=== PATIENT | female | born 1960 | race Caucasian/White ===

== ENCOUNTER 2017-02-14 21:44 | Inpatient (IN) | payer OTHER ==
[~2017-02-14] VITALS: Ht 172.7 cm; Wt 96.0 kg
[2017-02-14 21:45] VITALS: BP 135/83; PULSE 129; RESP 16; TEMP 98.2; O2SAT 96
[2017-02-15] MEDS ORDERED: BENA10TA PO (00:08)
[2017-02-15] MEDS ORDERED: SODIUM CHLOR 0.9% 1000 ML INJ 1,000 ML IV SCH (00:26)
[2017-02-15] MEDS ORDERED: MORPHINE SULFATE 4 MG/ML INJ IV PUSH ONE ×2 (00:30→03:00)
[2017-02-15] MEDS ORDERED: SODIUM CHLORIDE 0.9% FLUSH 10 ML FLUSH IV FLUSH PRN ×3 (00:30→23:00)
[2017-02-15] MEDS ORDERED: ONDANSETRON HCL 4 MG/2 ML VIAL IVP ONE (00:30)
[2017-02-15 00:42] LABS: AUTOMATED NEUTROPHIL # 10.8 TH/MM3 (1.8-7.7); BASOPHIL % 0.3 % (0.0-2.0); EOSINOPHIL % 0.1 % (0.0-4.0); HEMATOCRIT 38.1 % (35.0-46.0); HEMO FLAGS DIFF FINAL; LYMPH % 5.5 % (9.0-44.0); LYMPHOCYTE # 0.7 TH/MM3 (1.0-4.8); MEAN CELL VOLUME 79.7 FL (80.0-100.0); MEAN CORPUSCULAR HEMOGLOBIN 25.1 PG (27.0-34.0); MEAN CORPUSCULAR HGB CONC 31.4 % (32.0-36.0); MONO % 6.8 % (0.0-8.0); NEUT % 87.3 % (16.0-70.0); PLATELET COUNT 446 TH/MM3 (150-450); RED BLOOD COUNT 4.78 MIL/MM3 (4.00-5.30); RED CELL DISTRIBUTION WIDTH 16.1 % (11.6-17.2); WHITE BLOOD COUNT 12.3 TH/MM3 (4.0-11.0)
[2017-02-15 00:55] LABS: APTT (PATIENT) 25.7 SEC (24.3-30.1); PROTHROMBIN TIME - PATIENT 10.7 SEC (9.8-11.6)
[2017-02-15 01:03] VITALS: BP 127/61; PULSE 98; RESP 18; O2SAT 96
[2017-02-15 01:03] LABS: ALT (GPT) 17 U/L (10-53); ANION GAP 12 MEQ/L (5-15); AST (GOT) 15 U/L (15-37); BICARBONATE 21.1 MEQ/L (21.0-32.0); BLOOD UREA NITROGEN 18 MG/DL (7-18); CHLORIDE 104 MEQ/L (98-107); GLOMERULAR FILTRATION RATE 74 ML/MIN (>89); POTASSIUM 4.1 MEQ/L (3.5-5.1); SODIUM (NA) 137 MEQ/L (136-145)
[2017-02-15 01:07] LABS: ALKALINE PHOSPHATASE 95 U/L (45-117); INDIRECT BILIRUBIN 0.3 MG/DL (0.0-0.8); TOTAL BILIRUBIN ADULT 0.4 MG/DL (0.2-1.0)
[2017-02-15] MEDS ORDERED: IOHEXOL 350 MG/ML 10 ML VIAL (for RAD DIAG) IV ONE (01:41)
--- NOTE | 2017-02-15 01:56 | RADRPT ---
EXAM DATE/TIME: 02/15/2017 01:18 [place] COMPARISON: No previous studies available for comparison. INDICATIONS : Diffuse abdominal pain, fever, vomiting and constipation. IV CONTRAST: 75 cc Omnipaque 350 (iohexol) IV ORAL CONTRAST: No oral contrast ingested. RADIATION DOSE: 10.16 CTDIvol (mGy) MEDICAL HISTORY : Hypertension. SURGICAL HISTORY : None. ENCOUNTER: Initial ACUITY: 1 week PAIN SCALE: 8/10 LOCATION: All quadrants. TECHNIQUE: Volumetric scanning of the abdomen and pelvis was performed. Using automated exposure control and ad justment of the mA and/or kV according to patient size, radiation dose was kept as low as reasonably achievable to obtain optimal diagnostic quality images. DICOM format image data is available electro nically for review and comparison. FINDINGS: LOWER LUNGS: Linear atelectasis/scarring in both lung bases. Small paraesophageal hiatal hernia. LIVER: Homogeneous density without lesion. There is no dilation of the biliary tree. No calcified gallston es. SPLEEN: Normal size without lesion. PANCREAS: Within normal limits. KIDNEYS: Normal in size and shape. There is no mass, stone or hydronephrosis. Small renal cortical cysts. ADRENAL GLANDS: Within normal limits. VASCULAR: There is no aortic aneurysm. BOWEL/MESENTERY: Significant distention of the small bowel and colon with a discrete transition in the region of the s igmoid. At the transition point, there appears to be some bowel wall thickening and increased density possibly representing carcinoma. The distal sigmoid and rectum are normal in caliber. No significant diverticular disease identified. ABDOMINAL WALL: Within normal limits. RETROPERITONEUM: There is no lymphadenopathy. BLADDER: No wall thickening or mass. REPRODUCTIVE: Within normal limits. Uterus is retroverted. Very small amount of free fluid in the deep pelvis. INGUINAL: There is no lymphadenopathy or hernia. MUSCULOSKELETAL: Within normal limits for patient age. CONCLUSION: 1. Air and fluid distention of the small bowel and colon with a discrete transition in the region of the sigmoid. Distal sigmoid and rectum are normal in caliber. 2. At the transition point, there is focal restriction of the bowel lumen with increased density. Fin dings could represent carcinoma. Sigmoidoscopy is recommended for further evaluation. No regional colby nopathy or distant metastatic disease identified. 3. Retroverted uterus. Félix Andujar MD on February 15, 2017 at 1:46 Board Certified Radiologist. This report was verified electronically.
--- NOTE | 2017-02-15 02:54 | PD ---
HPI Chief Complaint: GI Complaint Time Seen by Provider: 00:16 Travel History International Travel<30 days: No Contact w/Intl Traveler<30days: No Traveled to known affect area: No History of Present Illness HPI Patient is a 56-year-old female comes in complaining of abdominal pain with nausea and vomiting. She says the pain started Saturday night after eating dinner. She says the pain is mostly been located in her upper abdomen, but sometimes goes down to the lower abdomen. She says the pain seems to be waxing and waning. She has had nausea and vomiting for the past few days. She says today the pain got much worse. She has not had any fever or chills. She denies any dysuria. She has never had any abdominal surgeries. [facility] Past Medical History Diminished Hearing: No Hypertension: Yes Immunizations Current: Yes Tetanus Vaccination: < 5 Years Influenza Vaccination: Yes ?: Unknown LMP: CURRENT : 1 Para: 1 Past Surgical History Surgical History: No Previous Surgery Social History Alcohol Use: No Tobacco Use: No Substance Use: No Allergies-Medications (Allergen,Severity, Reaction): Coded Allergies: No Known Allergies (Unverified , 02/14/17) Reported Meds & Prescriptions Reported Meds & Active Scripts Active Reported Benazepril (Benazepril HCl) 10 Mg Tab 10 Mg PO DAILY Review of Systems Except as stated in HPI: all other systems reviewed are Neg General / Constitutional: No: Fever, Chills HENT: No: Headaches Cardiovascular: No: Chest Pain or Discomfort Respiratory: No: Shortness of Breath Gastrointestinal: Positive: Nausea, Vomiting, Abdominal Pain, Constipation, No : Diarrhea Genitourinary: No: Dysuria Skin: No Rash, No Change in Pigmentation Neurologic: No: Weakness, Dizziness Physical Exam Narrative GENERAL: Awake and alert, in mild distress due to pain. SKIN: Focused skin assessment warm/dry. HEAD: Atraumatic. Normocephalic. EYES: Pupils equal and round. No scleral icterus. ENT: Mucous membranes pink and moist. NECK: Trachea midline. No JVD. CARDIOVASCULAR: Regular rate and rhythm. No murmur appreciated. RESPIRATORY: No accessory muscle use. Clear to auscultation. Breath sounds equal bilaterally. GASTROINTESTINAL: Abdomen is distended and tense. Diffuse tenderness to palpation, worse in the right upper quadrant and epigastric area. No rebound, voluntary guarding. MUSCULOSKELETAL: No obvious deformities. No clubbing. No cyanosis. No edema. NEUROLOGICAL: Awake and alert. No obvious cranial nerve deficits. Motor grossly within normal limits. Normal speech. PSYCHIATRIC: Appropriate mood and affect; insight and judgment normal. Data Data Last Documented VS Vital Signs Date Time Temp Pulse Resp B/P Pulse Ox O2 Delivery O2 Flow Rate FiO2 02/15/17 01:03 98 18 127/61 96 Room Air 02/14/17 21:45 98.2 Orders Electrocardiogram (02/14/17 ) Basic Metabolic Panel (Bmp) (02/15/17:26) Complete Blood Count With Diff (02/15/17:) Lipase (02/15/17) Lactic Acid (02/15/17) Prothrombin Time / Inr (Pt) (02/15/17:) Act Partial Throm Time (Ptt) (02/15/17) Urinalysis - C+S If Indicated (02/15/17:) Ua Includes Microscopic (02/15/17) Ct Abd/Pel W Iv Contrast(Rout) (02/15/17:) Iv Access Insert/Monitor (02/15/17:) Ecg Monitoring (02/15/17:) Oximetry (02/15/17:) Morphine Inj (Morphine Inj) (02/15/17 00:30) Ondansetron Inj (Zofran Inj) (02/15/17 00:30) Sodium Chlor 0.9% 1000 Ml Inj (Ns 1000 M (02/15/17:26) Sodium Chloride 0.9% Flush (Ns Flush) (02/15/17 00:30) Ed Urine Pregnancytest Poc (02/15/17 00:26) Hepatic Functional Panel (02/15/17:) Troponin I (02/15/17 00:25) Iohexol 350 Inj (Omnipaque 350 Inj) (02/15/17 01:41) Admit To Inpatient (02/15/17 ) Vital Signs (Adult) Q4H (02/15/17 02:49) Activity Oob With Assistance (02/15/17 02:49) Dado Operator / Telemetry .CONTINUOUS (02/15/17 02:49) Intake + Output MICHAEL.QSHIFT (02/15/17 02:49) Diet Npo (02/15/17 Breakfast) Sodium Chlor 0.9% 1000 Ml Inj (Ns 1000 M (02/15/17 02:49) Sodium Chloride 0.9% Flush (Ns Flush) (02/15/17 03:00) Sodium Chloride 0.9% Flush (Ns Flush) (02/15/17 09:00) Ondansetron Inj (Zofran Inj) (02/15/17 03:00) Basic Metabolic Panel (Bmp) (02/16/17 06:00) Complete Blood Count With Diff (02/16/17 06:00) Naloxone Inj (Narcan Inj) (02/15/17 03:00) Inpatient Certification (02/15/17 ) Consult General Surgery (02/15/17 ) Admit Order (Ed Use Only) (02/15/17 ) Insert Ng Tube (02/15/17 02:51) Ondansetron Inj (Zofran Inj) (02/15/17 03:00) Morphine Inj (Morphine Inj) (02/15/17 03:00) Morphine Inj (Morphine Inj) (02/15/17 03:00) Labs Laboratory Tests Test 02/15/17 02/15/17 00:25 02:25 White Blood Count 12.3 TH/MM3 Red Blood Count 4.78 MIL/MM3 Hemoglobin 12.0 GM/DL Hematocrit 38.1 % Mean Corpuscular Volume 79.7 FL Mean Corpuscular Hemoglobin 25.1 PG Mean Corpuscular Hemoglobin 31.4 % Concent Red Cell Distribution Width 16.1 % Platelet Count 446 TH/MM3 Mean Platelet Volume 9.4 FL Neutrophils (%) (Auto) 87.3 % Lymphocytes (%) (Auto) 5.5 % Monocytes (%) (Auto) 6.8 % Eosinophils (%) (Auto) 0.1 % Basophils (%) (Auto) 0.3 % Neutrophils # (Auto) 10.8 TH/MM3 Lymphocytes # (Auto) 0.7 TH/MM3 Monocytes # (Auto) 0.8 TH/MM3 Eosinophils # (Auto) 0.0 TH/MM3 Basophils # (Auto) 0.0 TH/MM3 CBC Comment DIFF FINAL Differential Comment Prothrombin Time 10.7 SEC Prothromb Time International 1.0 RATIO Ratio Activated Partial 25.7 SEC Thromboplast Time Sodium Level 137 MEQ/L Potassium Level 4.1 MEQ/L Chloride Level 104 MEQ/L Carbon Dioxide Level 21.1 MEQ/L Anion Gap 12 MEQ/L Blood Urea Nitrogen 18 MG/DL Creatinine 0.81 MG/DL Estimat Glomerular Filtration 74 ML/MIN Rate Random Glucose 122 MG/DL Lactic Acid Level 0.8 mmol/L Calcium Level 9.2 MG/DL Total Bilirubin 0.4 MG/DL Direct Bilirubin 0.1 MG/DL Indirect Bilirubin 0.3 MG/DL Aspartate Amino Transf 15 U/L (AST/SGOT) Alanine Aminotransferase 17 U/L (ALT/SGPT) Alkaline Phosphatase 95 U/L Troponin I LESS THAN 0.02 NG/ML Total Protein 8.5 GM/DL Albumin 3.5 GM/DL Lipase 103 U/L Urine Color YELLOW Urine Turbidity HAZY Urine pH 6.0 Urine Specific [place] GREATER THAN 1.050 Urine Protein 30 mg/dL Urine Glucose (UA) NEG mg/dL Urine Ketones 150 mg/dL Urine Occult Blood LARGE Urine Nitrite NEG Urine Bilirubin SMALL Urine Urobilinogen LESS THAN 2.0 MG/DL Urine Leukocyte Esterase MOD Urine RBC /hpf Urine WBC /hpf Urine Squamous Epithelial 1 /hpf Cells Urine Hyaline Casts 20 /lpf Urine Granular Casts 4 /lpf Urine Waxy Casts 12 /lpf Urine Mucus FEW /lpf Urine Yeast (Budding) FEW Microscopic Urinalysis Comment CULTURE INDICATED MDM Medical Decision Making Medical Screen Exam Complete: Yes Emergency Medical Condition: Yes Interpretation(s) ECG shows sinus tachycardia, no ST elevation or depression. Differential Diagnosis Bowel obstruction versus colitis versus cholecystitis versus pancreatitis Narrative Course Patient is a 56-year-old female who comes in complaining of abdominal pain with nausea and vomiting. Exam shows distended abdomen, tender to palpation diffusely. IV established, labs sent. Labs show no acute abnormalities. Patient given IV fluids, morphine, Zofran. CT abdomen and pelvis shows concern for bowel obstruction with a transition point in the sigmoid colon which is concerning for malignancy. Due to placed. Surgery consultation. Patient admitted for further management. Diagnosis Primary Impression: Bowel obstruction Qualified Code: K56.69 - Other specified intestinal obstruction Admitting Information Admitting Physician Requests: Admit Condition: Stable Jessica Gardner MD Feb 15, 2017 02:54
[2017-02-15 02:57] LABS: BLOOD, URINE LARGE (NEG); COMMENT (UR) CULTURE INDICATED; CULTURE IF INDICATED CULTURE INDICATED; GLUCOSE,URINE NEG (NEG); GRANULAR CAST, URINE 4 /lpf; HYALINE CAST, URINE 20 /lpf (RARE); KETONE, URINE 150 mg/dL (NEG); MUCUS URINE FEW /lpf (OCC); NITRITE,URINE NEG (NEG); SQUAMOUS EPITHELIAL CELL URINE 1 /hpf (0-5); URINE COLOR YELLOW (YELLW/STRAW); WAXY CAST, URINE 12 /lpf
[2017-02-15] MEDS ORDERED: ONDANSETRON HCL 4 MG/2 ML VIAL IV PUSH ONE ×2 (03:00→12:00)
[2017-02-15] MEDS ORDERED: NALOXONE HCL 0.4 MG/ML AMP IV PRN ×2 (03:00→22:45)
[2017-02-15] MEDS ORDERED: ONDANSETRON HCL 4 MG/2 ML VIAL IVP PRN (03:00)
[2017-02-15] MEDS: SODIUM CHLOR 0.9% 1000 ML INJ 1,000 ML IV SCH ×3 (03:09→22:45)
[2017-02-15 03:24] VITALS: BP 132/59
[2017-02-15 03:48] VITALS: BP 123/64; PULSE 105; RESP 17; TEMP 98; O2SAT 98
--- NOTE | 2017-02-15 04:19 | HHI.HP ---
[facility] Service [facility] Primary Care Physician Non-Staff Admission Diagnosis Bowel obstruction Diagnoses: Chief Complaint: epigastric pain Travel History International Travel<30 Days: No Contact w/Intl Traveler <30 Da: No Traveled to Known Affected Are: No History of Present Illness Written by KATIE Espinal acting as scribe for [Braxton] on 02/15/17 at 04: 19. 56 y/o female with a history of HTN came to the ED with complaints of epigastric pain since Saturday, that continues to worsen with associated nausea and vomiting 2-3 times a day. She has not been able to eat since Saturday She has been able to have a small BM and pass gas. She has been having fevers and chills , but did not take a temperature. Denies any chest pain, or sob. Last Sigmoscopy was 8 years ago in which just showed hemorrhoids. She is currently here visiting from [place]. Review of Systems Constitutional: COMPLAINS OF: Fever, Chills Respiratory: DENIES: Cough, Shortness of breath Cardiovascular: DENIES: Chest pain, Lower Extremity Edema Gastrointestinal: COMPLAINS OF: Abdominal pain, Nausea, Vomiting, DENIES: Constipation, Diarrhea Genitourinary: DENIES: Hematuria, Dysuria Musculoskeletal: DENIES: Back pain, Neck pain Integumentary: DENIES: Rash Hematologic/lymphatic: DENIES: Lymphadenopathy Immunologic/allergic: DENIES: Urticaria Neurologic: DENIES: Headache Past Family Social History Past Medical History HTN Past Surgical History Patient denies any surgical history Reported Medications Reported Meds & Active Scripts Active Reported Benazepril (Benazepril HCl) 10 Mg Tab 10 Mg PO DAILY Allergies: Coded Allergies: No Known Allergies (Unverified , 02/14/17) Active Ordered Medications Current Medications Medications (Trade) Dose Ordered Sig/Jose E Route Start Time Stop Time Status Last Admin (NS 1000 ml Inj) 1,000 ml @ 100 mls/hr Q10H IV 02/15/17 02:49 02/15/17 03:09 (NS Flush) 2 ml UNSCH PRN IV FLUSH 02/15/17 03:00 (NS Flush) 2 ml BID IV FLUSH 02/15/17 09:00 (Zofran Inj) 4 mg Q6H PRN IVP 02/15/17 03:00 (Narcan Inj) 0.4 mg UNSCH PRN IV 02/15/17 03:00 (Morphine Inj) 2 mg Q3H PRN IV PUSH 02/15/17 03:00 Family History Patient denies any family history no heart disease or cancers. Social History Patient denies any tobacco, alcohol or illicit drug use. Physical Exam Vital Signs Vital Signs Date Time Temp Pulse Resp B/P Pulse Ox O2 Delivery O2 Flow Rate FiO2 02/15/17 03:24 111 16 132/59 96 02/15/17 01:03 98 18 127/61 96 Room Air 02/14/17 21:45 98.2 129 16 135/83 96 Room Air Physical Exam GENERAL: This is a well-nourished, well-developed patient, in no apparent distress. SKIN: No rashes, ecchymoses or lesions. Cool and dry. HEAD: Atraumatic. Normocephalic. EYES: Pupils equal round and reactive. Extraocular motions intact. ENT: Nose without bleeding, purulent drainage or septal hematoma. NECK: Trachea midline. No JVD or lymphadenopathy. CARDIOVASCULAR: Regular rate and rhythm without murmurs, gallops, or rubs. RESPIRATORY: Clear to auscultation. Breath sounds equal bilaterally. No wheezes , rales, or rhonchi. GASTROINTESTINAL: Abdomen soft, epigastric tenderness, nondistended. hypoactive BS MUSCULOSKELETAL: Extremities without clubbing, cyanosis, or edema. No joint tenderness, effusion, or edema noted. No calf tenderness. NEUROLOGICAL: Awake and alert. Motor and sensory grossly within normal limits.. Normal speech. Laboratory Laboratory Tests Test 02/15/17 02/15/17 00:25 02:25 White Blood Count 12.3 Red Blood Count 4.78 Hemoglobin 12.0 Hematocrit 38.1 Mean Corpuscular Volume 79.7 Mean Corpuscular Hemoglobin 25.1 Mean Corpuscular Hemoglobin 31.4 Concent Red Cell Distribution Width 16.1 Platelet Count 446 Mean Platelet Volume 9.4 Neutrophils (%) (Auto) 87.3 Lymphocytes (%) (Auto) 5.5 Monocytes (%) (Auto) 6.8 Eosinophils (%) (Auto) 0.1 Basophils (%) (Auto) 0.3 Neutrophils # (Auto) 10.8 Lymphocytes # (Auto) 0.7 Monocytes # (Auto) 0.8 Eosinophils # (Auto) 0.0 Basophils # (Auto) 0.0 CBC Comment DIFF FINAL Differential Comment Prothrombin Time 10.7 Prothromb Time International 1.0 Ratio Activated Partial 25.7 Thromboplast Time Sodium Level 137 Potassium Level 4.1 Chloride Level 104 Carbon Dioxide Level 21.1 Anion Gap 12 Blood Urea Nitrogen 18 Creatinine 0.81 Estimat Glomerular Filtration 74 Rate Random Glucose 122 Lactic Acid Level 0.8 Calcium Level 9.2 Total Bilirubin 0.4 Direct Bilirubin 0.1 Indirect Bilirubin 0.3 Aspartate Amino Transf 15 (AST/SGOT) Alanine Aminotransferase 17 (ALT/SGPT) Alkaline Phosphatase 95 Troponin I LESS THAN 0.02 Total Protein 8.5 Albumin 3.5 Lipase 103 Urine Color YELLOW Urine Turbidity HAZY Urine pH 6.0 Urine Specific [place] GREATER THAN 1.050 Urine Protein 30 Urine Glucose (UA) NEG Urine Ketones 150 Urine Occult Blood LARGE Urine Nitrite NEG Urine Bilirubin SMALL Urine Urobilinogen LESS THAN 2.0 Urine Leukocyte Esterase MOD Urine RBC Urine WBC Urine Squamous Epithelial 1 Cells Urine Hyaline Casts 20 Urine Granular Casts 4 Urine Waxy Casts 12 Urine Mucus FEW Urine Yeast (Budding) FEW Microscopic Urinalysis Comment CULTURE INDICATED Date/Time Procedure Status Source Growth 02/15/17 02:25 Urine Culture Received Urine Random Urine Pending Result Diagram: 02/15/17 0025 02/15/17 0025 Imaging Last Impressions Abdomen/Pelvis CT 02/15/17 0026 Signed Impressions: Service Date/Time: Wednesday, February 15, 2017 01:18 - CONCLUSION: 1. Air and fluid distention of the small bowel and colon with a discrete transition in the region of the sigmoid. Distal sigmoid and rectum are normal in caliber. 2. At the transition point, there is focal restriction of the bowel lumen with increased density. Findings could represent carcinoma. Sigmoidoscopy is recommended for further evaluation. No regional adenopathy or distant metastatic disease identified. 3. Retroverted uterus. Félix Andujar MD Assessment and Plan Problem List: (1) Small bowel obstruction ICD Code: K56.69 Status: Acute (2) HTN (hypertension) ICD Code: I10 Status: Acute (3) Leukocytosis ICD Code: D72.829 Status: Acute Assessment and Plan 56 y/o female with a history of HTN came to the ED with complaints of epigastric pain since Saturday, that continues to worsen with associated nausea and vomiting 2-3 times a day. Small bowel obstruction Abdomen CT reviewed, shows Air and fluid distention of the small bowel and colon with a discrete transition in the region of the sigmoid. Distal sigmoid and rectum are normal in caliber. At the transition point, there is focal restriction of the bowel lumen with increased density. Findings could represent carcinoma. Sigmoidoscopy is recommended for further evaluation. No regional adenopathy or distant metastatic disease identified. -NGT placed to LIWS -Consult general surgery for recommendations -Consult GI for recommendations regarding increased density in the bowel lumen -IVF ordered, NPO Leukocytosis, WBC 12.3, likely source is bowel, possible UTI Abnormal UA -Urine culture pending -CBC in AM HTN, chronic, currently stable -resume home medications when no longer NPO DVT prophylaxis: SCDs This note was transcribed by tejal [Monique Doyle]. I, Dr. Taty Limon personally performed the history, physical exam, and medical decision making; and confirmed the accuracy of the information in the transcribed note. Authenticated by Dr. Taty Limon on02/15/17 at 04:19. Discussed Condition With Patient and family Physician Certification 2 Midnight Certification Type: Admission for Inpatient Services Order for Inpatient Services The services are ordered in accordance with Medicare regulations or non- Medicare payer requirements, as applicable. In the case of services not specified as inpatient-only, they are appropriately provided as inpatient services in accordance with the 2-midnight benchmark. Estimated LOS (days): 2 days is the estimated time the patient will need to remain in the hospital, assuming treatment plan goals are met and no additional complications. Post-Hospital Plan: Home Monique Doyle Feb 15, 2017 04:19 Taty Limon MD Feb 15, 2017 07:58
[2017-02-15] MEDS: MORPHINE SULFATE 8 MG/ML INJ IV PUSH PRN ×3 (06:00→15:54)
[2017-02-15 08:00] VITALS: BP 132/74; PULSE 122; RESP 16; TEMP 98; O2SAT 98
[2017-02-15] MEDS ORDERED: SODIUM CHLORIDE 0.9% FLUSH 10 ML FLUSH IV FLUSH SCH (09:00)
--- NOTE | 2017-02-15 09:05 | PD.CONS ---
HPI History of Present Illness This is a 56 year old female who presented to the emergency room for evaluation of abdominal pain with associated nausea and vomiting. She was in her normal state of health up until Saturday evening, when she had the sudden onset of diffuse abdominal pain. She describes this as some intermittent sharp, stabbing pain with no radiation with associated nausea and vomiting with bilious material. She denies any fevers or chills. She has had some mild abdominal distention/bloating. She does not normally have constipation but felt that she was constipated Saturday evening and therefore took several doses of MiraLAX. She reports that she had a soft brown stool yesterday. Other than the constipation Saturday, she has not had any changes in her bowel habits. She denies any decreased appetite or weight loss prior to Saturday. She denies any heartburn or reflux, hematemesis, melena, or hematochezia. Of note, she states that she just started her menses yesterday and did not want this to be confused as rectal bleeding. She has never had a full colonoscopy. She did have a sigmoidoscopy about 6 years ago for hemorrhoids. She denies any family history of esophageal, gastric, or colorectal cancer. CT scan of the abdomen and pelvis (02/15/17) disease revealed 1. Air and fluid distention of the small bowel and colon with a discrete transition in the region of the sigmoid. Distal sigmoid and rectum are normal in caliber. 2. At the transition point, there is focal restriction of the bowel lumen with increased density. Findings could represent carcinoma. Sigmoidoscopy is recommended for further evaluation. No regional adenopathy or distant metastatic disease identified. 3. Retroverted uterus. is following and has recommended endoscopic evaluation with sigmoidoscopy/colonoscopy. Of note she denies any history of diverticulosis or diverticulitis. PFSH Past Medical History HTN Hemorrhoids Past Surgical History Sigmoidoscopy Coded Allergies: No Known Allergies (Unverified , 02/14/17) Medications Allergies Coded Allergies Type Severity Reaction Last Updated Verified No Known Allergies 02/14/17 No Active Scripts Medications Dose Route/Sig Days Date Category Benazepril (Benazepril HCl) 10 Mg Tab 10 Mg PO DAILY 02/15/17 Reported Family History Denies any family history of esophageal, gastric, or colorectal cancer. Social History Patient denies any tobacco, alcohol or illicit drug use. Review of Systems Constitutional: COMPLAINS OF: Fatigue, DENIES: Fever, Weight loss, Chills Respiratory: DENIES: Cough, Shortness of breath Cardiovascular: DENIES: Chest pain Gastrointestinal: COMPLAINS OF: Abdominal pain, Constipation, Nausea, Vomiting , Swelling of Abdomen, DENIES: Black stools, Bloody stools, Diarrhea, Heartburn , Hematemesis Musculoskeletal: DENIES: Joint pain, Back pain Hematologic/lymphatic: DENIES: Bruising Neurologic: COMPLAINS OF: Headache Psychiatric: DENIES: Anxiety, Confusion GI Exam Vitals I&O Vital Signs Date Time Temp Pulse Resp B/P Pulse Ox O2 Delivery O2 Flow Rate FiO2 02/15/17 03:48 98.0 105 17 123/64 98 02/15/17 03:24 111 16 132/59 96 02/15/17 01:03 98 18 127/61 96 Room Air 02/14/17 21:45 98.2 129 16 135/83 96 Room Air I/O 02/14/17 02/14/17 02/14/17 02/15/17 02/15/17 02/15/17 07:00 15:00 23:00 07:00 15:00 23:00 Intake Total 0 ml Output Total 200 ml Balance -200 ml Intake Oral 0 ml Output Gastric Drainage Total 200 ml # Voids 0 # Bowel Movements 0 Imaging Last Impressions Abdomen/Pelvis CT 02/15/17 0026 Signed Impressions: Service Date/Time: Wednesday, February 15, 2017 01:18 - CONCLUSION: 1. Air and fluid distention of the small bowel and colon with a discrete transition in the region of the sigmoid. Distal sigmoid and rectum are normal in caliber. 2. At the transition point, there is focal restriction of the bowel lumen with increased density. Findings could represent carcinoma. Sigmoidoscopy is recommended for further evaluation. No regional adenopathy or distant metastatic disease identified. 3. Retroverted uterus. Félix Andujar MD Laboratory Test 02/15/17 02/15/17 00:25 02:25 White Blood Count 12.3 TH/MM3 Red Blood Count 4.78 MIL/MM3 Hemoglobin 12.0 GM/DL Hematocrit 38.1 % Mean Corpuscular Volume 79.7 FL Mean Corpuscular Hemoglobin 25.1 PG Mean Corpuscular Hemoglobin 31.4 % Concent Red Cell Distribution Width 16.1 % Platelet Count 446 TH/MM3 Mean Platelet Volume 9.4 FL Neutrophils (%) (Auto) 87.3 % Lymphocytes (%) (Auto) 5.5 % Monocytes (%) (Auto) 6.8 % Eosinophils (%) (Auto) 0.1 % Basophils (%) (Auto) 0.3 % Neutrophils # (Auto) 10.8 TH/MM3 Lymphocytes # (Auto) 0.7 TH/MM3 Monocytes # (Auto) 0.8 TH/MM3 Eosinophils # (Auto) 0.0 TH/MM3 Basophils # (Auto) 0.0 TH/MM3 CBC Comment DIFF FINAL Differential Comment Prothrombin Time 10.7 SEC Prothromb Time International 1.0 RATIO Ratio Activated Partial 25.7 SEC Thromboplast Time Sodium Level 137 MEQ/L Potassium Level 4.1 MEQ/L Chloride Level 104 MEQ/L Carbon Dioxide Level 21.1 MEQ/L Anion Gap 12 MEQ/L Blood Urea Nitrogen 18 MG/DL Creatinine 0.81 MG/DL Estimat Glomerular Filtration 74 ML/MIN Rate Random Glucose 122 MG/DL Lactic Acid Level 0.8 mmol/L Calcium Level 9.2 MG/DL Total Bilirubin 0.4 MG/DL Direct Bilirubin 0.1 MG/DL Indirect Bilirubin 0.3 MG/DL Aspartate Amino Transf 15 U/L (AST/SGOT) Alanine Aminotransferase 17 U/L (ALT/SGPT) Alkaline Phosphatase 95 U/L Troponin I LESS THAN 0.02 NG/ML Total Protein 8.5 GM/DL Albumin 3.5 GM/DL Lipase 103 U/L Urine Color YELLOW Urine Turbidity HAZY Urine pH 6.0 Urine Specific [place] GREATER THAN 1.050 Urine Protein 30 mg/dL Urine Glucose (UA) NEG mg/dL Urine Ketones 150 mg/dL Urine Occult Blood LARGE Urine Nitrite NEG Urine Bilirubin SMALL Urine Urobilinogen LESS THAN 2.0 MG/DL Urine Leukocyte Esterase MOD Urine RBC /hpf Urine WBC /hpf Urine Squamous Epithelial 1 /hpf Cells Urine Hyaline Casts 20 /lpf Urine Granular Casts 4 /lpf Urine Waxy Casts 12 /lpf Urine Mucus FEW /lpf Urine Yeast (Budding) FEW Microscopic Urinalysis Comment CULTURE INDICATED Date/Time Procedure Status Source Growth 02/15/17 02:25 Urine Culture Received Urine Random Urine Pending Physical Examination HEENT: Normocephalic; atraumatic; no jaundice. CHEST: CTA CARDIAC: RRR ABDOMEN: Soft, mildly distended, mild diffuse tenderness; no hepatosplenomegaly ; bowel sounds are present in all four quadrants. EXTREMITIES: No clubbing, cyanosis, or edema. SKIN: Normal; no rash; no jaundice. Rosacea SOFTWARE COMPUTER SPECIALIST: No focal deficits; alert and oriented times three. Assessment and Plan Plan ASSESSMENT: - Bowel obstruction with transition in sigmoid colon. Sudden onset of constipation, nausea/vomiting/abdominal pain Saturday. CT scan of the abdomen and pelvis (02/15/17) disease revealed 1. Air and fluid distention of the small bowel and colon with a discrete transition in the region of the sigmoid. Distal sigmoid and rectum are normal in caliber. 2. At the transition point, there is focal restriction of the bowel lumen with increased density. Findings could represent carcinoma. Sigmoidoscopy is recommended for further evaluation. No regional adenopathy or distant metastatic disease identified. 3. Retroverted uterus. No known history of diverticulosis, diverticulitis. GS is following and has recommended endoscopic evaluation with sigmoidoscopy/colonoscopy. No decreased appetite/weight loss until Saturday. No melena/rectal bleeding. Never had complete colonoscopy. Had sigmoidoscopy about 6 years ago for hemorrhoids. No family hx of esophageal, gastric, or colorectal cancer. NPO. NGT to LIWS. - Abdominal pain with n/v secondary to above. NPO, NGT to LIWS. - Leukocytosis, mild. 12.3 - HTN per attending. PLAN: - Plan for sigmoidoscopy/colonoscopy, possible sigmoid stent placement - Obtain consents - NPO - SSE x 2 this am - CEA, AFP, Ca19-9 - Monitor labs - GS following - Supportive care - Further recommendations to follow based on results of above - Pt seen and examined by Dr. Nam and myself and this note is written on his behalf Kusum Villalobos Feb 15, 2017 09:05
--- NOTE | 2017-02-15 09:18 | RADRPT ---
EXAM DATE/TIME: 02/15/2017 08:59 [facility] COMPARISON: CT ABDOMEN & PELVIS W CONTRAST, February 15, 2017, 1:18. INDICATIONS : Pain in abdomen since Saturday. MEDICAL HISTORY : None. SURGICAL HISTORY : None. ENCOUNTER: Initial ACUITY: 4 - 6 months PAIN SCORE: 10/10 LOCATION: Abdomen, epigastrum. FINDINGS: Supine view of the abdomen was performed. The abdominal bowel gas pattern is nonspecific. There is s ome air filled mildly dilated small bowel. There is some focal moderate to prominent dilatation of th e colon which was recently noted on the patient's CT scan of the abdomen/pelvis. The CT scan suggests a mass in the sigmoid colon suspicious for colon cancer. Residual contrast is seen in the urinary bl adder. The bony structures are grossly intact.. CONCLUSION: 1. Nonspecific bowel gas pattern 2. Focal prominent dilatation of the colon which appears to be secondary to a mass in the sigmoid col on suspicious for colon cancer as noted on the recent CT scan of the abdomen and pelvis.. Avery North MD on February 15, 2017 at 9:14 Board Certified Radiologist. This report was verified electronically.
[2017-02-15] MEDS: PROMETHAZINE INJ 25 MG/ML VIAL IM PRN (11:43)
[2017-02-15 12:00] VITALS: BP 140/65; PULSE 106; RESP 16; TEMP 98.8; O2SAT 97
[2017-02-15] MEDS ORDERED: NORMOSOL R INJ 2,000 ML IV ONE (12:00)
[2017-02-15] MEDS ORDERED: PROPOFOL 200 MG/20 ML AMP IV ONE ×2 (12:00→13:26)
[2017-02-15] MEDS ORDERED: LACTATED RINGER'S 1000 ML INJ 3,000 ML IV ONE (12:00)
--- NOTE | 2017-02-15 13:23 | EKG ---
Date Performed: 02/14/2017 Time Performed: 22:51:41 PTAGE: 56 years EKG: SINUS TACHYCARDIA ABNORMAL RHYTHM ECG NO PREVIOUS TRACING DOCTOR: Chris Conde Interpretating Date/Time 02/15/2017 13:22:06
[2017-02-15] MEDS ORDERED: DO NOT ADM ANY ANTICOAGULANT DRUGS PRN ×2 (13:55→22:00)
--- NOTE | 2017-02-15 13:55 | HHI.GIFU ---
Subjective Remarks Immediate postop note: Flexible sig with biopsy Indication: colonic obstruction with apparent mass in sigmoid colon Meds: GET Findings; Tumor located at 18-20cm from anal verge. Unable to get scope to pass through. Multiple biopsies taken. Rectum is normal, no other polypoid lesions. Objective Vitals I&O Vital Signs Date Time Temp Pulse Resp B/P Pulse Ox O2 Delivery O2 Flow Rate FiO2 02/15/17 03:48 98.0 105 17 123/64 98 02/15/17 03:24 111 16 132/59 96 02/15/17 01:03 98 18 127/61 96 Room Air 02/14/17 21:45 98.2 129 16 135/83 96 Room Air I/O 02/14/17 02/14/17 02/14/17 02/15/17 02/15/17 02/15/17 07:00 15:00 23:00 07:00 15:00 23:00 Intake Total 0 ml Output Total 200 ml Balance -200 ml Intake Oral 0 ml Output Gastric Drainage Total 200 ml # Voids 0 # Bowel Movements 0 Laboratory Laboratory Tests Test 02/15/17 02/15/17 02/15/17 00:25 02:25 10:53 White Blood Count 12.3 Red Blood Count 4.78 Hemoglobin 12.0 Hematocrit 38.1 Mean Corpuscular Volume 79.7 Mean Corpuscular Hemoglobin 25.1 Mean Corpuscular Hemoglobin 31.4 Concent Red Cell Distribution Width 16.1 Platelet Count 446 Mean Platelet Volume 9.4 Neutrophils (%) (Auto) 87.3 Lymphocytes (%) (Auto) 5.5 Monocytes (%) (Auto) 6.8 Eosinophils (%) (Auto) 0.1 Basophils (%) (Auto) 0.3 Neutrophils # (Auto) 10.8 Lymphocytes # (Auto) 0.7 Monocytes # (Auto) 0.8 Eosinophils # (Auto) 0.0 Basophils # (Auto) 0.0 CBC Comment DIFF FINAL Differential Comment Prothrombin Time 10.7 Prothromb Time International 1.0 Ratio Activated Partial 25.7 Thromboplast Time Sodium Level 137 Potassium Level 4.1 Chloride Level 104 Carbon Dioxide Level 21.1 Anion Gap 12 Blood Urea Nitrogen 18 Creatinine 0.81 Estimat Glomerular Filtration 74 Rate Random Glucose 122 Lactic Acid Level 0.8 Calcium Level 9.2 Total Bilirubin 0.4 Direct Bilirubin 0.1 Indirect Bilirubin 0.3 Aspartate Amino Transf 15 (AST/SGOT) Alanine Aminotransferase 17 (ALT/SGPT) Alkaline Phosphatase 95 Troponin I LESS THAN 0.02 Total Protein 8.5 Albumin 3.5 Lipase 103 Urine Color YELLOW Urine Turbidity HAZY Urine pH 6.0 Urine Specific [place] GREATER THAN 1.050 Urine Protein 30 Urine Glucose (UA) NEG Urine Ketones 150 Urine Occult Blood LARGE Urine Nitrite NEG Urine Bilirubin SMALL Urine Urobilinogen LESS THAN 2.0 Urine Leukocyte Esterase MOD Urine RBC Urine WBC Urine Squamous Epithelial 1 Cells Urine Hyaline Casts 20 Urine Granular Casts 4 Urine Waxy Casts 12 Urine Mucus FEW Urine Yeast (Budding) FEW Microscopic Urinalysis Comment CULTURE INDICATED Carcinoembryonic Antigen 22.9 CA 19-9 Antigen 169.2 Date/Time Procedure Status Source Growth 02/15/17 02:25 Urine Culture Received Urine Random Urine Pending Physical Exam HEENT: Pupils round and reactive to light; normocephalic; atraumatic; no jaundice. Throat is clear. NECK: Neck is supple, no JVD, no lymphadenopathy. CHEST: Chest is clear to auscultation and percussion. CARDIAC: Regular rate and rhythm with no murmur gallop or rubs. ABDOMEN: Soft, distended but not tender. EXTREMITIES: No clubbing, cyanosis, or edema. SKIN: Normal; no rash; no jaundice. WOMEN'S ACTIVITIES ADVISER: No focal deficits; alert and oriented times three. Assessment and Plan Plan ASSESSMENT: - Bowel obstruction with transition in sigmoid colon. Sudden onset of constipation, nausea/vomiting/abdominal pain Saturday. CT scan of the abdomen and pelvis (02/15/17) disease revealed 1. Air and fluid distention of the small bowel and colon with a discrete transition in the region of the sigmoid. Distal sigmoid and rectum are normal in caliber. 2. At the transition point, there is focal restriction of the bowel lumen with increased density. Findings could represent carcinoma. Sigmoidoscopy is recommended for further evaluation. No regional adenopathy or distant metastatic disease identified. 3. Retroverted uterus. No known history of diverticulosis, diverticulitis. is following and has recommended endoscopic evaluation with sigmoidoscopy/colonoscopy. No decreased appetite/weight loss until Saturday. No melena/rectal bleeding. Never had complete colonoscopy. Had sigmoidoscopy about 6 years ago for hemorrhoids. No family hx of esophageal, gastric, or colorectal cancer. NPO. NGT to LIWS. - Abdominal pain with n/v secondary to above. NPO, NGT to LIWS. - Leukocytosis, mild. 12.3 - HTN per attending. PLAN: - Sigmoidoscopy showed tumor filling the lumen. Unable to get small scope to pass through. Multiple biopsies were taken. This has appearance of a cancer. - Continue NG suction - SSE x 2 this am - CEA, AFP, Ca19-9 - Monitor labs - GS following - Supportive care Rosalio Nam MD Feb 15, 2017 13:55
--- NOTE | 2017-02-15 15:51 | RADRPT ---
EXAM DATE/TIME: 02/15/2017 15:40 [facility] COMPARISON: No previous studies available for comparison. INDICATIONS : Short of breath, rule out mets. MEDICAL HISTORY : Hypertension. SURGICAL HISTORY : None. ENCOUNTER: Subsequent ACUITY: 1 day PAIN SCORE: 0/10 LOCATION: Bilateral chest FINDINGS: The cardiac silhouette is normal in transverse diameter. The lungs are free of acute parenchymal opac ity. No effusions are identified. A nasogastric tube is in place with its tip in the stomach. There i s parenchymal scarring on the left. CONCLUSION: 1. No acute cardiopulmonary disease. Chris López MD on February 15, 2017 at 15:49 Board Certified Radiologist. This report was verified electronically.
[2017-02-15] MEDS: ONDANSETRON HCL 4 MG/2 ML VIAL IVP PRN (15:53)
--- NOTE | 2017-02-15 16:39 | PD.CONS ---
cc: Ean Martines MD HPI Service General Surgery Consult Requested By Dr. Limon Reason for Consult colonic bowel obstruction Primary Care Physician Non-Staff History of Present Illness This is a very pleasant 56 year old female with a past medical history of hypertension. She has had abdominal pain, nausea and vomiting for about 5 days. The pain is a 8/10, located in lower pelvis, radiated to lower quadrants, pain better with meds. She denies any sick contacts. She does state that she ate some shrimp that "didn't taste right" on Saturday prior to the onset of abdominal pain. She states her last bowel movement was yesterday which was soft brown and not unusual. She has never have an EGD or colonoscopy but several years ago had a sigmoidoscopy which was positive only for internal hemorrhoids. A General Surgery consultation has been requesting for evaluation of colonic obstruction with a questionable mass visualized on CT scan. Review of Systems Constitutional: COMPLAINS OF: Fatigue, Change in appetite, DENIES: Fever, Weight loss, Chills Endocrine: DENIES: Polydipsia, Polyuria, Polyphagia Eyes: DENIES: Diplopia Ears, nose, mouth, throat: DENIES: Tinnitus Respiratory: DENIES: Apneas, Cough Cardiovascular: DENIES: Chest pain Gastrointestinal: COMPLAINS OF: Abdominal pain, Nausea, DENIES: Constipation, Diarrhea Genitourinary: DENIES: Dyspareunia, Urinary frequency Musculoskeletal: DENIES: Joint pain Integumentary: DENIES: Abnormal pigmentation Hematologic/lymphatic: DENIES: Bruising Immunologic/allergic: DENIES: Eczema Neurologic: DENIES: Headache, Localized weakness Psychiatric: DENIES: Mood changes, Depression Past Family Social History Past Medical History Hypertension Past Surgical History None Reported Medications None Allergies: Coded Allergies: Biaxin (Verified Allergy, Severe, Rash, 02/15/17) Diflucan (Verified Allergy, Severe, Rash, 02/15/17) Keflex (Verified Allergy, Severe, Rash, 02/15/17) Penicillin (Verified Allergy, Severe, Anaphylaxis, 02/15/17) Uncoded Allergies: Z PAC (Allergy, Severe, Rash, 02/15/17) Active Ordered Medications Current Medications Medications (Trade) Dose Ordered Sig/Jose E Route Start Time Stop Time Status Last Admin (NS 1000 ml Inj) 1,000 ml @ 100 mls/hr Q10H IV 02/15/17 02:49 02/15/17 03:09 (NS Flush) 2 ml UNSCH PRN IV FLUSH 02/15/17 03:00 (NS Flush) 2 ml BID IV FLUSH 02/15/17 09:00 02/15/17 11:56 (Narcan Inj) 0.4 mg UNSCH PRN IV 02/15/17 03:00 (Morphine Inj) 2 mg Q3H PRN IV PUSH 02/15/17 03:00 02/15/17 15:54 (Zofran Inj) 4 mg Q4H PRN IVP 02/15/17 11:00 02/15/17 15:53 (Phenergan Inj) 25 mg Q6H PRN IM 02/15/17 08:45 02/15/17 11:43 Miscellaneous Information ALL NURSING DEPARTME... UNSCH PRN .XX 02/15/17 13:55 02/16/17 13:54 Family History No family history of gastric or colon cancer Social History Denies tobacco use Denies ETOH Denies illicit drugs Physical Exam Vital Signs Vital Signs Date Time Temp Pulse Resp B/P Pulse Ox O2 Delivery O2 Flow Rate FiO2 02/15/17 14:10 110 20 103/51 96 Room Air 02/15/17 14:00 110 17 120/52 97 Room Air 02/15/17 13:55 98.5 117 17 114/57 100 Room Air 02/15/17 12:00 98.8 106 16 140/65 97 02/15/17 08:00 98.0 122 16 132/74 98 02/15/17 03:48 98.0 105 17 123/64 98 02/15/17 03:24 111 16 132/59 96 02/15/17 01:03 98 18 127/61 96 Room Air 02/14/17 21:45 98.2 129 16 135/83 96 Room Air Physical Exam GENERAL: Very pleasant 56 year old female resting in bed in no acute distress. SKIN: Warm and dry. HEAD: Atraumatic. Normocephalic. EYES: Pupils equal and round. No scleral icterus. No injection or drainage. ENT: No nasal bleeding or discharge. Mucous membranes pink and moist. NECK: Trachea midline. CARDIOVASCULAR: Regular rate and rhythm. RESPIRATORY: No accessory muscle use. Clear to auscultation. Breath sounds equal bilaterally. GASTROINTESTINAL: Abdomen soft, mildly tender, nondistended. No visible scars on abdomen. NGT in place. MUSCULOSKELETAL: Extremities without clubbing, cyanosis, or edema. No obvious deformities. NEUROLOGICAL: Awake and alert. No obvious cranial nerve deficits. Motor grossly within normal limits. Five out of 5 muscle strength in the arms and legs. Normal speech. PSYCHIATRIC: Appropriate mood and affect; insight and judgment normal. Laboratory Laboratory Tests Test 02/15/17 02/15/17 02/15/17 00:25 02:25 10:53 White Blood Count 12.3 Red Blood Count 4.78 Hemoglobin 12.0 Hematocrit 38.1 Mean Corpuscular Volume 79.7 Mean Corpuscular Hemoglobin 25.1 Mean Corpuscular Hemoglobin 31.4 Concent Red Cell Distribution Width 16.1 Platelet Count 446 Mean Platelet Volume 9.4 Neutrophils (%) (Auto) 87.3 Lymphocytes (%) (Auto) 5.5 Monocytes (%) (Auto) 6.8 Eosinophils (%) (Auto) 0.1 Basophils (%) (Auto) 0.3 Neutrophils # (Auto) 10.8 Lymphocytes # (Auto) 0.7 Monocytes # (Auto) 0.8 Eosinophils # (Auto) 0.0 Basophils # (Auto) 0.0 CBC Comment DIFF FINAL Differential Comment Prothrombin Time 10.7 Prothromb Time International 1.0 Ratio Activated Partial 25.7 Thromboplast Time Sodium Level 137 Potassium Level 4.1 Chloride Level 104 Carbon Dioxide Level 21.1 Anion Gap 12 Blood Urea Nitrogen 18 Creatinine 0.81 Estimat Glomerular Filtration 74 Rate Random Glucose 122 Lactic Acid Level 0.8 Calcium Level 9.2 Total Bilirubin 0.4 Direct Bilirubin 0.1 Indirect Bilirubin 0.3 Aspartate Amino Transf 15 (AST/SGOT) Alanine Aminotransferase 17 (ALT/SGPT) Alkaline Phosphatase 95 Troponin I LESS THAN 0.02 Total Protein 8.5 Albumin 3.5 Lipase 103 Urine Color YELLOW Urine Turbidity HAZY Urine pH 6.0 Urine Specific [place] GREATER THAN 1.050 Urine Protein 30 Urine Glucose (UA) NEG Urine Ketones 150 Urine Occult Blood LARGE Urine Nitrite NEG Urine Bilirubin SMALL Urine Urobilinogen LESS THAN 2.0 Urine Leukocyte Esterase MOD Urine RBC Urine WBC Urine Squamous Epithelial 1 Cells Urine Hyaline Casts 20 Urine Granular Casts 4 Urine Waxy Casts 12 Urine Mucus FEW Urine Yeast (Budding) FEW Microscopic Urinalysis Comment CULTURE INDICATED Carcinoembryonic Antigen 22.9 CA 19-9 Antigen 169.2 Date/Time Procedure Status Source Growth 02/15/17 02:25 Urine Culture Received Urine Random Urine Pending Result Diagram: 02/25/17 1750 02/25/17 1750 Imaging Last 48 hours Impressions Abdomen/Pelvis CT 02/15/17 0026 Signed Impressions: Service Date/Time: Wednesday, February 15, 2017 01:18 - CONCLUSION: 1. Air and fluid distention of the small bowel and colon with a discrete transition in the region of the sigmoid. Distal sigmoid and rectum are normal in caliber. 2. At the transition point, there is focal restriction of the bowel lumen with increased density. Findings could represent carcinoma. Sigmoidoscopy is recommended for further evaluation. No regional adenopathy or distant metastatic disease identified. 3. Retroverted uterus. Félix Andujar MD Chest X-Ray 02/15/17 0000 Signed Impressions: Service Date/Time: Wednesday, February 15, 2017 15:40 - CONCLUSION: 1. No acute cardiopulmonary disease. Chris López MD Abdomen X-Ray 02/15/17 0000 Signed Impressions: Service Date/Time: Wednesday, February 15, 2017 08:59 - CONCLUSION: 1. Nonspecific bowel gas pattern 2. Focal prominent dilatation of the colon which appears to be secondary to a mass in the sigmoid colon suspicious for colon cancer as noted on the recent CT scan of the abdomen and pelvis.. 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 -NPO -NGT to LIWS -GI consulted --- plan for sigmoidoscopy today -Further recommendations following sigmoidoscopy -check CEA, ca19-9 -may need OR if gi unable to decompress -Thank you for this consult; we will continue to follow Discussed Condition With Dr. Conrad Restrepo Attending Statement Patient seen at bedside with and son concern for cancer given presentation. Will attempt gi decompression with endoscopy may need exploration and diversion if gi unable to decompress discussed in detail with patient Attestation The exam, history, and the medical decision-making described in the above note were completed with the assistance of the mid-level provider. I reviewed and agree with the findings presented. I attest that I had a [id number] encounter with the patient on the same day, and personally performed and documented my assessment and findings in the medical record. Nikki Light Feb 15, 2017 16:39 Ean Martines MD Feb 25, 2017 20:13
[2017-02-15] MEDS ORDERED: BUPIVACAINE/EPINEPHRINE 0.5% PF 30 ML VIAL ONE (16:42)
[2017-02-15] MEDS ORDERED: THROMBIN (TOPICAL) 5,000 UNIT VIAL ONE (16:42)
[2017-02-15] MEDS ORDERED: GELATIN POWDER 1 GM PACKET ONE (16:43)
[2017-02-15] MEDS ORDERED: ACETAMINOPHEN 1000 MG/100 ML VIAL IV ONE (17:02)
[2017-02-15] MEDS ORDERED: fentaNYL CITRATE 250 MCG/5 ML AMP ONE ×2 (17:02→17:04)
[2017-02-15] MEDS ORDERED: SUGAMMADEX SODIUM 200 MG/2 ML VIAL IV PUSH ONE ×2 (17:03)
[2017-02-15] MEDS ORDERED: HYDROmorphone HCL PF 2 MG/ML VIAL ONE (17:03)
[2017-02-15] MEDS ORDERED: MIDAZOLAM HCL 2 MG/2 ML VIAL ONE ×2 (17:19→22:15)
--- NOTE | 2017-02-15 17:56 | HHI.PR ---
Immediate Post Op Note Procedure Date: Feb 15, 2017 Pre Op Diagnosis: large bowel obstruction Post Op Diagnosis: same Surgeon: Ean Martines MD Boat Captain(s): Dr. Arboleda Procedure: ex lap, resection of sigmoid hemicolectomy en block with bladder, and parital colon side wall, placement of ureteral stents with primary bladder repair, primary colon repair, hartmanns procedure end colostomy Findings: colonic obstruction Complications: none Specimen(s) removed: left colon Estimated blood loss: 150 Anesthesia: General Drains: None IVF (4000) Patient to: PACU Patient Condition: Good Ean Martines MD Feb 15, 2017 17:56
[2017-02-15] MEDS ORDERED: metroNIDAZOLE 500 MG INJ 100 ML IV ONE (17:59)
[2017-02-15] MEDS ORDERED: CLINDAMYCIN PHOS 600 MG/4 ML VIAL ONE (17:59)
[2017-02-15] MEDS ORDERED: METHYLENE BLUE 10 MG/ML VIAL IV ONE (19:00)
[2017-02-15] MEDS ORDERED: MORPHINE SULFATE 30 MG/30 ML PCA IV SCH (22:45)
[2017-02-15] MEDS ORDERED: PCA - TOTAL MG MORPHINE DELIVERED PER SHIFT SCH (22:45)
[2017-02-15] MEDS ORDERED: Post-op Orders (for Pharmacy) MISC XX ONE (23:00)
[2017-02-15] MEDS: SODIUM CHLORIDE 0.9% FLUSH 10 ML FLUSH IV FLUSH SCH (23:00)
[2017-02-15] MEDS ORDERED: *morphine SULFATE 8 MG/ML PERIprocedure ONLY ONE (23:06)
[2017-02-15 23:21] LABS: BASOPHIL % 0.1 % (0.0-2.0); HEMATOCRIT 33.3 % (35.0-46.0); HEMO FLAGS DIFF FINAL; LYMPH % 5.4 % (9.0-44.0); LYMPHOCYTE # 0.4 TH/MM3 (1.0-4.8); MEAN CELL VOLUME 79.6 FL (80.0-100.0); MEAN CORPUSCULAR HEMOGLOBIN 25.1 PG (27.0-34.0); MEAN CORPUSCULAR HGB CONC 31.6 % (32.0-36.0); NEUT % 88.5 % (16.0-70.0); PLATELET COUNT 386 TH/MM3 (150-450); RED BLOOD COUNT 4.18 MIL/MM3 (4.00-5.30); RED CELL DISTRIBUTION WIDTH 16.3 % (11.6-17.2); WHITE BLOOD COUNT 6.8 TH/MM3 (4.0-11.0)
[2017-02-15 23:34] LABS: BICARBONATE 23.8 MEQ/L (21.0-32.0); POTASSIUM 3.9 MEQ/L (3.5-5.1)
[2017-02-15 23:55] LABS: CALCIUM-PROTEIN CORRECTED 7.9 MG/DL (8.5-10.1)
[2017-02-16] VITALS (14 sets, daily range): BP systolic 126–165; BP diastolic 60–69; PULSE 105–134; RESP 10–23; TEMP 97.7–99.1; O2SAT 94–100
[2017-02-16] MEDS ORDERED: HYDROmorphone HCL PF 1 MG/ML VIAL IV SCH
[2017-02-16] MEDS: CLINDAMYCIN INJ 600 MG in SODIUM CHLORIDE 0.9% INJ 50 ML IV SCH ×3 (00:01→14:42)
[2017-02-16] MEDS ORDERED: *morphine SULFATE 8 MG/ML PERIprocedure ONLY ONE (00:40)
[2017-02-16] MEDS: metroNIDAZOLE 500 MG INJ 100 ML IV SCH ×3 (00:58→16:11)
[2017-02-16] MEDS: HYDROmorphone HCL PCA 6 MG/30 ML IV SCH ×4 (01:09→19:50)
[2017-02-16] MEDS ORDERED: NALOXONE HCL 0.4 MG/ML AMP IV PRN (01:15)
[2017-02-16] MEDS ORDERED: diphenhydrAMINE HCL 50 MG/ML VIAL IV PUSH PRN (01:15)
[2017-02-16] MEDS ORDERED: diphenhydrAMINE HCL 25 MG CAP PO PRN (01:15)
[2017-02-16 04:32] LABS: AUTOMATED NEUTROPHIL # 9.7 TH/MM3 (1.8-7.7); BASOPHIL % 0.2 % (0.0-2.0); HEMO FLAGS DIFF FINAL; LYMPH % 5.1 % (9.0-44.0); LYMPHOCYTE # 0.6 TH/MM3 (1.0-4.8); MEAN CELL VOLUME 80.8 FL (80.0-100.0); MEAN CORPUSCULAR HEMOGLOBIN 24.9 PG (27.0-34.0); MEAN CORPUSCULAR HGB CONC 30.8 % (32.0-36.0); MONO % 9.8 % (0.0-8.0); NEUT % 84.9 % (16.0-70.0); PLATELET COUNT 417 TH/MM3 (150-450); RED BLOOD COUNT 4.33 MIL/MM3 (4.00-5.30); WHITE BLOOD COUNT 11.4 TH/MM3 (4.0-11.0)
[2017-02-16 05:29] LABS: BICARBONATE 23.9 MEQ/L (21.0-32.0)
[2017-02-16] MEDS: PCA - TOTAL MG DILAUDID DELIVERED PER SHIFT SCH ×3 (06:00→22:00)
[2017-02-16 06:01] LABS: CALCIUM-PROTEIN CORRECTED 8.1 MG/DL (8.5-10.1)
--- NOTE | 2017-02-16 07:27 | HHI.PR ---
Subjective Subjective Notes significant pain overnight, better with air export coordinator, good uop, no nausea Objective Vitals/I&O Vital Signs Date Time Temp Pulse Resp B/P Pulse Ox O2 Delivery O2 Flow Rate FiO2 02/16/17 06:39 10 02/16/17 06:00 114 02/16/17 04:00 97.7 138/69 96 02/15/17 23:30 Nasal Cannula 2 Labs Laboratory Tests Test 02/15/17 02/15/17 02/16/17 02/16/17 10:53 23:05 00:36 03:18 Carcinoembryonic Antigen 22.9 CA 19-9 Antigen 169.2 White Blood Count 6.8 11.4 Red Blood Count 4.18 4.33 Hemoglobin 10.5 10.8 Hematocrit 33.3 35.0 Mean Corpuscular Volume 79.6 80.8 Mean Corpuscular Hemoglobin 25.1 24.9 Mean Corpuscular Hemoglobin 31.6 30.8 Concent Red Cell Distribution Width 16.3 16.0 Platelet Count 386 417 Mean Platelet Volume 9.0 9.6 Neutrophils (%) (Auto) 88.5 84.9 Lymphocytes (%) (Auto) 5.4 5.1 Monocytes (%) (Auto) 6.0 9.8 Eosinophils (%) (Auto) 0.0 0.0 Basophils (%) (Auto) 0.1 0.2 Neutrophils # (Auto) 6.0 9.7 Lymphocytes # (Auto) 0.4 0.6 Monocytes # (Auto) 0.4 1.1 Eosinophils # (Auto) 0.0 0.0 Basophils # (Auto) 0.0 0.0 CBC Comment DIFF FINAL DIFF FINAL Differential Comment Sodium Level 142 140 Potassium Level 3.9 4.0 Chloride Level 109 108 Carbon Dioxide Level 23.8 23.9 Anion Gap 9 8 Blood Urea Nitrogen 11 10 Creatinine 0.65 0.66 Estimat Glomerular Filtration 95 93 Rate Random Glucose 172 142 Calcium Level 7.2 7.4 Protein Corrected Calcium 7.9 8.1 Total Protein 5.8 5.9 Nasal Screen MRSA (PCR) MRSA NOT DETECTED Date/Time Procedure Status Source Growth 02/15/17 02:25 Urine Culture Received Urine Random Urine Pending Radiology Last 48 hours Impressions Abdomen/Pelvis CT 02/15/17 0026 Signed Impressions: Service Date/Time: Wednesday, February 15, 2017 01:18 - CONCLUSION: 1. Air and fluid distention of the small bowel and colon with a discrete transition in the region of the sigmoid. Distal sigmoid and rectum are normal in caliber. 2. At the transition point, there is focal restriction of the bowel lumen with increased density. Findings could represent carcinoma. Sigmoidoscopy is recommended for further evaluation. No regional adenopathy or distant metastatic disease identified. 3. Retroverted uterus. Félix Andujar MD Chest X-Ray 02/15/17 0000 Signed Impressions: Service Date/Time: Wednesday, February 15, 2017 15:40 - CONCLUSION: 1. No acute cardiopulmonary disease. Chris López MD Abdomen X-Ray 02/15/17 0000 Signed Impressions: Service Date/Time: Wednesday, February 15, 2017 08:59 - CONCLUSION: 1. Nonspecific bowel gas pattern 2. Focal prominent dilatation of the colon which appears to be secondary to a mass in the sigmoid colon suspicious for colon cancer as noted on the recent CT scan of the abdomen and pelvis.. Avery North MD Cardiovascular: Regular Lungs: Clear Abdomen: Other (soft incisional tenderness, xochitl serosang, ostomy pink viable scant stool) A/P Assessment and Plan 56 year old female with bowel obstruction with sigmoid colon tumor 20cm from verg, invasion to bladder, and cecum s/p resection en block, bladder repair ureteral stents, colostomy POD 1 PLAN oob to chair later today if able air export coordinator for pain control remove ng later this afternoon IS, deep breathing will consult oncology saturday dvt ppx start lovenox tomorrow SKAGGS keep for 2 weeks due to bladder repair Ean Martines MD Feb 16, 2017 07:27
--- NOTE | 2017-02-16 08:06 | HHI.PR ---
Subjective Remarks This is a pleasant 56 y/o Female with Hypertension Epigastric pain on admission for the last five days, associated Nausea and vomit, had small BM and passing gas, seen by General specialist managers, recommended to be Nothing by mouth, NGT to low suction, With Diagnosis of Large Bowel Obstruction with sigmoid Colon Tumor 20 cm Verg, invasion to the Urinary Bladder and Cecum, performed Exploratory laparotomy, resection of Sigmoid hemicolectomy en Block with bladder and partial colon side wall, placement of ureteral stents with primary bladder repair, primary colon repair, Krueger's Procedure End Colostomy 02/15/17. plan today to remove NG tube later today, early ambulation. to consult lean manufacturing specialist for next Saturday02/18/17. keep Araya cath for two weeks. STERILE PROC TECH for pain control. seen in her bedroom in the presence of her also discussed with nurse Maria Eugenia, now her Colostomy is working. at this time in pain, continue STERILE PROC TECH pump. Objective Vital Signs Date Time Temp Pulse Resp B/P Pulse Ox O2 Delivery O2 Flow Rate FiO2 02/16/17 06:39 10 02/16/17 06:00 114 02/16/17 06:00 10 02/16/17 04:00 113 02/16/17 04:00 97.7 113 10 138/69 96 02/16/17 02:00 105 02/16/17 02:00 19 02/16/17 01:09 13 02/16/17 00:43 12 02/16/17 00:43 11 02/16/17 00:04 12 02/16/17 00:00 97.7 109 12 165/69 100 02/16/17 00:00 109 02/15/17 23:30 103 8 140/62 100 Nasal Cannula 2 02/15/17 23:15 103 7 142/66 100 Nasal Cannula 2 02/15/17 23:00 97.5 102 10 130/62 100 Nasal Cannula 2 02/15/17 22:45 104 11 133/64 100 Nasal Cannula 2 02/15/17 22:30 105 9 132/74 100 Nasal Cannula 2 02/15/17 22:15 109 11 130/61 99 Nasal Cannula 3 02/15/17 22:03 97.8 112 12 130/77 100 Nasal Cannula 3 02/15/17 17:01 98.1 115 20 143/68 97 02/15/17 14:10 110 20 103/51 96 Room Air 02/15/17 14:00 110 17 120/52 97 Room Air 02/15/17 13:55 98.5 117 17 114/57 100 Room Air 02/15/17 12:00 98.8 106 16 140/65 97 I/O 02/15/17 02/15/17 02/15/17 02/16/17 02/16/17 02/16/17 07:00 15:00 23:00 07:00 15:00 23:00 Intake Total 0 ml 1444 ml 5000 ml 544 ml Output Total 200 ml 830 ml 550 ml Balance -200 ml 1444 ml 4170 ml -6 ml Intake Oral 0 ml 0 ml 0 ml IV Total 1044 ml 1000 ml 544 ml Other 400 ml 4000 ml Output Urine Total 130 ml 450 ml Gastric Drainage Total 200 ml 300 ml 10 ml Drainage Total 50 ml 90 ml Estimated Blood Loss 150 ml Other 200 ml # Voids 0 # Bowel Movements 0 0 Result Diagram: 02/16/178 02/16/178 Imaging Last Impressions Abdomen/Pelvis CT 02/15/17 0026 Signed Impressions: Service Date/Time: Wednesday, February 15, 2017 01:18 - CONCLUSION: 1. Air and fluid distention of the small bowel and colon with a discrete transition in the region of the sigmoid. Distal sigmoid and rectum are normal in caliber. 2. At the transition point, there is focal restriction of the bowel lumen with increased density. Findings could represent carcinoma. Sigmoidoscopy is recommended for further evaluation. No regional adenopathy or distant metastatic disease identified. 3. Retroverted uterus. Félix Andujar MD Chest X-Ray 02/15/17 0000 Signed Impressions: Service Date/Time: Wednesday, February 15, 2017 15:40 - CONCLUSION: 1. No acute cardiopulmonary disease. Chris López MD Abdomen X-Ray 02/15/17 0000 Signed Impressions: Service Date/Time: Wednesday, February 15, 2017 08:59 - CONCLUSION: 1. Nonspecific bowel gas pattern 2. Focal prominent dilatation of the colon which appears to be secondary to a mass in the sigmoid colon suspicious for colon cancer as noted on the recent CT scan of the abdomen and pelvis.. 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, invasion to the Urinary Bladder and Cecum, performed Exploratory laparotomy, resection of Sigmoid hemicolectomy en Block with bladder and partial colon side wall, placement of ureteral stents with primary bladder repair, primary colon repair, Krueger's Procedure End Colostomy 02/15/17 Other Results Laboratory Tests Test 02/15/17 02/15/17 02/15/17 02/16/17 00:25 02:25 10:53 00:36 Prothrombin Time 10.7 SEC Prothromb Time International 1.0 RATIO Ratio Activated Partial 25.7 SEC Thromboplast Time Lactic Acid Level 0.8 mmol/L Total Bilirubin 0.4 MG/DL Direct Bilirubin 0.1 MG/DL Indirect Bilirubin 0.3 MG/DL Aspartate Amino Transf 15 U/L (AST/SGOT) Alanine Aminotransferase 17 U/L (ALT/SGPT) Alkaline Phosphatase 95 U/L Troponin I LESS THAN 0.02 NG/ML Albumin 3.5 GM/DL Lipase 103 U/L Urine Color YELLOW Urine Turbidity HAZY Urine pH 6.0 Urine Specific [place] GREATER THAN 1.050 Urine Protein 30 mg/dL Urine Glucose (UA) NEG mg/dL Urine Ketones 150 mg/dL Urine Occult Blood LARGE Urine Nitrite NEG Urine Bilirubin SMALL Urine Urobilinogen LESS THAN 2.0 MG/DL Urine Leukocyte Esterase MOD Urine RBC /hpf Urine WBC /hpf Urine Squamous Epithelial 1 /hpf Cells Urine Hyaline Casts 20 /lpf Urine Granular Casts 4 /lpf Urine Waxy Casts 12 /lpf Urine Mucus FEW /lpf Urine Yeast (Budding) FEW Microscopic Urinalysis Comment CULTURE INDICATED Carcinoembryonic Antigen 22.9 NG/ML CA 19-9 Antigen 169.2 U/ML Nasal Screen MRSA (PCR) MRSA NOT DETECTED Test 02/16/17 03:18 White Blood Count 11.4 TH/MM3 Red Blood Count 4.33 MIL/MM3 Hemoglobin 10.8 GM/DL Hematocrit 35.0 % Mean Corpuscular Volume 80.8 FL Mean Corpuscular Hemoglobin 24.9 PG Mean Corpuscular Hemoglobin 30.8 % Concent Red Cell Distribution Width 16.0 % Platelet Count 417 TH/MM3 Mean Platelet Volume 9.6 FL Neutrophils (%) (Auto) 84.9 % Lymphocytes (%) (Auto) 5.1 % Monocytes (%) (Auto) 9.8 % Eosinophils (%) (Auto) 0.0 % Basophils (%) (Auto) 0.2 % Neutrophils # (Auto) 9.7 TH/MM3 Lymphocytes # (Auto) 0.6 TH/MM3 Monocytes # (Auto) 1.1 TH/MM3 Eosinophils # (Auto) 0.0 TH/MM3 Basophils # (Auto) 0.0 TH/MM3 CBC Comment DIFF FINAL Differential Comment Sodium Level 140 MEQ/L Potassium Level 4.0 MEQ/L Chloride Level 108 MEQ/L Carbon Dioxide Level 23.9 MEQ/L Anion Gap 8 MEQ/L Blood Urea Nitrogen 10 MG/DL Creatinine 0.66 MG/DL Estimat Glomerular Filtration 93 ML/MIN Rate Random Glucose 142 MG/DL Calcium Level 7.4 MG/DL Protein Corrected Calcium 8.1 MG/DL Total Protein 5.9 GM/DL Objective Remarks GENERAL: Obese, in no apparent distress. SKIN: No rashes, ecchymoses or lesions. Cool and dry. HEAD: Atraumatic. Normocephalic. EYES: Pupils equal round and reactive. Extraocular motions intact. ENT: Nose without bleeding, purulent drainage or septal hematoma. NECK: Trachea midline. No JVD or lymphadenopathy. CARDIOVASCULAR: Regular rate and rhythm without murmurs, gallops, or rubs. RESPIRATORY: Clear to auscultation. Breath sounds equal bilaterally. No wheezes , rales, or rhonchi. GASTROINTESTINAL: Abdomen soft, epigastric tenderness, nondistended. hypoactive BS MUSCULOSKELETAL: Extremities without clubbing, cyanosis, or edema. No joint tenderness, effusion, or edema noted. No calf tenderness. NEUROLOGICAL: Awake and alert. Motor and sensory grossly within normal limits.. Normal speech. Medications and IVs Current Medications Medications (Trade) Dose Ordered Sig/Jose E Route Start Time Stop Time Status Last Admin (NS 1000 ml Inj) 1,000 ml @ 100 mls/hr Q10H IV 02/15/17 02:49 02/15/17 22:45 (Zofran Inj) 4 mg Q4H PRN IVP 02/15/17 11:00 02/15/17 15:53 (Phenergan Inj) 25 mg Q6H PRN IM 02/15/17 08:45 02/15/17 11:43 Miscellaneous Information ALL NURSING DEPARTME... UNSCH PRN .XX 02/15/17 22:00 02/16/17 21:59 (NS Flush) 2 ml UNSCH PRN IV FLUSH 02/15/17 23:00 Sodium Chloride 2 ml 2 ml BID IV FLUSH 02/15/17 23:00 Metronidazole 100 ml @ 200 mls/hr Q8H IV 02/16/17 00:00 02/16/17 16:29 02/16/17 00:58 (Cleocin Inj/NS Inj) 54 ml @ 108 mls/hr Q8H IV 02/15/17 23:00 02/16/17 15:29 02/16/17 00:01 (Dilaudid STERILE PROC TECH Inj) 6 mg UNSCH IV 02/16/17 01:15 02/16/17 06:39 STERILE PROC TECH Dosage Infused (Pha) 1 Q8HR .XX 02/16/17 06:00 02/16/17 06:00 (Narcan Inj) 0.4 mg UNSCH PRN IV 02/16/17 01:15 (Benadryl) 25 mg Q6H PRN PO 02/16/17 01:15 (Benadryl Inj) 25 mg Q6H PRN IV PUSH 02/16/17 01:15 A/P Assessment and Plan 56 y/o female with a history of HTN came to the ED with complaints of epigastric pain since Saturday, that continues to worsen with associated nausea and vomiting 2-3 times a day. 1. 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 - Consult lean manufacturing specialist for 02/18/17 - Keep Araya cath for two weeks, making 40 to 50 ml of urine per hour - follow laboratory on daily basis - Continue Pain medicine - NGT in place planned to remove it later today. - GI specialist and General Surgery following Leukocytosis, WBC 12.3, likely source is bowel, questionable UTI, asymptomatic previous to this episode. HTN, chronic, controlled. Obesity strongly recommended diet and exercise as outpatient. Hypocalcemia mild replaced. DVT prophylaxis: SCDs Discharge Planning Once cleared by Specialists. Sergio Hammonds MD Feb 16, 2017 08:06
[2017-02-16] MEDS ORDERED: CALCIUM GLUCONATE INJ 1 GM in DEXTROSE 5% IN WATER 100ML INJ 100 ML IV ONE ×2 (08:15)
[2017-02-16] MEDS: SODIUM CHLOR 0.9% 1000 ML INJ 1,000 ML IV SCH ×2 (10:14→19:49)
[2017-02-16] MEDS: SODIUM CHLORIDE 0.9% FLUSH 10 ML FLUSH IV FLUSH SCH ×2 (10:22→20:25)
[2017-02-16] MEDS ORDERED: BENZOCAINE 6 MG/MENTHOL 10 MG LOZENGE BUCCAL PRN (16:30)
--- NOTE | 2017-02-16 20:01 | MR ---
cc: ROSALIO NAM JR., MD DATE: 02/15/2017. PROCEDURE PERFORMED: Flexible sigmoidoscopy with biopsy. REFERRING PHYSICIAN: Dr. Higinio Hensley. ENDOSCOPIST: Rosalio Nam MD. INDICATIONS FOR THE PROCEDURE: Colonic obstruction with apparent mass in the sigmoid colon. DESCRIPTION OF THE PROCEDURE IN DETAIL: After informed consent was obtained the patient was placed in the supine position. She was given general endotracheal anesthesia. After adequate sedation was achieved, she was turned onto her left side. A digital rectal examination was normal. The Pentax video gastroscope was inserted in the anal canal and advanced up through the rectum reaching about 20 cm. At that level, there was a sharp angulation and a tumor was filling the lumen. I was unable to find an opening to get the scope to pass through. The tumor was quite friable. Multiple biopsies were obtained from the soft tissue that was very friable. There was a firmness deep and attempts were made to get a deep biopsy. The scope was then withdrawn examining carefully. A retroflexed exam was performed in the rectum. The scope was then straightened and pulled through the anal canal and the procedure was terminated. She tolerated the procedure well and was returned to the recovery area in good condition. FINDINGS: 1. There was a tumor located at 18 to 20 cm from the anal verge placing it in the distal sigmoid colon. I could not assess the size of the tumor because I could not get the scope to pass through. Multiple biopsies were taken. 2. The rectum was normal with no other polypoid lesions seen. IMPRESSION: 1. Sigmoid colon cancer with bowel obstruction. Biopsies were taken. 2. Colon obstruction. RECOMMENDATIONS: Proceed with surgery. Rosalio Nam MD [facility] /2:07 PM /7:58 PM
[2017-02-16] MEDS ORDERED: METOPROLOL TARTRATE 5 MG/5 ML VIAL IV PUSH ONE (20:30)
[2017-02-17] VITALS (12 sets, daily range): BP systolic 118–137; BP diastolic 56–60; PULSE 108–133; RESP 11–29; TEMP 98.8–100.2; O2SAT 92–99
[2017-02-17] MEDS: HYDROmorphone HCL PCA 6 MG/30 ML IV SCH ×3 (03:42→18:00)
[2017-02-17 04:30] LABS: AUTOMATED NEUTROPHIL # 16.8 TH/MM3 (1.8-7.7); BASOPHIL # 0.1 TH/MM3 (0-0.2); BASOPHIL % 0.3 % (0.0-2.0); EOSINOPHIL % 0.2 % (0.0-4.0); HEMATOCRIT 31.5 % (35.0-46.0); LYMPH % 5.8 % (9.0-44.0); LYMPHOCYTE # 1.1 TH/MM3 (1.0-4.8); MEAN CELL VOLUME 79.8 FL (80.0-100.0); MEAN CORPUSCULAR HEMOGLOBIN 24.9 PG (27.0-34.0); MEAN CORPUSCULAR HGB CONC 31.2 % (32.0-36.0); MONO % 8.5 % (0.0-8.0); NEUT % 85.2 % (16.0-70.0); PLATELET COUNT 311 TH/MM3 (150-450); RED BLOOD COUNT 3.95 MIL/MM3 (4.00-5.30); RED CELL DISTRIBUTION WIDTH 16.1 % (11.6-17.2); WHITE BLOOD COUNT 19.7 TH/MM3 (4.0-11.0)
[2017-02-17 04:32] LABS: HEMO FLAGS AUTO DIFF
[2017-02-17 05:05] LABS: ALKALINE PHOSPHATASE 77 U/L (45-117); ALT (GPT) 15 U/L (10-53); ANION GAP 10 MEQ/L (5-15); AST (GOT) 27 U/L (15-37); BICARBONATE 18.9 MEQ/L (21.0-32.0); CHLORIDE 111 MEQ/L (98-107); GLOMERULAR FILTRATION RATE 98 ML/MIN (>89); MAGNESIUM 1.8 MG/DL (1.5-2.5); POTASSIUM 4.2 MEQ/L (3.5-5.1); SODIUM (NA) 140 MEQ/L (136-145); TOTAL BILIRUBIN ADULT 0.2 MG/DL (0.2-1.0)
[2017-02-17 05:07] LABS: BLOOD UREA NITROGEN 11 MG/DL (7-18)
[2017-02-17] MEDS: SODIUM CHLOR 0.9% 1000 ML INJ 1,000 ML IV SCH ×3 (05:08→22:08)
[2017-02-17 05:22] LABS: SCAN/DIFF AUTO DIFF CONFIRMED
[2017-02-17] MEDS: PCA - TOTAL MG DILAUDID DELIVERED PER SHIFT SCH ×3 (06:00→21:42)
[2017-02-17] MEDS: SODIUM CHLORIDE 0.9% FLUSH 10 ML FLUSH IV FLUSH SCH ×2 (09:00→20:18)
[2017-02-17] MEDS: metroNIDAZOLE 500 MG INJ 100 ML IV SCH ×2 (11:07→18:17)
[2017-02-17] MEDS ORDERED: SODIUM CHLORID 0.9% 500 ML INJ 500 ML IV ONE (11:15)
--- NOTE | 2017-02-17 11:44 | HHI.PR ---
Subjective Remarks This is a pleasant 56 y/o Female with Hypertension Epigastric pain on admission for the last five days, associated Nausea and vomit, had small BM and passing gas, seen by General early intervention specialist, recommended to be Nothing by mouth, NGT to low suction, With Diagnosis of Large Bowel Obstruction with sigmoid Colon Tumor 20 cm Verg, invasion to the Urinary Bladder and Cecum, performed Exploratory laparotomy, resection of Sigmoid hemicolectomy en Block with bladder and partial colon side wall, placement of ureteral stents with primary bladder repair, primary colon repair, Krueger's Procedure End Colostomy 02/15/17. plan today to remove NG tube later today, early ambulation. to consult early intervention specialist for next Saturday02/18/17. keep Araya cath for two weeks. BRAZER CRAWLER TORCH for pain control. seen in her bedroom in the presence of her also discussed with nurse Miss Del Cid, now her Colostomy is working. at this time in pain, continue BRAZER CRAWLER TORCH pump. 02/17: Seen in the presence of her and discussed with nurse Miss Sunshine manrique, states she is in pain, and lost her IV peripheral line, asked for Vascular team for another line. no nausea, vomit or diarrhea. was dehydrated in am and corrected by General design specialist. Objective Vital Signs Date Time Temp Pulse Resp B/P Pulse Ox O2 Delivery O2 Flow Rate FiO2 02/17/17 10:33 16 02/17/17 06:00 124 02/17/17 06:00 23 02/17/17 04:13 22 02/17/17 04:00 99.2 117 11 122/57 99 02/17/17 04:00 117 02/17/17 03:42 15 02/17/17 02:00 108 02/17/17 00:00 110 02/17/17 00:00 100.2 120 14 119/60 98 02/16/17 22:00 110 02/16/17 22:00 13 02/16/17 20:02 100 21 02/16/17 20:00 99.1 134 23 141/67 94 02/16/17 20:00 134 02/16/17 19:50 23 02/16/17 19:00 100 Room Air 02/16/17 18:00 124 02/16/17 16:00 98.4 123 23 126/60 100 02/16/17 16:00 123 02/16/17 14:00 109 02/16/17 14:00 18 02/16/17 13:22 11 02/16/17 12:00 98.1 110 21 132/63 100 02/16/17 12:00 112 I/O 02/16/17 02/16/17 02/16/17 02/17/17 02/17/17 02/17/17 07:00 15:00 23:00 07:00 15:00 23:00 Intake Total 544 ml 873 ml 1083 ml 1354 ml Output Total 550 ml 383 ml 620 ml 855 ml Balance -6 ml 490 ml 463 ml 499 ml Intake Oral 0 ml 30 ml 240 ml 480 ml IV Total 544 ml 843 ml 843 ml 874 ml Output Urine Total 450 ml 210 ml 350 ml 350 ml Stool Total 100 ml 250 ml 500 ml Gastric Drainage Total 10 ml 10 ml Drainage Total 90 ml 63 ml 20 ml 5 ml # Bowel Movements 0 # Sanitary Pads 1 Pads 1 Pads Result Diagram: 02/17/1731602/17/17316 Imaging Last Impressions Abdomen/Pelvis CT 02/15/17 0026 Signed Impressions: Service Date/Time: Wednesday, February 15, 2017 01:18 - CONCLUSION: 1. Air and fluid distention of the small bowel and colon with a discrete transition in the region of the sigmoid. Distal sigmoid and rectum are normal in caliber. 2. At the transition point, there is focal restriction of the bowel lumen with increased density. Findings could represent carcinoma. Sigmoidoscopy is recommended for further evaluation. No regional adenopathy or distant metastatic disease identified. 3. Retroverted uterus. Félix Andujar MD Chest X-Ray 02/15/17 0000 Signed Impressions: Service Date/Time: Wednesday, February 15, 2017 15:40 - CONCLUSION: 1. No acute cardiopulmonary disease. Chris López MD Abdomen X-Ray 02/15/17 0000 Signed Impressions: Service Date/Time: Wednesday, February 15, 2017 08:59 - CONCLUSION: 1. Nonspecific bowel gas pattern 2. Focal prominent dilatation of the colon which appears to be secondary to a mass in the sigmoid colon suspicious for colon cancer as noted on the recent CT scan of the abdomen and pelvis.. 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, invasion to the Urinary Bladder and Cecum, performed Exploratory laparotomy, resection of Sigmoid hemicolectomy en Block with bladder and partial colon side wall, placement of ureteral stents with primary bladder repair, primary colon repair, Krueger's Procedure End Colostomy 02/15/17 Other Results Laboratory Tests Test 02/15/17 02/15/17 02/15/17 02/16/17 00:25 02:25 10:53 00:36 Prothrombin Time 10.7 SEC Prothromb Time International 1.0 RATIO Ratio Activated Partial 25.7 SEC Thromboplast Time Lactic Acid Level 0.8 mmol/L Direct Bilirubin 0.1 MG/DL Indirect Bilirubin 0.3 MG/DL Troponin I LESS THAN 0.02 NG/ML Lipase 103 U/L Urine Color YELLOW Urine Turbidity HAZY Urine pH 6.0 Urine Specific [place] GREATER THAN 1.050 Urine Protein 30 mg/dL Urine Glucose (UA) NEG mg/dL Urine Ketones 150 mg/dL Urine Occult Blood LARGE Urine Nitrite NEG Urine Bilirubin SMALL Urine Urobilinogen LESS THAN 2.0 MG/DL Urine Leukocyte Esterase MOD Urine RBC /hpf Urine WBC /hpf Urine Squamous Epithelial 1 /hpf Cells Urine Hyaline Casts 20 /lpf Urine Granular Casts 4 /lpf Urine Waxy Casts 12 /lpf Urine Mucus FEW /lpf Urine Yeast (Budding) FEW Microscopic Urinalysis Comment CULTURE INDICATED Carcinoembryonic Antigen 22.9 NG/ML CA 19-9 Antigen 169.2 U/ML Nasal Screen MRSA (PCR) MRSA NOT DETECTED Test 02/16/17 02/17/17 03:18 03:17 Protein Corrected Calcium 8.1 MG/DL White Blood Count 19.7 TH/MM3 Red Blood Count 3.95 MIL/MM3 Hemoglobin 9.8 GM/DL Hematocrit 31.5 % Mean Corpuscular Volume 79.8 FL Mean Corpuscular Hemoglobin 24.9 PG Mean Corpuscular Hemoglobin 31.2 % Concent Red Cell Distribution Width 16.1 % Platelet Count 311 TH/MM3 Mean Platelet Volume 10.0 FL Neutrophils (%) (Auto) 85.2 % Lymphocytes (%) (Auto) 5.8 % Monocytes (%) (Auto) 8.5 % Eosinophils (%) (Auto) 0.2 % Basophils (%) (Auto) 0.3 % Neutrophils # (Auto) 16.8 TH/MM3 Lymphocytes # (Auto) 1.1 TH/MM3 Monocytes # (Auto) 1.7 TH/MM3 Eosinophils # (Auto) 0.0 TH/MM3 Basophils # (Auto) 0.1 TH/MM3 CBC Comment AUTO DIFF Differential Comment AUTO DIFF CONFIRMED Hematology Comments * Sodium Level 140 MEQ/L Potassium Level 4.2 MEQ/L Chloride Level 111 MEQ/L Carbon Dioxide Level 18.9 MEQ/L Anion Gap 10 MEQ/L Blood Urea Nitrogen 11 MG/DL Creatinine 0.63 MG/DL Estimat Glomerular Filtration 98 ML/MIN Rate Random Glucose 109 MG/DL Calcium Level 7.9 MG/DL Phosphorus Level 2.1 MG/DL Magnesium Level 1.8 MG/DL Total Bilirubin 0.2 MG/DL Aspartate Amino Transf 27 U/L (AST/SGOT) Alanine Aminotransferase 15 U/L (ALT/SGPT) Alkaline Phosphatase 77 U/L Total Protein 5.8 GM/DL Albumin 2.2 GM/DL Objective Remarks GENERAL: Obese, in no apparent distress. SKIN: No rashes, ecchymoses or lesions. Cool and dry. HEAD: Atraumatic. Normocephalic. EYES: Pupils equal round and reactive. Extraocular motions intact. ENT: Nose without bleeding, purulent drainage or septal hematoma. NECK: Trachea midline. No JVD or lymphadenopathy. CARDIOVASCULAR: Regular rate and rhythm without murmurs, gallops, or rubs. RESPIRATORY: Clear to auscultation. Breath sounds equal bilaterally. No wheezes , rales, or rhonchi. GASTROINTESTINAL: Abdomen soft, Ostomy in place, dressed surgical wound. MUSCULOSKELETAL: Extremities without clubbing, cyanosis, or edema. NEUROLOGICAL: Awake and alert. Motor and sensory grossly within normal limits.. Normal speech. Medications and IVs Current Medications Medications (Trade) Dose Ordered Sig/Jose E Route Start Time Stop Time Status Last Admin (NS 1000 ml Inj) 1,000 ml @ 125 mls/hr Q8H IV 02/15/17 02:49 02/17/17 05:08 (Zofran Inj) 4 mg Q4H PRN IVP 02/15/17 11:00 02/15/17 15:53 (Phenergan Inj) 25 mg Q6H PRN IM 02/15/17 08:45 02/15/17 11:43 (NS Flush) 2 ml UNSCH PRN IV FLUSH 02/15/17 23:00 (NS Flush) 2 ml BID IV FLUSH 02/15/17 23:00 02/16/17 20:25 (Dilaudid BRAZER CRAWLER TORCH Inj) 6 mg UNSCH IV 02/16/17 01:15 02/17/17 10:33 BRAZER CRAWLER TORCH Dosage Infused (Pha) 1 Q8HR .XX 02/16/17 06:00 02/17/17 06:00 (Narcan Inj) 0.4 mg UNSCH PRN IV 02/16/17 01:15 (Benadryl) 25 mg Q6H PRN PO 02/16/17 01:15 (Benadryl Inj) 25 mg Q6H PRN IV PUSH 02/16/17 01:15 Benzocaine/ Menthol 1 lozenge 1 lozenge UNSCH PRN BUCCAL 02/16/17 16:30 02/16/17 17:29 Metronidazole 100 ml @ 100 mls/hr Q8H IV 02/17/17 11:00 02/17/17 11:07 Clindamycin Phosphate 600 mg/ Sodium Chloride 104 ml @ 208 mls/hr Q8H IV 02/17/17 12:00 (NS 500 ml Inj) 500 ml @ 500 mls/hr BOLUS ONCE IV 02/17/17 11:15 02/17/17 12:14 02/17/17 11:15 A/P Assessment and Plan 56 y/o female with a history of HTN came to the ED with complaints of epigastric pain since Saturday, that continues to worsen with associated nausea and vomiting 2-3 times a day. 1. 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 - Consult early intervention specialist for 02/18/17 - Keep Araya cath for two weeks, making 40 to 50 ml of urine per hour - follow laboratory on daily basis - Continue Pain medicine - NGT removed. - GI specialist and General Surgery following Leukocytosis, 'Worsening today 19.7. continue following and antibiotics Clindamycin and Flagyl. HTN, chronic, controlled. Obesity strongly recommended diet and exercise as outpatient. Hypocalcemia mild replaced. her Albumin level is 2.2 DVT prophylaxis: SCDs Discharge Planning Once cleared by Specialists. Sergio Hammonds MD Feb 17, 2017 11:44
[2017-02-17] MEDS: CLINDAMYCIN INJ 600 MG in SODIUM CHLORIDE 0.9% INJ 100 ML IV SCH ×2 (12:31→20:18)
[2017-02-17] MEDS: LEVOFLOXACIN 750 MG PREMIX INJ 150 ML IV SCH (15:54)
[2017-02-17] MEDS: METOPROLOL TARTRATE 5 MG/5 ML VIAL IV PUSH SCH ×2 (15:54→21:53)
[2017-02-18] VITALS (12 sets, daily range): BP systolic 115–143; BP diastolic 57–72; PULSE 103–120; RESP 13–29; TEMP 99–99.5; O2SAT 94–99
[2017-02-18] MEDS: SODIUM CHLOR 0.9% 1000 ML INJ 1,000 ML IV SCH ×3 (02:33→19:47)
[2017-02-18] MEDS: metroNIDAZOLE 500 MG INJ 100 ML IV SCH ×3 (02:34→18:12)
[2017-02-18] MEDS: HYDROmorphone HCL PCA 6 MG/30 ML IV SCH ×3 (03:52→23:21)
[2017-02-18] MEDS: CLINDAMYCIN INJ 600 MG in SODIUM CHLORIDE 0.9% INJ 100 ML IV SCH ×3 (03:52→19:47)
[2017-02-18 04:50] LABS: AUTOMATED NEUTROPHIL # 15.6 TH/MM3 (1.8-7.7); BASOPHIL % 0.2 % (0.0-2.0); EOSINOPHIL # 0.2 TH/MM3 (0-0.4); EOSINOPHIL % 0.9 % (0.0-4.0); HEMATOCRIT 27.2 % (35.0-46.0); HEMO FLAGS DIFF FINAL; LYMPHOCYTE # 1.1 TH/MM3 (1.0-4.8); MEAN CELL VOLUME 80.1 FL (80.0-100.0); MEAN CORPUSCULAR HEMOGLOBIN 25.4 PG (27.0-34.0); MEAN CORPUSCULAR HGB CONC 31.8 % (32.0-36.0); MONO % 8.6 % (0.0-8.0); NEUT % 84.3 % (16.0-70.0); PLATELET COUNT 269 TH/MM3 (150-450); RED CELL DISTRIBUTION WIDTH 16.1 % (11.6-17.2); WHITE BLOOD COUNT 18.5 TH/MM3 (4.0-11.0)
[2017-02-18 04:57] LABS: BICARBONATE 23.3 MEQ/L (21.0-32.0); CALCIUM-PROTEIN CORRECTED 8.4 MG/DL (8.5-10.1); POTASSIUM 3.9 MEQ/L (3.5-5.1); TOTAL BILIRUBIN ADULT 0.3 MG/DL (0.2-1.0)
[2017-02-18] MEDS: METOPROLOL TARTRATE 5 MG/5 ML VIAL IV PUSH SCH ×3 (10:17→22:04)
[2017-02-18] MEDS: SODIUM CHLORIDE 0.9% FLUSH 10 ML FLUSH IV FLUSH SCH ×2 (10:20→21:00)
--- NOTE | 2017-02-18 11:28 | HHI.PR ---
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 plan today to remove NG tube later today, early ambulation. to consult community support specialist for next Saturday02/18/17. keep Araya cath for two weeks. FISH ICER for pain control. seen in her bedroom in the presence of her also discussed with nurse Miss Del Cid, now her Colostomy is working. at this time in pain, continue FISH ICER pump. 02/17: Seen in the presence of her and discussed with nurse Miss Gonsalez continue, states she is in pain, and lost her IV peripheral line, asked for Vascular team for another line. no nausea, vomit or diarrhea. was dehydrated in am and corrected by General surgery nurse. 02/18: Seen in her bedroom in the presence of nurse Miss Gonsalez asking me do remove Araya Cath, I showed the Surgical Recommendations by General Surgery, The Araya Must Remain in place for 2 weeks after surgery, I left that written in the Whiteboard in the patient's room, I can see the patient has Oral Thrush was started on Nystatin swish and swallow. no nausea, vomit or diarrhea. Objective Vital Signs Date Time Temp Pulse Resp B/P Pulse Ox O2 Delivery O2 Flow Rate FiO2 02/18/17 11:11 20 02/18/17 04:00 99.5 120 18 143/65 96 02/18/17 03:52 18 02/18/17 00:00 96 Room Air 02/18/17 00:00 99.5 114 20 115/58 96 02/18/17 00:00 114 02/17/17 22:00 114 02/17/17 21:42 19 02/17/17 20:00 92 21 02/17/17 20:00 128 02/17/17 20:00 98 Room Air 02/17/17 20:00 98.8 124 20 122/56 94 02/17/17 18:00 133 02/17/17 18:00 20 02/17/17 16:00 117 02/17/17 16:00 99.9 117 29 137/57 97 02/17/17 14:00 21 02/17/17 14:00 126 02/17/17 12:00 123 02/17/17 12:00 99.6 123 13 129/60 95 I/O 02/17/17 02/17/17 02/17/17 02/18/17 02/18/17 02/18/17 07:00 15:00 23:00 07:00 15:00 23:00 Intake Total 1354 ml 1340 ml 754 ml 1246 ml Output Total 855 ml 615 ml 610 ml 725 ml Balance 499 ml 725 ml 144 ml 521 ml Intake Oral 480 ml 200 ml 100 ml 120 ml IV Total 874 ml 1140 ml 654 ml 1126 ml Output Urine Total 350 ml 475 ml 450 ml 425 ml Stool Total 500 ml 100 ml 150 ml 300 ml Drainage Total 5 ml 40 ml 10 ml 0 ml Result Diagram: 02/18/17 0334 02/18/17 0334 Imaging Last Impressions Abdomen/Pelvis CT 02/15/17 0026 Signed Impressions: Service Date/Time: Wednesday, February 15, 2017 01:18 - CONCLUSION: 1. Air and fluid distention of the small bowel and colon with a discrete transition in the region of the sigmoid. Distal sigmoid and rectum are normal in caliber. 2. At the transition point, there is focal restriction of the bowel lumen with increased density. Findings could represent carcinoma. Sigmoidoscopy is recommended for further evaluation. No regional adenopathy or distant metastatic disease identified. 3. Retroverted uterus. Félix Andujar MD Chest X-Ray 02/15/17 0000 Signed Impressions: Service Date/Time: Wednesday, February 15, 2017 15:40 - CONCLUSION: 1. No acute cardiopulmonary disease. Chris López MD Abdomen X-Ray 02/15/17 0000 Signed Impressions: Service Date/Time: Wednesday, February 15, 2017 08:59 - CONCLUSION: 1. Nonspecific bowel gas pattern 2. Focal prominent dilatation of the colon which appears to be secondary to a mass in the sigmoid colon suspicious for colon cancer as noted on the recent CT scan of the abdomen and pelvis.. 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, invasion to the Urinary Bladder and Cecum, performed Exploratory laparotomy, resection of Sigmoid hemicolectomy en Block with bladder and partial colon side wall, placement of ureteral stents with primary bladder repair, primary colon repair, Krueger's Procedure End Colostomy 02/15/17 Other Results Laboratory Tests Test 02/15/17 02/15/17 02/15/17 02/16/17 00:25 02:25 10:53 00:36 Prothrombin Time 10.7 SEC Prothromb Time International 1.0 RATIO Ratio Activated Partial 25.7 SEC Thromboplast Time Lactic Acid Level 0.8 mmol/L Direct Bilirubin 0.1 MG/DL Indirect Bilirubin 0.3 MG/DL Troponin I LESS THAN 0.02 NG/ML Lipase 103 U/L Urine Color YELLOW Urine Turbidity HAZY Urine pH 6.0 Urine Specific [place] GREATER THAN 1.050 Urine Protein 30 mg/dL Urine Glucose (UA) NEG mg/dL Urine Ketones 150 mg/dL Urine Occult Blood LARGE Urine Nitrite NEG Urine Bilirubin SMALL Urine Urobilinogen LESS THAN 2.0 MG/DL Urine Leukocyte Esterase MOD Urine RBC /hpf Urine WBC /hpf Urine Squamous Epithelial 1 /hpf Cells Urine Hyaline Casts 20 /lpf Urine Granular Casts 4 /lpf Urine Waxy Casts 12 /lpf Urine Mucus FEW /lpf Urine Yeast (Budding) FEW Microscopic Urinalysis Comment CULTURE INDICATED Carcinoembryonic Antigen 22.9 NG/ML CA 19-9 Antigen 169.2 U/ML Nasal Screen MRSA (PCR) MRSA NOT DETECTED Test 02/17/17 02/18/17 03:17 03:34 Hematology Comments * Phosphorus Level 2.1 MG/DL Magnesium Level 1.8 MG/DL White Blood Count 18.5 TH/MM3 Red Blood Count 3.40 MIL/MM3 Hemoglobin 8.7 GM/DL Hematocrit 27.2 % Mean Corpuscular Volume 80.1 FL Mean Corpuscular Hemoglobin 25.4 PG Mean Corpuscular Hemoglobin 31.8 % Concent Red Cell Distribution Width 16.1 % Platelet Count 269 TH/MM3 Mean Platelet Volume 9.0 FL Neutrophils (%) (Auto) 84.3 % Lymphocytes (%) (Auto) 6.0 % Monocytes (%) (Auto) 8.6 % Eosinophils (%) (Auto) 0.9 % Basophils (%) (Auto) 0.2 % Neutrophils # (Auto) 15.6 TH/MM3 Lymphocytes # (Auto) 1.1 TH/MM3 Monocytes # (Auto) 1.6 TH/MM3 Eosinophils # (Auto) 0.2 TH/MM3 Basophils # (Auto) 0.0 TH/MM3 CBC Comment DIFF FINAL Differential Comment Sodium Level 142 MEQ/L Potassium Level 3.9 MEQ/L Chloride Level 109 MEQ/L Carbon Dioxide Level 23.3 MEQ/L Anion Gap 10 MEQ/L Blood Urea Nitrogen 7 MG/DL Creatinine 0.46 MG/DL Estimat Glomerular Filtration 142 ML/MIN Rate Random Glucose 87 MG/DL Calcium Level 7.1 MG/DL Protein Corrected Calcium 8.4 MG/DL Total Bilirubin 0.3 MG/DL Aspartate Amino Transf 18 U/L (AST/SGOT) Alanine Aminotransferase 12 U/L (ALT/SGPT) Alkaline Phosphatase 72 U/L Total Protein 4.8 GM/DL Albumin 1.9 GM/DL Objective Remarks GENERAL: Obese, in no apparent distress. SKIN: No rashes, ecchymoses or lesions. Cool and dry. HEAD: Atraumatic. Normocephalic. EYES: Pupils equal round and reactive. Extraocular motions intact. ENT: Nose without bleeding, whitish tongue and oral mucosa. NECK: Trachea midline. No JVD or lymphadenopathy. CARDIOVASCULAR: Regular rate and rhythm without murmurs, gallops, or rubs. RESPIRATORY: Clear to auscultation. Breath sounds equal bilaterally. No wheezes , rales, or rhonchi. GASTROINTESTINAL: Abdomen soft, Ostomy in place, dressed surgical wound. GLO drain in place. MUSCULOSKELETAL: Extremities without clubbing, cyanosis, or edema. NEUROLOGICAL: Awake and alert. Motor and sensory grossly within normal limits.. Normal speech. Araya cath in place. Medications and IVs Current Medications Medications (Trade) Dose Ordered Sig/Jose E Route Start Time Stop Time Status Last Admin (NS 1000 ml Inj) 1,000 ml @ 125 mls/hr Q8H IV 02/15/17 02:49 02/18/17 02:33 (Zofran Inj) 4 mg Q4H PRN IVP 02/15/17 11:00 02/15/17 15:53 (Phenergan Inj) 25 mg Q6H PRN IM 02/15/17 08:45 02/15/17 11:43 (NS Flush) 2 ml UNSCH PRN IV FLUSH 02/15/17 23:00 (NS Flush) 2 ml BID IV FLUSH 02/15/17 23:00 02/18/17 10:20 (Dilaudid FISH ICER Inj) 6 mg UNSCH IV 02/16/17 01:15 02/18/17 11:11 FISH ICER Dosage Infused (Pha) 1 Q8HR .XX 02/16/17 06:00 02/17/17 21:42 (Narcan Inj) 0.4 mg UNSCH PRN IV 02/16/17 01:15 (Benadryl) 25 mg Q6H PRN PO 02/16/17 01:15 (Benadryl Inj) 25 mg Q6H PRN IV PUSH 02/16/17 01:15 Benzocaine/ Menthol 1 lozenge 1 lozenge UNSCH PRN BUCCAL 02/16/17 16:30 02/16/17 17:29 Metronidazole 100 ml @ 100 mls/hr Q8H IV 02/17/17 11:00 02/18/17 10:19 (Cleocin Inj/NS Inj) 104 ml @ 208 mls/hr Q8H IV 02/17/17 12:00 02/18/17 10:20 Metoprolol Tartrate 2.5 mg 2.5 mg Q6H IV PUSH 02/17/17 16:00 02/18/17 10:17 (Levaquin 750 Mg Premix Inj) 150 ml @ 100 mls/hr Q24H IV 02/17/17 16:00 02/17/17 15:54 A/P Assessment and Plan 56 y/o female with a history of HTN came to the ED with complaints of epigastric pain since Saturday, that continues to worsen with associated nausea and vomiting 2-3 times a day. 1. 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 - Consulted Medical Oncology by General Surgery today. - Keep Araya cath for two weeks - follow laboratory on daily basis - Continue Pain medicine - NGT removed. - GI specialist and General Surgery following Leukocytosis, Trending down today 18.5. continue following and antibiotics Clindamycin and Flagyl. HTN, chronic, controlled. Obesity strongly recommended diet and exercise as outpatient. Hypocalcemia replaced Albumin 1.9 Oral thrush on Nystatin swish and swallow. UTI secondary to Gram negative rods on Levaquin. discussed with Patient and her Son in the room, all questions answered to the best of my abilities Not pathology report yet in EMR. DVT prophylaxis: Lovenox. Discharge Planning Once cleared by Specialists. Sergio Hammnods MD Feb 18, 2017 11:28
--- NOTE | 2017-02-18 13:19 | EKG ---
Date Performed: 02/17/2017 Time Performed: 15:31:18 PTAGE: 56 years EKG: Sinus tachycardia. Compared to prior tracing no significant change Normal ECG except for ra te PREVIOUS TRACING : 02/14/2017 22.51 DOCTOR: Salvador Casey Interpretating Date/Time 02/18/2017 13:17:21
[2017-02-18] MEDS: ENOXAPARIN SODIUM 40 MG/0.4 ML SYRINGE SQ SCH (14:09)
[2017-02-18] MEDS: NYSTATIN SUSP 500,000 U/5 ML CUP SWISH-SWAL SCH ×3 (14:09→19:47)
--- NOTE | 2017-02-18 15:05 | HHI.PR ---
Subjective Subjective Notes Painful when moving and ambulating---ACCOUNTING INTERN helps Objective Vitals/I&O Vital Signs Date Time Temp Pulse Resp B/P Pulse Ox O2 Delivery O2 Flow Rate FiO2 02/18/17 12:56 96 02/18/17 11:11 20 02/18/17 04:00 99.5 120 143/65 02/18/17 00:00 Room Air 02/17/17 20:00 21 02/16/17 10:31 2.00 Labs Laboratory Tests Test 02/18/17 03:34 White Blood Count 18.5 Red Blood Count 3.40 Hemoglobin 8.7 Hematocrit 27.2 Mean Corpuscular Volume 80.1 Mean Corpuscular Hemoglobin 25.4 Mean Corpuscular Hemoglobin 31.8 Concent Red Cell Distribution Width 16.1 Platelet Count 269 Mean Platelet Volume 9.0 Neutrophils (%) (Auto) 84.3 Lymphocytes (%) (Auto) 6.0 Monocytes (%) (Auto) 8.6 Eosinophils (%) (Auto) 0.9 Basophils (%) (Auto) 0.2 Neutrophils # (Auto) 15.6 Lymphocytes # (Auto) 1.1 Monocytes # (Auto) 1.6 Eosinophils # (Auto) 0.2 Basophils # (Auto) 0.0 CBC Comment DIFF FINAL Differential Comment Sodium Level 142 Potassium Level 3.9 Chloride Level 109 Carbon Dioxide Level 23.3 Anion Gap 10 Blood Urea Nitrogen 7 Creatinine 0.46 Estimat Glomerular Filtration 142 Rate Random Glucose 87 Calcium Level 7.1 Protein Corrected Calcium 8.4 Total Bilirubin 0.3 Aspartate Amino Transf 18 (AST/SGOT) Alanine Aminotransferase 12 (ALT/SGPT) Alkaline Phosphatase 72 Total Protein 4.8 Albumin 1.9 Date/Time Procedure Status Source Growth 02/17/17 14:54 Urine Culture - Preliminary Resulted Urine Catheterized Urine Gram Negative Jay 02/15/17 02:25 Urine Culture - Final Complete Urine Random Urine 50-100,000 CFU/ML MIXED QUYEN... Radiology Last 48 hours Impressions Abdomen/Pelvis CT 02/15/17 0026 Signed Impressions: Service Date/Time: Wednesday, February 15, 2017 01:18 - CONCLUSION: 1. Air and fluid distention of the small bowel and colon with a discrete transition in the region of the sigmoid. Distal sigmoid and rectum are normal in caliber. 2. At the transition point, there is focal restriction of the bowel lumen with increased density. Findings could represent carcinoma. Sigmoidoscopy is recommended for further evaluation. No regional adenopathy or distant metastatic disease identified. 3. Retroverted uterus. Félix Andujar MD Chest X-Ray 02/15/17 0000 Signed Impressions: Service Date/Time: Wednesday, February 15, 2017 15:40 - CONCLUSION: 1. No acute cardiopulmonary disease. Chris López MD Abdomen X-Ray 02/15/17 0000 Signed Impressions: Service Date/Time: Wednesday, February 15, 2017 08:59 - CONCLUSION: 1. Nonspecific bowel gas pattern 2. Focal prominent dilatation of the colon which appears to be secondary to a mass in the sigmoid colon suspicious for colon cancer as noted on the recent CT scan of the abdomen and pelvis.. Avery North MD Cardiovascular: Regular, Other (HR 110) Lungs: Clear Abdomen: Other (abdomen tender; midline incision with cholo in place; no drainage; GLO with SS drainage; Colostomy--stoma pink and viable--liquid stool in appliance ) Extremities: Other (generalized mild edema ) A/P Assessment and Plan 56 year old female POD3 ex-lap; resection of sigmoid hemicolectomy en block with bladder and partial colon side wall;placement of ureteral stens with primary bladder repair; primary colon repair; Krueger's procedure with end colostomy -Continue ACCOUNTING INTERN -Ice chips -Continue IS -OOB and mobilize -Dressing: dry [place] to midline incisional change BID and PRN -Start colostomy teaching -Consult to Medical Oncology -Pathology pending -Start Lovenox -Continue to monitor GLO -SKAGGS MUST REMAIN IN PLACE FOR 2 WEEKS!!!! Attending Statement patient seen at bedside pain control icu nurse abx skaggs to remain for bladder healing await final path results Attestation The exam, history, and the medical decision-making described in the above note were completed with the assistance of the mid-level provider. I reviewed and agree with the findings presented. I attest that I had a [id number] encounter with the patient on the same day, and personally performed and documented my assessment and findings in the medical record. Nikki Light Feb 18, 2017 15:05 Ean Martines MD Feb 25, 2017 20:19
[2017-02-18] MEDS: LEVOFLOXACIN 750 MG PREMIX INJ 150 ML IV SCH (17:29)
[2017-02-18] MEDS: ONDANSETRON HCL 4 MG/2 ML VIAL IVP PRN (18:19)
[2017-02-18] MEDS: PCA - TOTAL MG DILAUDID DELIVERED PER SHIFT SCH (22:00)
[2017-02-19] VITALS (12 sets, daily range): BP systolic 120–135; BP diastolic 58–64; PULSE 80–112; RESP 16–18; TEMP 98–99.1; O2SAT 92–98
[2017-02-19] MEDS: metroNIDAZOLE 500 MG INJ 100 ML IV SCH ×3 (02:47→18:13)
[2017-02-19] MEDS: CLINDAMYCIN INJ 600 MG in SODIUM CHLORIDE 0.9% INJ 100 ML IV SCH ×3 (03:25→19:58)
[2017-02-19] MEDS: METOPROLOL TARTRATE 5 MG/5 ML VIAL IV PUSH SCH ×4 (03:25→21:06)
[2017-02-19] MEDS: ONDANSETRON HCL 4 MG/2 ML VIAL IVP PRN ×2 (03:26→10:58)
[2017-02-19] MEDS: PCA - TOTAL MG DILAUDID DELIVERED PER SHIFT SCH ×3 (06:00→22:00)
[2017-02-19] MEDS: SODIUM CHLOR 0.9% 1000 ML INJ 1,000 ML IV SCH (06:08)
--- NOTE | 2017-02-19 07:10 | MB ---
cc: GIUSEPPE WILL M.D. DATE OF CONSULTATION 02/18/2017 REASON FOR CONSULTATION Consult requested by Dr. Martines for evaluation of a recently diagnosed possible sigmoid colon cancer. HISTORY OF PRESENT ILLNESS Leidy is a 56-year-old female. 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 She works for her who is a family practitioner in [place]. However, they have a home locally where they visit regularly. The patient does not have any significant past medical history. She was in the usual status of health up until about 10 days ago she noticed a severe sharp shooting pain on the left side of the abdomen. This was associated with nausea and vomiting. She also was unable to move her bowels. She thought that she was constipated. She took the MiraLax with no relief. Her pain was getting worse and with that she came to the emergency room. In the emergency room, the patient underwent an x-ray of the abdomen which show focal prominent dilatation of the colon which appears to be secondary to a mass in the sigmoid colon suspicious for colon cancer. The CT of the abdomen and pelvis showed air and fluid distension of the small bowel and colon with a discrete transition in the region of the sigmoid. Distal sigmoid and rectum were normal in caliber. No evidence of regional adenopathy or distant metastatic disease identified. The uterus is retroverted. GI was consulted. The patient had a colonoscopy last week Saturday which showed enlarged obstructing mass in the sigmoid colon. Unable to pass the scope through the mass, colonoscopy could not be done. Multiple biopsies were obtained. The pathology report is still pending. The patient underwent surgery yesterday with exploratory laparotomy and resection of the sigmoid colon en bloc with bladder and partial colon side wall. She also has a colostomy. The patient tolerated the surgery well and now she is recovering from that. I have been asked to see her for further evaluation. The patient has been complaining of soreness at the surgical site. She denies any nausea or vomiting. Her colostomy bag is functioning fine. There is no blood. Her stools are brown. The patient denies any weight loss or anorexia prior to admission to the hospital. She never had a colonoscopy, however, she had a sigmoidoscopy about six years ago which was reported to be negative. The rest of the review of systems is negative. PAST MEDICAL HISTORY Hypertension PAST SURGICAL HISTORY Flex sigmoidoscopy about six years ago. MEDICATIONS 1. Lotensin 2. Tylenol ALLERGIES PENICILLIN, BIAXIN, DIFLUCAN, KEFLEX, AND ZITHROMAX. FAMILY HISTORY Father . She stated that he was exposed to a nuclear plant. The mother from Alzheimer's disease. The patient has four brothers, two from cardiac problem, two are alive and well. The patient has one sister and one son all alive and well. She does not have any daughters. SOCIAL HISTORY The patient is , lives with her who is a family practitioner in [place]. The patient does not smoke cigarettes, does not drink alcohol. PHYSICAL EXAM This is a well-developed, well-nourished white female in no apparent distress. VITAL SIGNS: Temperature 99.4, heart rate is 104, blood pressure 125/97, O2 saturation 99% on room air. HEENT: PERRLA, EOMI, anicteric. No oral lesions are noted. NECK: No lymphadenopathy noted. LUNGS: Clear. No wheezing, rhonchi or rales. HEART: Regular rate and rhythm. ABDOMEN: Soft. Tenderness noted due to the recent surgery. A colostomy bag noted in the left lower quadrant. EXTREMITIES: No pedal edema. NEUROLOGIC: Awake, alert, and oriented times three. SKIN: No significant lesions noted. ASSESSMENT 1. Obstructing large sigmoid mass most consistent with cancer. Status post sigmoid colectomy with end colostomy. 2. Hypertension PLAN I have reviewed her available records and I had an extensive discussion with the patient's and son regarding the possibility of colon cancer. We discussed the flexible sigmoidoscopy findings which showed large friable obstructing mass. Multiple biopsies were obtained, but the results of that are still not available. She underwent surgery yesterday. The operative findings are not available at the present time. The pathology report is still pending as well. The CT scan of the abdomen and pelvis does not show any lymphadenopathy or liver metastasis. Her CEA is 22.9 and CA19-9 is 169. Her liver enzymes are normal except the total protein and albumin are low. When she was admitted to the hospital last week, she was not anemic, but MCV was low at 79.7. After the surgery today, her hemoglobin had dropped to 8.7. The patient does not require any blood transfusion at the present time. We discussed that the patient needs chemotherapy then typically we start 3-4 weeks after the surgery to give enough time for the wound to heal. We discussed that the operative report is not available at the present time. The pathology report is also pending. I will discuss with her once we have those reports available. 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 She has been working for her who is a family practitioner in [place]. Her was also present during the interview. They have asked questions and these were answered to their satisfaction. Further recommendations based on the hospital stay. Thank you for asking my opinion. MD DELMI Garcia/NEY /10:25 PM /6:56 AM
[2017-02-19] MEDS: HYDROmorphone HCL PCA 6 MG/30 ML IV SCH (10:55)
--- NOTE | 2017-02-19 11:33 | PD.ONC.PN ---
Subjective Subjective Remarks Afebrile overnight. Patient having some pain in abdomen, improved with pain pump. Objective Data Date Time Temp Pulse Resp B/P Pulse Ox O2 Delivery O2 Flow Rate FiO2 02/19/17 10:55 16 02/19/17 10:00 112 02/19/17 08:00 96 02/19/17 06:00 14 02/19/17 06:00 94 02/19/17 04:00 99.1 106 16 120/58 95 02/19/17 04:00 88 02/19/17 02:00 94 02/19/17 00:00 99.1 106 16 120/58 95 02/19/17 00:00 106 02/18/17 23:21 16 02/18/17 22:00 114 02/18/17 22:00 22 02/18/17 20:00 104 02/18/17 20:00 99 Room Air 02/18/17 20:00 99.4 104 22 125/57 99 02/18/17 19:40 94 21 02/18/17 18:00 105 02/18/17 16:00 99.0 108 13 136/63 96 02/18/17 16:00 103 02/18/17 14:00 103 02/18/17 12:56 96 02/18/17 12:00 108 02/18/17 12:00 99.2 108 21 118/72 96 Result Diagram: 02/18/17 0334 02/18/17 0334 Culture Results Microbiology Date/Time Procedure Status Source Growth 02/17/17 14:54 Urine Culture - Final Complete Urine Catheterized Urine Pseudomonas Aeruginosa Escherichia Coli Administered Medications Medications (Trade) Dose Ordered Sig/Jose E Route PRN Reason Start Time Stop Time Status Last Admin Dose Admin Sodium Chloride (NS 1000 ml Inj) 1,000 ml @ 125 mls/hr Q8H IV 02/15/17 02:49 02/19/17 06:08 Ondansetron HCl (Zofran Inj) 4 mg Q4H PRN IVP NAUSEA OR VOMITING 02/15/17 11:00 02/19/17 10:58 Promethazine HCl (Phenergan Inj) 25 mg Q6H PRN IM NAUSEA OR VOMITING 02/15/17 08:45 02/15/17 11:43 Sodium Chloride (NS Flush) 2 ml BID IV FLUSH 02/15/17 23:00 02/18/17 10:20 Hydromorphone HCl (Dilaudid AMMUNITION COMPONENTS INSPECTOR Inj) 6 mg UNSCH IV 02/16/17 01:15 02/19/17 10:55 AMMUNITION COMPONENTS INSPECTOR Dosage Infused (Pha) 1 Q8HR .XX 02/16/17 06:00 02/19/17 06:00 Benzocaine/ Menthol 1 lozenge 1 lozenge UNSCH PRN BUCCAL SORE THROAT 02/16/17 16:30 02/16/17 17:29 Metronidazole 100 ml @ 100 mls/hr Q8H IV 02/17/17 11:00 02/19/17 02:47 Clindamycin Phosphate 600 mg/ Sodium Chloride 104 ml @ 208 mls/hr Q8H IV 02/17/17 12:00 02/19/17 03:25 Levofloxacin/ Dextrose (Levaquin 750 Mg Premix Inj) 150 ml @ 100 mls/hr Q24H IV 02/17/17 16:00 02/18/17 17:29 Metoprolol Tartrate (Lopressor Inj) 5 mg Q6H IV PUSH 02/18/17 16:00 02/19/17 03:25 Nystatin (Mycostatin Liq) 5 ml QID SWISH-SWAL 02/18/17 13:00 02/18/17 19:47 Enoxaparin Sodium (Lovenox Inj) 40 mg Q24H SQ 02/18/17 14:00 02/18/17 14:09 Objective Remarks GENERAL: Middle aged female upright in bed, complaining of pain. SKIN: Warm and dry. HEAD: Normocephalic. EYES: No injection or drainage. NECK: Supple, trachea midline. CARDIOVASCULAR: Regular rate and rhythm RESPIRATORY: Breath sounds equal bilaterally. No accessory muscle use. GASTROINTESTINAL: Abdomen soft, bandages c/d/i, abdomen tender. EXTREMITIES: No cyanosis NEUROLOGICAL: awake and alert, normal speech. moving all extremities. Assessment/Plan Problem List: (1) Mass of colon Status: Acute Plan: 02/19: await operative report and pathology report. discussed potential chemotherapy 3-4 weeks post surgery --Obstructing large sigmoid mass most consistent with cancer. --Status post sigmoid colectomy with end colostomy. --CT ab/pelvis: no LAD or liver mets Assessment 56y/o female with recently diagnosed possible sigmoid colon cancer. h/o Hypertension Attending Statement No new complaints Operative report and pathology report.Still pending We will followThe exam, history, and the medical decision-making described in the above note were completed with the assistance of the mid-level provider. I reviewed and agree with the findings presented. I attest that I had a face-to- face encounter with the patient on the same day, and personally performed and documented my assessment and findings in the medical record. Daniela Mohan Feb 19, 2017 11:33 Demetria Parada MD Feb 19, 2017 22:21
[2017-02-19] MEDS: NYSTATIN SUSP 500,000 U/5 ML CUP SWISH-SWAL SCH ×4 (11:49→20:00)
--- NOTE | 2017-02-19 12:46 | HHI.PR ---
Subjective Subjective Notes Resting in bed Taking it slow with the clear liquids HR better today Objective Vitals/I&O Vital Signs Date Time Temp Pulse Resp B/P Pulse Ox O2 Delivery O2 Flow Rate FiO2 02/19/17 10:55 16 02/19/17 10:00 112 02/19/17 04:00 99.1 120/58 95 02/18/17 20:00 Room Air 02/18/17 19:40 21 02/16/17 10:31 2.00 Labs Date/Time Procedure Status Source Growth 02/17/17 14:54 Urine Culture - Final Complete Urine Catheterized Urine Pseudomonas Aeruginosa Escherichia Coli Radiology Last 48 hours Impressions Abdomen/Pelvis CT 02/15/17 0026 Signed Impressions: Service Date/Time: Wednesday, February 15, 2017 01:18 - CONCLUSION: 1. Air and fluid distention of the small bowel and colon with a discrete transition in the region of the sigmoid. Distal sigmoid and rectum are normal in caliber. 2. At the transition point, there is focal restriction of the bowel lumen with increased density. Findings could represent carcinoma. Sigmoidoscopy is recommended for further evaluation. No regional adenopathy or distant metastatic disease identified. 3. Retroverted uterus. Félix Andujar MD Chest X-Ray 02/15/17 0000 Signed Impressions: Service Date/Time: Wednesday, February 15, 2017 15:40 - CONCLUSION: 1. No acute cardiopulmonary disease. Chris López MD Abdomen X-Ray 02/15/17 0000 Signed Impressions: Service Date/Time: Wednesday, February 15, 2017 08:59 - CONCLUSION: 1. Nonspecific bowel gas pattern 2. Focal prominent dilatation of the colon which appears to be secondary to a mass in the sigmoid colon suspicious for colon cancer as noted on the recent CT scan of the abdomen and pelvis.. Avery North MD Cardiovascular: Regular Lungs: Clear Abdomen: Other (midline incision with sunita-cholo removed; moderate amount of serous drainage on bandage; GLO with SS drainage; colostomy in place with stool in bag), Post-op tenderness Extremities: Other (generalized mild edema ) A/P Assessment and Plan 56 year old female POD4 ex-lap; resection of sigmoid hemicolectomy en block with bladder and partial colon side wall;placement of ureteral stens with primary bladder repair; primary colon repair; Krueger's procedure with end colostomy -Continue COLLEGE ATHLETIC DIRECTOR -Continue sips of clears -Continue IS -OOB and mobilize -Dressing: dry 4x4 gauze on midline incision with ABD; secure with paper tape; change TID and PRN -Start colostomy teaching---I have obtained colostomy teaching kit for her -Appreciate Medical Oncology -Pathology pending -Lovenox -DC GLO today -SKAGGS MUST REMAIN IN PLACE FOR 2 WEEKS!!!! Attending Statement patient seen at bedside still with tachy, better with beta block iv pain meds encourage oob Attestation The exam, history, and the medical decision-making described in the above note were completed with the assistance of the mid-level provider. I reviewed and agree with the findings presented. I attest that I had a [id number] encounter with the patient on the same day, and personally performed and documented my assessment and findings in the medical record. Nikki Light Feb 19, 2017 12:46 Ean Martines MD Feb 25, 2017 20:27
[2017-02-19 12:59] LABS: BASOPHIL % 0.2 % (0.0-2.0); EOSINOPHIL # 0.3 TH/MM3 (0-0.4); EOSINOPHIL % 1.5 % (0.0-4.0); HEMO FLAGS DIFF FINAL; LYMPH % 5.6 % (9.0-44.0); LYMPHOCYTE # 1.1 TH/MM3 (1.0-4.8); MEAN CELL VOLUME 80.4 FL (80.0-100.0); MEAN CORPUSCULAR HEMOGLOBIN 24.8 PG (27.0-34.0); MEAN CORPUSCULAR HGB CONC 30.9 % (32.0-36.0); MONO % 8.1 % (0.0-8.0); NEUT % 84.6 % (16.0-70.0); PLATELET COUNT 361 TH/MM3 (150-450); RED BLOOD COUNT 3.35 MIL/MM3 (4.00-5.30); RED CELL DISTRIBUTION WIDTH 16.6 % (11.6-17.2); WHITE BLOOD COUNT 18.9 TH/MM3 (4.0-11.0)
[2017-02-19 13:24] LABS: BICARBONATE 17.9 MEQ/L (21.0-32.0); POTASSIUM 3.3 MEQ/L (3.5-5.1)
--- NOTE | 2017-02-19 14:04 | HHI.PR ---
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 plan today to remove NG tube later today, early ambulation. to consult emergency management specialist for next Saturday02/18/17. keep Araya cath for two weeks. COUNTY SURVEYOR for pain control. seen in her bedroom in the presence of her also discussed with nurse Miss Del Cid, now her Colostomy is working. at this time in pain, continue COUNTY SURVEYOR pump. 02/17: Seen in the presence of her and discussed with nurse Miss Gonsalez continue, states she is in pain, and lost her IV peripheral line, asked for Vascular team for another line. no nausea, vomit or diarrhea. was dehydrated in am and corrected by General camp recreation specialist. 02/18: Seen in her bedroom in the presence of nurse Miss Gonsalez asking me do remove Araya Cath, I showed the Surgical Recommendations by General Surgery, The Araya Must Remain in place for 2 weeks after surgery, I left that written in the Whiteboard in the patient's room, I can see the patient has Oral Thrush was started on Nystatin swish and swallow. no nausea, vomit or diarrhea. 02/19: Stable in her bedroom seen in the presence of her Son, nauseated, no vomit or diarrhea, colostomy working well, GLO drainage removed and dressed by general Surgery. Objective Vital Signs Date Time Temp Pulse Resp B/P Pulse Ox O2 Delivery O2 Flow Rate FiO2 02/19/17 10:55 16 02/19/17 10:00 112 02/19/17 08:00 96 02/19/17 06:00 14 02/19/17 06:00 94 02/19/17 04:00 99.1 106 16 120/58 95 02/19/17 04:00 88 02/19/17 02:00 94 02/19/17 00:00 99.1 106 16 120/58 95 02/19/17 00:00 106 02/18/17 23:21 16 02/18/17 22:00 114 02/18/17 22:00 22 02/18/17 20:00 104 02/18/17 20:00 99 Room Air 02/18/17 20:00 99.4 104 22 125/57 99 02/18/17 19:40 94 21 02/18/17 18:00 105 02/18/17 16:00 99.0 108 13 136/63 96 02/18/17 16:00 103 I/O 02/18/17 02/18/17 02/18/17 02/19/17 02/19/17 02/19/17 07:00 15:00 23:00 07:00 15:00 23:00 Intake Total 1246 ml 1191 ml 1192 ml 1216 ml Output Total 725 ml 750 ml 600 ml 725 ml Balance 521 ml 441 ml 592 ml 491 ml Intake Oral 120 ml 120 ml 120 ml 240 ml IV Total 1126 ml 1071 ml 1072 ml 976 ml Output Urine Total 425 ml 600 ml 550 ml 525 ml Stool Total 300 ml 150 ml 50 ml 200 ml Drainage Total 0 ml 0 ml 0 ml 0 ml Result Diagram: 02/19/17 1204 02/19/17 1204 Imaging Last Impressions Abdomen/Pelvis CT 02/15/17 0026 Signed Impressions: Service Date/Time: Wednesday, February 15, 2017 01:18 - CONCLUSION: 1. Air and fluid distention of the small bowel and colon with a discrete transition in the region of the sigmoid. Distal sigmoid and rectum are normal in caliber. 2. At the transition point, there is focal restriction of the bowel lumen with increased density. Findings could represent carcinoma. Sigmoidoscopy is recommended for further evaluation. No regional adenopathy or distant metastatic disease identified. 3. Retroverted uterus. Félix Andujar MD Chest X-Ray 02/15/17 0000 Signed Impressions: Service Date/Time: Wednesday, February 15, 2017 15:40 - CONCLUSION: 1. No acute cardiopulmonary disease. Chris López MD Abdomen X-Ray 02/15/17 0000 Signed Impressions: Service Date/Time: Wednesday, February 15, 2017 08:59 - CONCLUSION: 1. Nonspecific bowel gas pattern 2. Focal prominent dilatation of the colon which appears to be secondary to a mass in the sigmoid colon suspicious for colon cancer as noted on the recent CT scan of the abdomen and pelvis.. 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, invasion to the Urinary Bladder and Cecum, performed Exploratory laparotomy, resection of Sigmoid hemicolectomy en Block with bladder and partial colon side wall, placement of ureteral stents with primary bladder repair, primary colon repair, Krueger's Procedure End Colostomy 02/15/17 Other Results Laboratory Tests Test 02/15/17 02/15/17 02/15/17 02/16/17 00:25 02:25 10:53 00:36 Prothrombin Time 10.7 SEC Prothromb Time International 1.0 RATIO Ratio Activated Partial 25.7 SEC Thromboplast Time Lactic Acid Level 0.8 mmol/L Direct Bilirubin 0.1 MG/DL Indirect Bilirubin 0.3 MG/DL Troponin I LESS THAN 0.02 NG/ML Lipase 103 U/L Urine Color YELLOW Urine Turbidity HAZY Urine pH 6.0 Urine Specific [place] GREATER THAN 1.050 Urine Protein 30 mg/dL Urine Glucose (UA) NEG mg/dL Urine Ketones 150 mg/dL Urine Occult Blood LARGE Urine Nitrite NEG Urine Bilirubin SMALL Urine Urobilinogen LESS THAN 2.0 MG/DL Urine Leukocyte Esterase MOD Urine RBC /hpf Urine WBC /hpf Urine Squamous Epithelial 1 /hpf Cells Urine Hyaline Casts 20 /lpf Urine Granular Casts 4 /lpf Urine Waxy Casts 12 /lpf Urine Mucus FEW /lpf Urine Yeast (Budding) FEW Microscopic Urinalysis Comment CULTURE INDICATED Carcinoembryonic Antigen 22.9 NG/ML CA 19-9 Antigen 169.2 U/ML Nasal Screen MRSA (PCR) MRSA NOT DETECTED Test 02/17/17 02/18/17 02/19/17 03:17 03:34 12:04 Hematology Comments * Phosphorus Level 2.1 MG/DL Magnesium Level 1.8 MG/DL Protein Corrected Calcium 8.4 MG/DL Total Bilirubin 0.3 MG/DL Aspartate Amino Transf 18 U/L (AST/SGOT) Alanine Aminotransferase 12 U/L (ALT/SGPT) Alkaline Phosphatase 72 U/L Total Protein 4.8 GM/DL Albumin 1.9 GM/DL White Blood Count 18.9 TH/MM3 Red Blood Count 3.35 MIL/MM3 Hemoglobin 8.3 GM/DL Hematocrit 27.0 % Mean Corpuscular Volume 80.4 FL Mean Corpuscular Hemoglobin 24.8 PG Mean Corpuscular Hemoglobin 30.9 % Concent Red Cell Distribution Width 16.6 % Platelet Count 361 TH/MM3 Mean Platelet Volume 9.3 FL Neutrophils (%) (Auto) 84.6 % Lymphocytes (%) (Auto) 5.6 % Monocytes (%) (Auto) 8.1 % Eosinophils (%) (Auto) 1.5 % Basophils (%) (Auto) 0.2 % Neutrophils # (Auto) 16.0 TH/MM3 Lymphocytes # (Auto) 1.1 TH/MM3 Monocytes # (Auto) 1.5 TH/MM3 Eosinophils # (Auto) 0.3 TH/MM3 Basophils # (Auto) 0.0 TH/MM3 CBC Comment DIFF FINAL Differential Comment Sodium Level 140 MEQ/L Potassium Level 3.3 MEQ/L Chloride Level 108 MEQ/L Carbon Dioxide Level 17.9 MEQ/L Anion Gap 14 MEQ/L Blood Urea Nitrogen 6 MG/DL Creatinine 0.41 MG/DL Estimat Glomerular Filtration 162 ML/MIN Rate Random Glucose 89 MG/DL Calcium Level 7.8 MG/DL Objective Remarks GENERAL: Obese, in no apparent distress. SKIN: No rashes, ecchymoses or lesions. Cool and dry. HEAD: Atraumatic. Normocephalic. EYES: Pupils equal round and reactive. Extraocular motions intact. ENT: Nose without bleeding, whitish tongue and oral mucosa. NECK: Trachea midline. No JVD or lymphadenopathy. CARDIOVASCULAR: Regular rate and rhythm without murmurs, gallops, or rubs. RESPIRATORY: Clear to auscultation. Breath sounds equal bilaterally. No wheezes , rales, or rhonchi. GASTROINTESTINAL: Abdomen soft, Ostomy in place, dressed surgical wound. MUSCULOSKELETAL: Extremities without clubbing, cyanosis, or edema. NEUROLOGICAL: Awake and alert. Motor and sensory grossly within normal limits.. Normal speech. Araya cath in place. Medications and IVs Current Medications Medications (Trade) Dose Ordered Sig/Jose E Route Start Time Stop Time Status Last Admin (NS 1000 ml Inj) 1,000 ml @ 125 mls/hr Q8H IV 02/15/17 02:49 02/19/17 06:08 (Zofran Inj) 4 mg Q4H PRN IVP 02/15/17 11:00 02/19/17 10:58 (Phenergan Inj) 25 mg Q6H PRN IM 02/15/17 08:45 02/15/17 11:43 (NS Flush) 2 ml UNSCH PRN IV FLUSH 02/15/17 23:00 (NS Flush) 2 ml BID IV FLUSH 02/15/17 23:00 02/18/17 10:20 (Dilaudid COUNTY SURVEYOR Inj) 6 mg UNSCH IV 02/16/17 01:15 02/19/17 10:55 COUNTY SURVEYOR Dosage Infused (Pha) 1 Q8HR .XX 02/16/17 06:00 02/19/17 06:00 (Narcan Inj) 0.4 mg UNSCH PRN IV 02/16/17 01:15 (Benadryl) 25 mg Q6H PRN PO 02/16/17 01:15 (Benadryl Inj) 25 mg Q6H PRN IV PUSH 02/16/17 01:15 Benzocaine/ Menthol 1 lozenge 1 lozenge UNSCH PRN BUCCAL 02/16/17 16:30 02/16/17 17:29 Metronidazole 100 ml @ 100 mls/hr Q8H IV 02/17/17 11:00 02/19/17 11:00 Clindamycin Phosphate 600 mg/ Sodium Chloride 104 ml @ 208 mls/hr Q8H IV 02/17/17 12:00 02/19/17 11:50 (Levaquin 750 Mg Premix Inj) 150 ml @ 100 mls/hr Q24H IV 02/17/17 16:00 02/18/17 17:29 (Lopressor Inj) 5 mg Q6H IV PUSH 02/18/17 16:00 02/19/17 11:50 (Mycostatin Liq) 5 ml QID SWISH-SWAL 02/18/17 13:00 02/19/17 11:49 (Lovenox Inj) 40 mg Q24H SQ 02/18/17 14:00 02/18/17 14:09 A/P Assessment and Plan 56 y/o female with a history of HTN came to the ED with complaints of epigastric pain since Saturday, that continues to worsen with associated nausea and vomiting 2-3 times a day. 1. 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 - emergency management specialist following and probable Chemotherapy in 3 to 4 weeks. Invasive moderately differentiated Adenocarcinoma - Keep Araya cath for two weeks - follow laboratory on daily basis - Continue Pain medicine - NGT and GLO removed - GI specialist and General Surgery following Leukocytosis, 18.9. continue following and antibiotics Clindamycin and Flagyl, Levaquin HTN, chronic, controlled. Obesity strongly recommended diet and exercise as outpatient. Hypocalcemia replaced Albumin 1.9 Oral thrush on Nystatin swish and swallow. UTI secondary to Gram negative rods on Levaquin. discussed with Patient and her Son in the room, all questions answered to the best of my abilities DVT prophylaxis: Lovenox. Discharge Planning Once cleared by Specialists. Sergio Hammonds MD Feb 19, 2017 14:04
[2017-02-19] MEDS: PROMETHAZINE INJ 25 MG/ML VIAL IM PRN ×2 (14:55→20:32)
[2017-02-19] MEDS: POTASSIUM CHLOR 20 MEQ PREMIX 100 ML IV SCH ×3 (15:36→18:12)
[2017-02-19] MEDS: LEVOFLOXACIN 750 MG PREMIX INJ 150 ML IV SCH (15:36)
[2017-02-19] MEDS: ENOXAPARIN SODIUM 40 MG/0.4 ML SYRINGE SQ SCH (15:37)
[2017-02-19] MEDS: SODIUM CHLORIDE 0.9% FLUSH 10 ML FLUSH IV FLUSH SCH (21:00)
[2017-02-20] VITALS (13 sets, daily range): BP systolic 124–156; BP diastolic 55–69; PULSE 65–90; RESP 15–23; TEMP 98.1–99.2; O2SAT 93–98
[2017-02-20] MEDS: ONDANSETRON HCL 4 MG/2 ML VIAL IVP PRN ×2 (01:33→09:19)
[2017-02-20] MEDS: METOPROLOL TARTRATE 5 MG/5 ML VIAL IV PUSH SCH ×4 (03:37→21:02)
[2017-02-20] MEDS: metroNIDAZOLE 500 MG INJ 100 ML IV SCH ×3 (03:38→19:33)
[2017-02-20] MEDS: CLINDAMYCIN INJ 600 MG in SODIUM CHLORIDE 0.9% INJ 100 ML IV SCH ×3 (03:38→19:33)
[2017-02-20] MEDS: SODIUM CHLOR 0.9% 1000 ML INJ 1,000 ML IV SCH ×3 (03:39→08:34)
[2017-02-20] MEDS: HYDROmorphone HCL PCA 6 MG/30 ML IV SCH ×2 (04:35→15:43)
[2017-02-20 05:02] LABS: AUTOMATED NEUTROPHIL # 14.2 TH/MM3 (1.8-7.7); BASOPHIL # 0.1 TH/MM3 (0-0.2); BASOPHIL % 0.3 % (0.0-2.0); EOSINOPHIL # 0.2 TH/MM3 (0-0.4); HEMATOCRIT 24.7 % (35.0-46.0); LYMPH % 4.7 % (9.0-44.0); LYMPHOCYTE # 0.8 TH/MM3 (1.0-4.8); MEAN CELL VOLUME 79.1 FL (80.0-100.0); MEAN CORPUSCULAR HEMOGLOBIN 24.9 PG (27.0-34.0); MEAN CORPUSCULAR HGB CONC 31.4 % (32.0-36.0); MONO % 8.9 % (0.0-8.0); NEUT % 85.1 % (16.0-70.0); PLATELET COUNT 353 TH/MM3 (150-450); RED BLOOD COUNT 3.12 MIL/MM3 (4.00-5.30); RED CELL DISTRIBUTION WIDTH 16.5 % (11.6-17.2); WHITE BLOOD COUNT 16.7 TH/MM3 (4.0-11.0)
[2017-02-20 05:19] LABS: HEMO FLAGS AUTO DIFF
[2017-02-20 05:40] LABS: BICARBONATE 17.8 MEQ/L (21.0-32.0); CALCIUM-PROTEIN CORRECTED 8.6 MG/DL (8.5-10.1); MAGNESIUM 1.7 MG/DL (1.5-2.5); TOTAL BILIRUBIN ADULT 0.3 MG/DL (0.2-1.0)
[2017-02-20 05:46] LABS: POTASSIUM 2.9 MEQ/L (3.5-5.1)
[2017-02-20] MEDS: PCA - TOTAL MG DILAUDID DELIVERED PER SHIFT SCH ×3 (06:00→22:00)
[2017-02-20] MEDS ORDERED: POTASSIUM PHOSPHATE INJ 30 MMOL in SODIUM CHLOR 0.9% 250 ML INJ 250 ML IV ONE (07:00)
--- NOTE | 2017-02-20 08:16 | MP ---
cc: JOSE CRUZ MARTINES MD DATE OF SURGERY 02/15/2017 PREOPERATIVE DIAGNOSIS Large bowel obstruction, concern for malignant process. POSTOPERATIVE DIAGNOSIS Large bowel obstruction, concern for malignant process. PROCEDURE PERFORMED Exploratory laparotomy, resection of sigmoid with en bloc cystectomy and partial colon sidewall resection, placement of bilateral ureter stents, primary bladder repair, primary colon repair, Hayes's procedure with end colostomy. SURGEON Dr. Jose Cruz Martines INDUSTRIAL SECURITY ANALYST Dr. Chuck Arboleda needed due to the complex case Dr. Arboleda assisted with retraction, camera control and particular aspects of the procedure. WOUND CLASSIFICATION Clean, contaminated SPECIMENS En bloc resection sigmoidectomy, partial bladder, partial colon peritoneal neck. FINDINGS Extremely dilated colon due to obstruction 20 cm from anorectal verge. Large bowel obstruction tumor invading bladder and partial colon sidewall with concern for peritoneal metastatic disease. ESTIMATED BLOOD LOSS 150 cc IV FLUIDS 4000 cc. DRAINS A 10-Estonian Sorin drain. COMPLICATIONS None INDICATIONS The patient is a 56-year-old female who presented with the acute onset of abdominal pain, distension, nausea and vomiting. She underwent CT scan with findings of concern for malignant process causing a large bowel obstruction. Initial attempts for gastroenterology for a colonoscopy and possible stent placement, and possible biopsy, however, gastroenterology was able to pass the scope or stent and unable to traverse the lesion. Noted the lesion was 20 cm from the anal verge. Therefore, a decision was made for emergent operative intervention including exploration and resection. DETAILS OF THE PROCEDURE The patient was taken to the operating suite, placed in the supine position. She was prepped and draped in the usual sterile fashion after induction of general endotracheal anesthesia. A brief time-out done stating correct patient, procedure, surgical site and we were all in agreement with this. Attention directed to the midline umbilicus. A ten blade was used to make a midline incision and further dissection was done with electro Bovie cautery. The peritoneum was identified, grasped with two DeBakey's and transected with endoshears. Upon opening the abdomen, there was noted to be a severely dilated cecum which was noted to have a small amount of minimal ascites as well. The colon and cecum were identified and traversed down to the sigmoid colon. Retractors were placed including a Bookwalter retractor. The dissection begun on the left lateral peritoneal reflection taking this down with electro Bovie cautery and using the Harmonic scalpel. Further dissection down into the pelvis noted again using harmonic scalpel and LigaSure devices to transect the mesentery. The superior rectal vessels were identified and tied off appropriately. Ureters were identified and protected. There is a palpable mass in the pelvis and the distal sigmoid and the rectosigmoid junction. The mass was noted to be involved with the dome of the bladder and intermittently adhered and actually invading through the bladder. Further, there was noted to be peritoneal studding in the pelvis and some specimens were taken and sent to pathology. Once the tumor was mobilized, a resection of a portion of the dome of the bladder was necessary in order to get an en bloc resection. Further, a contour ELAINE stapler was used to transect the distal end of the colon. Stay sutures were placed for marking stitches including 2-0 Prolene to ravi the stump. The sigmoid was traversed proximally and had been adequately mobilized and was transected with a 55 Endo ELAINE green load stapler. Next, attention redirected to the bladder. There was noted be a Araya in place. Decision at this point was done in order to confirm no ureteral involvement including the placement of bilateral double-J ureteral stents. This was done placing a guidewire in the orifice of the ureter inside the bladder. That was exposed and threading the stents over these guidewires. These were appropriately placing and confirmed and noted to have clear yellow urine produced. The bladder was then closed in a double layer closure using a running 3-0 chromic, followed by a running 3-0 Vicryl suture. Of note, prior to entry into the abdomen, a large wound protector was in place, the Portillo wound protector, in order to protect the wound edges. At this point, further exploration of the abdomen was done palpating the liver without noticing further metastatic disease, examining diaphragms and running the small bowel without further evidence of disease. Decision was then made for multiple liters of irrigation to thoroughly irrigate the abdomen. Next, a 10-Estonian GLO drain was placed into the pelvis and secured with a 2-0 nylon. Following this, the Portillo wound protector was removed. The abdomen was closed with a running looped #1 PDS x2. Next, the subcutaneous tissue was irrigated. Following this, sunita were done for closure and Telfa cholo were placed. A sterile dressings was placed. The wound was then covered. A Gladys used to grasp the proximal and the resected colon. Of note during colon resection, given the concern for cancer etiology, a high ligation of the colic including left colic vessels were done. Prior to removal of the specimen, the left colic vessel was doubly ligated with a 0 Vicryl suture. Next, the skin was grasped with a Mike and then a circular incision was made and cleaning out some of the subcutaneous fat. Further dissection done with electro Bovie cautery. Cruciate incision made in the fascia. Further dissection to the peritoneum was done. Two fingers moved freely in order to allow the proximal colon to come out for a colostomy creation. Colostomy was fashioned. The two stay sutures were placed down in the proximal portion of colon in order to secured it to the fascia and further 3-0 Vicryl's were used after an incision in the staple line and doing a [place] technique in order to mature the colostomy radially. After we were content with this, an ostomy appliance was then placed. The colostomy noted to be pink and viable. The patient tolerated the procedure well. There is no intraoperative complication. All lap and instrument counts were correct at the end of the procedure. The patient was extubated and taken to the PACU. MD JEANNIE Corcoran/NEY /8:22 PM /7:57 AM
[2017-02-20] MEDS ORDERED: POTASSIUM CHLORIDE 10 MEQ CONTROLLED RELEASE TAB PO ONE (08:30)
[2017-02-20 08:33] LABS: BANDS 8 % (0-6); BASOPHILS 1 % (0-2); MYELOCYTES 1 % (0-0); NEUTROPHIL # MANUAL DIFF 14.2 TH/MM3 (1.8-7.7); PLATELET ESTIMATE SMEAR NORMAL (NORMAL); PLATELET MORPHOLOGY NORMAL (NORMAL); POLYS (SEG NEUTROPHILS) 76 % (16-70); SCAN/DIFF FINAL DIFF MANUAL; WBC DIFF SAMPLE 100
[2017-02-20] MEDS: NYSTATIN SUSP 500,000 U/5 ML CUP SWISH-SWAL SCH ×4 (09:20→21:00)
[2017-02-20] MEDS: SODIUM CHLORIDE 0.9% FLUSH 10 ML FLUSH IV FLUSH SCH ×2 (09:21→21:00)
[2017-02-20] MEDS ORDERED: POTASSIUM CHLOR 20 MEQ PREMIX 100 ML IV ONE (10:00)
[2017-02-20] MEDS: PROMETHAZINE INJ 25 MG/ML VIAL IM PRN ×3 (11:01→21:01)
--- NOTE | 2017-02-20 11:33 | PD.ONC.PN ---
Subjective Subjective Remarks Afebrile overnight. Patient resting in bed. Having a lot of abdominal pain. She does not want me to touch her abdomen at all. Objective Data Date Time Temp Pulse Resp B/P Pulse Ox O2 Delivery O2 Flow Rate FiO2 02/20/17 06:00 82 02/20/17 06:00 20 02/20/17 04:35 21 02/20/17 04:00 80 02/20/17 04:00 98.9 80 15 140/63 93 02/20/17 02:00 90 02/20/17 00:00 87 02/20/17 00:00 99.2 87 23 142/65 93 02/19/17 22:00 80 02/19/17 22:00 18 02/19/17 20:00 92 02/19/17 20:00 99.0 92 17 135/64 98 02/19/17 18:00 92 02/19/17 16:00 98.0 100 18 131/60 92 02/19/17 16:00 95 02/19/17 14:00 98 02/19/17 14:00 18 02/19/17 12:00 102 02/19/17 12:00 98.6 94 18 124/61 94 02/20/17 02/20/17 02/20/17 07:00 15:00 23:00 Intake Total 912 ml Output Total 850 ml 150 ml Balance 62 ml -150 ml Result Diagram: 02/20/17 0417 02/20/17 0851 Laboratory Results Laboratory Tests Test 02/19/17 02/20/17 02/20/17 12:04 04:17 08:51 White Blood Count 18.9 TH/MM3 16.7 TH/MM3 Red Blood Count 3.35 MIL/MM3 3.12 MIL/MM3 Hemoglobin 8.3 GM/DL 7.8 GM/DL Hematocrit 27.0 % 24.7 % Mean Corpuscular Volume 80.4 FL 79.1 FL Mean Corpuscular Hemoglobin 24.8 PG 24.9 PG Mean Corpuscular Hemoglobin 30.9 % 31.4 % Concent Red Cell Distribution Width 16.6 % 16.5 % Platelet Count 361 TH/MM3 353 TH/MM3 Mean Platelet Volume 9.3 FL 9.1 FL Neutrophils (%) (Auto) 84.6 % 85.1 % Lymphocytes (%) (Auto) 5.6 % 4.7 % Monocytes (%) (Auto) 8.1 % 8.9 % Eosinophils (%) (Auto) 1.5 % 1.0 % Basophils (%) (Auto) 0.2 % 0.3 % Neutrophils # (Auto) 16.0 TH/MM3 14.2 TH/MM3 Lymphocytes # (Auto) 1.1 TH/MM3 0.8 TH/MM3 Monocytes # (Auto) 1.5 TH/MM3 1.5 TH/MM3 Eosinophils # (Auto) 0.3 TH/MM3 0.2 TH/MM3 Basophils # (Auto) 0.0 TH/MM3 0.1 TH/MM3 CBC Comment DIFF FINAL AUTO DIFF Differential Comment FINAL DIFF MANUAL Sodium Level 140 MEQ/L 140 MEQ/L Potassium Level 3.3 MEQ/L 2.9 MEQ/L 3.0 MEQ/L Chloride Level 108 MEQ/L 108 MEQ/L Carbon Dioxide Level 17.9 MEQ/L 17.8 MEQ/L Anion Gap 14 MEQ/L 1 MEQ/L Blood Urea Nitrogen 6 MG/DL 6 MG/DL Creatinine 0.41 MG/DL 0.37 MG/DL Estimat Glomerular Filtration 162 ML/MIN 182 ML/MIN Rate Random Glucose 89 MG/DL 105 MG/DL Calcium Level 7.8 MG/DL 7.4 MG/DL Differential Total Cells 100 Counted Neutrophils % (Manual) 76 % Band Neutrophils % 8 % Lymphocytes % 4 % Monocytes % 10 % Basophils % 1 % Neutrophils # (Manual) 14.2 TH/MM3 Myelocytes 1 % Platelet Estimate NORMAL Platelet Morphology Comment NORMAL Protein Corrected Calcium 8.6 MG/DL Phosphorus Level 2.0 MG/DL Magnesium Level 1.7 MG/DL Total Bilirubin 0.3 MG/DL Aspartate Amino Transf 12 U/L (AST/SGOT) Alanine Aminotransferase 11 U/L (ALT/SGPT) Alkaline Phosphatase 95 U/L Total Protein 5.0 GM/DL Albumin 1.6 GM/DL Culture Results Microbiology Date/Time Procedure Status Source Growth 02/17/17 14:54 Urine Culture - Final Complete Urine Catheterized Urine Pseudomonas Aeruginosa Escherichia Coli Administered Medications Medications (Trade) Dose Ordered Sig/Jose E Route PRN Reason Start Time Stop Time Status Last Admin Dose Admin Sodium Chloride (NS 1000 ml Inj) 1,000 ml @ 125 mls/hr Q8H IV 02/15/17 02:49 02/20/17 08:34 Ondansetron HCl (Zofran Inj) 4 mg Q4H PRN IVP NAUSEA OR VOMITING 02/15/17 11:00 02/20/17 09:19 Sodium Chloride (NS Flush) 2 ml BID IV FLUSH 02/15/17 23:00 02/20/17 09:21 Hydromorphone HCl (Dilaudid ALARM SIGNAL OPERATOR Inj) 6 mg UNSCH IV 02/16/17 01:15 02/20/17 04:35 ALARM SIGNAL OPERATOR Dosage Infused (Pha) 1 Q8HR .XX 02/16/17 06:00 02/20/17 06:00 Benzocaine/ Menthol 1 lozenge 1 lozenge UNSCH PRN BUCCAL SORE THROAT 02/16/17 16:30 02/16/17 17:29 Metronidazole 100 ml @ 100 mls/hr Q8H IV 02/17/17 11:00 02/20/17 10:37 Clindamycin Phosphate 600 mg/ Sodium Chloride 104 ml @ 208 mls/hr Q8H IV 02/17/17 12:00 02/20/17 03:38 Levofloxacin/ Dextrose (Levaquin 750 Mg Premix Inj) 150 ml @ 100 mls/hr Q24H IV 02/17/17 16:00 02/19/17 15:36 Metoprolol Tartrate (Lopressor Inj) 5 mg Q6H IV PUSH 02/18/17 16:00 02/20/17 09:19 Nystatin (Mycostatin Liq) 5 ml QID SWISH-SWAL 02/18/17 13:00 02/20/17 09:20 Enoxaparin Sodium 40 mg 40 mg Q24H SQ 02/18/17 14:00 02/19/17 15:37 Potassium Phosphate/Sodium Chloride (Potassium Phosphate Inj/NS 250 ml Inj) 260 ml @ 43.333 mls/ hr ONCE ONCE IV 02/20/17 07:00 02/20/17 12:59 02/20/17 08:38 Promethazine HCl (Phenergan Inj) 25 mg Q4H PRN IM nausea/vomiting 02/20/17 09:45 02/20/17 11:01 Objective Remarks GENERAL: Middle aged female supine in bed, appears uncomfortable SKIN: Warm and dry. HEAD: Normocephalic. EYES: No injection or drainage. NECK: Supple, trachea midline. CARDIOVASCULAR: Regular rate and rhythm RESPIRATORY: Breath sounds equal bilaterally. No accessory muscle use. GASTROINTESTINAL: Abdomen soft, bandages c/d/i, stoma site clean. +guarding, she would not allow me to touch her abdomen. EXTREMITIES: No cyanosis NEUROLOGICAL: awake and alert, normal speech. moving all extremities. Assessment/Plan Problem List: (1) Mass of colon Status: Acute Plan: 02/20: continue pain management. plan for follow up in clinic in 2 weeks. will give FOLFOX in 4 weeks post-surgery --Obstructing large sigmoid mass most consistent with cancer. --Status post sigmoid colectomy with end colostomy. --CT ab/pelvis: no LAD or liver mets Assessment 56y/o female with sigmoid colon cancer. h/o Hypertension Attending Statement c/o abd pain and vomiting. D/w pt regarding path . She has stage III colon ca. Recommend FOLFOX chemo as oupt Daniela Mohan Feb 20, 2017 11:33 Demetria Parada MD Feb 20, 2017 15:40
[2017-02-20 11:48] LABS: BACTERIA, URINE OCC /hpf; BLOOD, URINE LARGE (NEG); COMMENT (UR) CULTURE INDICATED; CULTURE IF INDICATED CULTURE INDICATED; GLUCOSE,URINE NEG (NEG); KETONE, URINE 150 mg/dL (NEG); NITRITE,URINE NEG (NEG); URINE COLOR LIGHT-RED (YELLW/STRAW)
[2017-02-20] MEDS: ACETAMINOPHEN 1000 MG/100 ML VIAL IV SCH ×2 (12:06→18:57)
--- NOTE | 2017-02-20 12:15 | HHI.PR ---
Subjective Subjective Notes Had multiple episodes of vomiting last night Does not feel like she is progressing Objective Vitals/I&O Vital Signs Date Time Temp Pulse Resp B/P Pulse Ox O2 Delivery O2 Flow Rate FiO2 02/20/17 06:00 82 02/20/17 06:00 20 02/20/17 04:00 98.9 140/63 93 02/18/17 20:00 Room Air 02/18/17 19:40 21 02/16/17 10:31 2.00 Labs Laboratory Tests Test 02/20/17 02/20/17 02/20/17 04:17 08:51 11:20 White Blood Count 16.7 Red Blood Count 3.12 Hemoglobin 7.8 Hematocrit 24.7 Mean Corpuscular Volume 79.1 Mean Corpuscular Hemoglobin 24.9 Mean Corpuscular Hemoglobin 31.4 Concent Red Cell Distribution Width 16.5 Platelet Count 353 Mean Platelet Volume 9.1 Neutrophils (%) (Auto) 85.1 Lymphocytes (%) (Auto) 4.7 Monocytes (%) (Auto) 8.9 Eosinophils (%) (Auto) 1.0 Basophils (%) (Auto) 0.3 Neutrophils # (Auto) 14.2 Lymphocytes # (Auto) 0.8 Monocytes # (Auto) 1.5 Eosinophils # (Auto) 0.2 Basophils # (Auto) 0.1 CBC Comment AUTO DIFF Differential Total Cells 100 Counted Neutrophils % (Manual) 76 Band Neutrophils % 8 Lymphocytes % 4 Monocytes % 10 Basophils % 1 Neutrophils # (Manual) 14.2 Myelocytes 1 Differential Comment FINAL DIFF MANUAL Platelet Estimate NORMAL Platelet Morphology Comment NORMAL Sodium Level 140 Potassium Level 2.9 3.0 Chloride Level 108 Carbon Dioxide Level 17.8 Anion Gap 1 Blood Urea Nitrogen 6 Creatinine 0.37 Estimat Glomerular Filtration 182 Rate Random Glucose 105 Calcium Level 7.4 Protein Corrected Calcium 8.6 Phosphorus Level 2.0 Magnesium Level 1.7 Total Bilirubin 0.3 Aspartate Amino Transf 12 (AST/SGOT) Alanine Aminotransferase 11 (ALT/SGPT) Alkaline Phosphatase 95 Total Protein 5.0 Albumin 1.6 Urine Color LIGHT-RED Urine Turbidity CLOUDY Urine pH 6.0 Urine Specific [place] 1.019 Urine Protein 100 Urine Glucose (UA) NEG Urine Ketones 150 Urine Occult Blood LARGE Urine Nitrite NEG Urine Bilirubin NEG Urine Urobilinogen LESS THAN 2.0 Urine Leukocyte Esterase LARGE Urine RBC Urine WBC Urine Bacteria OCC Microscopic Urinalysis Comment CULTURE INDICATED Date/Time Procedure Status Source Growth 02/20/17 11:20 Urine Culture Received Urine Clean Catch Pending 02/17/17 14:54 Urine Culture - Final Complete Urine Catheterized Urine Pseudomonas Aeruginosa Escherichia Coli Radiology Last 48 hours Impressions Abdomen/Pelvis CT 02/15/17 0026 Signed Impressions: Service Date/Time: Wednesday, February 15, 2017 01:18 - CONCLUSION: 1. Air and fluid distention of the small bowel and colon with a discrete transition in the region of the sigmoid. Distal sigmoid and rectum are normal in caliber. 2. At the transition point, there is focal restriction of the bowel lumen with increased density. Findings could represent carcinoma. Sigmoidoscopy is recommended for further evaluation. No regional adenopathy or distant metastatic disease identified. 3. Retroverted uterus. Félix Andujar MD Chest X-Ray 02/15/17 0000 Signed Impressions: Service Date/Time: Wednesday, February 15, 2017 15:40 - CONCLUSION: 1. No acute cardiopulmonary disease. Chris López MD Abdomen X-Ray 02/15/17 0000 Signed Impressions: Service Date/Time: Wednesday, February 15, 2017 08:59 - CONCLUSION: 1. Nonspecific bowel gas pattern 2. Focal prominent dilatation of the colon which appears to be secondary to a mass in the sigmoid colon suspicious for colon cancer as noted on the recent CT scan of the abdomen and pelvis.. Avery North MD Cardiovascular: Regular Lungs: Clear Abdomen: Other (soft; very tender to touch; not able to palpate due to tenderness; midline incision with moderate amount of drainage; stapled; GLO removed---site c/d/i; colostomy in place with pink stoma and stool in bag ) Extremities: No edema Narrative Exam Skaggs in place---urine dark A/P Assessment and Plan 56 year old female POD5 ex-lap; resection of sigmoid hemicolectomy en block with bladder and partial colon side wall;placement of ureteral stens with primary bladder repair; primary colon repair; Krueger's procedure with end colostomy -Repeat CT scan today due to abdominal pain -Added IV Tylenol for pain -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 Attending Statement patient seen at bedside persistent pain tachy will check ct to eval for abscess Attestation atThe exam, history, and the medical decision-making described in the above note were completed with the assistance of the mid-level provider. I reviewed and agree with the findings presented. I attest that I had a [id number] encounter with the patient on the same day, and personally performed and documented my assessment and findings in the medical record. Nikki Light Feb 20, 2017 12:15 Ean Martines MD Feb 25, 2017 20:37
[2017-02-20] MEDS: ENOXAPARIN SODIUM 40 MG/0.4 ML SYRINGE SQ SCH (15:43)
[2017-02-20] MEDS ORDERED: IOHEXOL 350 MG/ML 10 ML VIAL (for RAD DIAG) IV ONE (17:18)
[2017-02-20] MEDS: LEVOFLOXACIN 750 MG PREMIX INJ 150 ML IV SCH (17:25)
--- NOTE | 2017-02-20 17:41 | RADRPT ---
EXAM DATE/TIME: 02/20/2017 16:57 [facility] COMPARISON: CT ABDOMEN & PELVIS W CONTRAST, February 15, 2017, 1:18. INDICATIONS : Abdominal pain, bowel obstruction,post surgery, colostomy 4 days ago. IV CONTRAST: 100 cc Omnipaque 350 (iohexol) IV ORAL CONTRAST: No oral contrast ingested. RADIATION DOSE: 11.82 CTDIvol (mGy) MEDICAL HISTORY : Cardiovascular disease. Hypertension. SURGICAL HISTORY : Colostomy. ENCOUNTER: Subsequent ACUITY: 1 week PAIN SCALE: 8/10 LOCATION: abdomen TECHNIQUE: Volumetric scanning of the abdomen and pelvis was performed. Using automated exposure control and ad justment of the mA and/or kV according to patient size, radiation dose was kept as low as reasonably achievable to obtain optimal diagnostic quality images. DICOM format image data is available electro nically for review and comparison. FINDINGS: LOWER LUNGS: Small simple appearing bilateral pleural effusions with associated compressive atelectasis at the bas es. LIVER: Homogeneous density without lesion. Focal fat adjacent to the falciform ligament. There is no dilatio n of the biliary tree. Gallbladder is mildly distended with trace pericholecystic fluid. There is no gross abnormal thickening by CT. SPLEEN: Normal size without lesion. PANCREAS: Within normal limits. KIDNEYS: Kidneys are symmetrical in size and demonstrate symmetrical enhancement. Interval placement of bilate ral double-J ureteral stents. The left ureteral stent proximal collecting system loop is displaced in feriorly into the proximal ureter. Slight prominence of the ureters and bilateral renal collecting sy stems without significant hydronephrosis. Small hypodense subcentimeter lesions in the kidneys bilate rally are too small to fully characterize. ADRENAL GLANDS: Within normal limits. VASCULAR: There is no aortic aneurysm. BOWEL/MESENTERY: Interval postoperative changes of left lower quadrant colostomy. Small bowel loops are normal in prachi sharon. Mild residual prominence of portions of the colon. There is remainder of the colon is decompress ed which can accentuate the chronic wall. However, there is slight diffuse colonic wall prominence no desiree expected for the degree of decompression. There is trace free fluid in the pelvis and along the i nferior margin of the liver. No definitive focal drainable fluid collections. No significant free air or pneumatosis. ABDOMINAL WALL: Anterior abdominal incision. No associated fluid collections. RETROPERITONEUM: There is no lymphadenopathy. BLADDER: Decompressed secondary to Araya catheter. REPRODUCTIVE: Within normal limits. INGUINAL: There is no lymphadenopathy or hernia. MUSCULOSKELETAL: No focal lytic or blastic bony lesions. CONCLUSION: 1. Postsurgical features of bowel resection with left lower quadrant colostomy. Mild prominence of po rtions of the colon, likely residual. Remainder of the colon is decompressed which accentuates the co lonic wall. Mild diffuse colonic wall prominence slightly more than expected for degree of decompress ion. This may reflect resolving or developing colitis. 2. No evidence for bowel obstruction, infarction or perforation. No drainable fluid collections. 3. Mildly distended gallbladder with subtle pericholecystic fluid. No significant gallbladder wall th ickening by CT. The findings are nonspecific but can be seen with very early acute cholecystitis. HID A scan may be performed to evaluate for cystic duct patency if there is clinical concern. 4. Small bilateral pleural effusions. 5. Interval placement of bilateral double-J ureteral stents. The right ureteral stent has migrated sl ightly into the bladder with the proximal pigtail located in the proximal ureter. No significant hydr onephrosis. Noel Kelly MD on February 20, 2017 at 17:24 Board Certified Radiologist. This report was verified electronically.
--- NOTE | 2017-02-20 21:43 | HHI.PR ---
Subjective Remarks Some nausea today. Clear liquid diet in place. Pending CT when seen. No other complaints from patient. Objective Vital Signs Date Time Temp Pulse Resp B/P Pulse Ox O2 Delivery O2 Flow Rate FiO2 02/20/17 18:00 77 02/20/17 16:00 98.1 78 17 135/60 98 02/20/17 16:00 68 02/20/17 15:43 16 02/20/17 14:00 77 02/20/17 14:00 16 02/20/17 12:00 98.6 84 20 143/67 95 02/20/17 12:00 65 02/20/17 10:00 76 02/20/17 08:00 98.6 86 19 156/69 96 02/20/17 08:00 90 02/20/17 06:00 82 02/20/17 06:00 20 02/20/17 04:35 21 02/20/17 04:00 80 02/20/17 04:00 98.9 80 15 140/63 93 02/20/17 02:00 90 02/20/17 00:00 87 02/20/17 00:00 99.2 87 23 142/65 93 02/19/17 22:00 80 02/19/17 22:00 18 I/O 02/19/17 02/19/17 02/19/17 02/20/17 02/20/17 02/20/17 06:59 14:59 22:59 06:59 14:59 22:59 Intake Total 1216 ml 900 ml 936 ml 912 ml 1513 ml Output Total 725 ml 450 ml 575 ml 850 ml 1705 ml Balance 491 ml 450 ml 361 ml 62 ml -192 ml Intake Oral 240 ml 150 ml 60 ml 120 ml 130 ml IV Total 976 ml 750 ml 876 ml 792 ml 1383 ml Output Urine Total 525 ml 400 ml 550 ml 500 ml 1070 ml Stool Total 200 ml 50 ml 25 ml 350 ml 485 ml Emesis 150 ml Drainage Total 0 ml Result Diagram: 02/20/17 0417 02/20/17 0851 Procedures With Diagnosis of 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 HEAD: Normocephalic. EYES: No scleral icterus. No injection or drainage. NECK: Supple, trachea midline. No JVD or lymphadenopathy. CARDIOVASCULAR: Regular rate and rhythm without murmurs, gallops, or rubs. RESPIRATORY: Breath sounds equal bilaterally. No accessory muscle use. GASTROINTESTINAL: Abdomen soft, non-tender, nondistended. Hypoactive bowel sounds. MUSCULOSKELETAL: No cyanosis, or edema. BACK: Nontender without obvious deformity. No CVA tenderness. 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 Now status post resection of colon/bladder with ureteral stents and colostomy. Bowel Obstruction Colon Tumor S/P colectomy with ureteral stents and colostomy Procedure End Colostomy 02/15/17 Oncology following Surgeon following GI Following Araya to be in place for two weeks PRN pain treatments CT pending for today Nausea Follow for improvement PRN anti-emetics IV Hydration Consider transfer out of ICU if this improves and if CT shows stability Leukocytosis Improving Follow CBC Clindamycin and Flagyl, Levaquin HTN Stable for now Follow BP Hypocalcemia Follow calcium trends Replace if needed Oral thrush Nystatin swish and swallow. UTI Levaquin. DVT prophylaxis Lovenox. Discharge Planning Not yet ready for discharge Saul eVlázquez MD Feb 20, 2017 21:43
[2017-02-20] MEDS ORDERED: SCOPOLAMINE 1.5 MG PATCH T-DERMAL ONE (22:00)
[2017-02-21] VITALS (14 sets, daily range): BP systolic 136–162; BP diastolic 63–77; PULSE 72–96; RESP 12–17; TEMP 97.9–98.3; O2SAT 95–99
[2017-02-21] MEDS: ACETAMINOPHEN 1000 MG/100 ML VIAL IV SCH ×3 (00:26→18:14)
[2017-02-21] MEDS: PROMETHAZINE INJ 25 MG/ML VIAL IM PRN ×6 (00:26→22:03)
[2017-02-21] MEDS: SODIUM CHLOR 0.9% 1000 ML INJ 1,000 ML IV SCH ×4 (00:27→22:08)
[2017-02-21] MEDS: metroNIDAZOLE 500 MG INJ 100 ML IV SCH ×3 (03:11→18:14)
[2017-02-21] MEDS: CLINDAMYCIN INJ 600 MG in SODIUM CHLORIDE 0.9% INJ 100 ML IV SCH ×3 (03:11→20:14)
[2017-02-21] MEDS: METOPROLOL TARTRATE 5 MG/5 ML VIAL IV PUSH SCH ×4 (04:00→22:00)
[2017-02-21 05:26] LABS: HEMATOCRIT 30.8 % (35.0-46.0); MEAN CELL VOLUME 79.8 FL (80.0-100.0); MEAN CORPUSCULAR HEMOGLOBIN 25.4 PG (27.0-34.0); MEAN CORPUSCULAR HGB CONC 31.8 % (32.0-36.0); PLATELET COUNT 394 TH/MM3 (150-450); RED BLOOD COUNT 3.86 MIL/MM3 (4.00-5.30); RED CELL DISTRIBUTION WIDTH 16.7 % (11.6-17.2); REVIEW FLAG FINAL; WHITE BLOOD COUNT 16.2 TH/MM3 (4.0-11.0)
[2017-02-21 05:49] LABS: BICARBONATE 20.3 MEQ/L (21.0-32.0)
[2017-02-21] MEDS: PCA - TOTAL MG DILAUDID DELIVERED PER SHIFT SCH ×3 (06:00→22:07)
[2017-02-21 06:07] LABS: POTASSIUM 2.9 MEQ/L (3.5-5.1)
[2017-02-21] MEDS: POTASSIUM CHLORIDE 25 MEQ EFFERVESCENT TAB PO ONE ×2 (07:15→08:22)
[2017-02-21] MEDS ORDERED: POTASSIUM CHLORIDE 10 MEQ CONTROLLED RELEASE TAB PO ONE (07:45)
[2017-02-21] MEDS: POTASSIUM CHLOR 20 MEQ PREMIX 100 ML IV SCH ×2 (08:22→12:07)
[2017-02-21] MEDS: NYSTATIN SUSP 500,000 U/5 ML CUP SWISH-SWAL SCH ×4 (08:23→20:51)
[2017-02-21] MEDS: SODIUM CHLORIDE 0.9% FLUSH 10 ML FLUSH IV FLUSH SCH ×2 (08:23→20:14)
[2017-02-21] MEDS: HYDROmorphone HCL PCA 6 MG/30 ML IV SCH (08:32)
--- NOTE | 2017-02-21 09:30 | HHI.PR ---
Subjective Remarks Patient needed transfusion of packed red blood cells overnight. Nausea remains. CT from yesterday shows no pattern of small bowel obstruction. Objective Vital Signs Date Time Temp Pulse Resp B/P Pulse Ox O2 Delivery O2 Flow Rate FiO2 02/21/17 08:32 18 02/21/17 06:00 76 02/21/17 06:00 13 02/21/17 04:00 74 02/21/17 04:00 98.2 76 13 142/66 97 02/21/17 03:21 98.2 72 12 162/69 99 02/21/17 02:00 72 02/21/17 00:48 97.9 74 13 136/63 98 02/21/17 00:00 97.9 74 13 136/63 98 02/21/17 00:00 74 02/20/17 22:00 82 02/20/17 21:00 124/55 02/20/17 20:00 82 02/20/17 20:00 98.2 82 17 97 02/20/17 18:00 77 02/20/17 16:00 98.1 78 17 135/60 98 02/20/17 16:00 68 02/20/17 15:43 16 02/20/17 14:00 77 02/20/17 14:00 16 02/20/17 12:00 98.6 84 20 143/67 95 02/20/17 12:00 65 02/20/17 10:00 76 I/O 02/20/17 02/20/17 02/20/17 02/21/17 02/21/17 02/21/17 07:00 15:00 23:00 07:00 15:00 23:00 Intake Total 912 ml 1513 ml 1556 ml 1105 ml Output Total 850 ml 1705 ml 775 ml 825 ml Balance 62 ml -192 ml 781 ml 280 ml Intake Oral 120 ml 130 ml 360 ml 120 ml IV Total 792 ml 1383 ml 1196 ml 985 ml Output Urine Total 500 ml 1070 ml 550 ml 800 ml Stool Total 350 ml 485 ml 225 ml 25 ml Emesis 150 ml Result Diagram: 02/21/17 04202/21/17420 Procedures With Diagnosis of 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 HEAD: Normocephalic. EYES: No scleral icterus. No injection or drainage. NECK: Supple, trachea midline. No JVD or lymphadenopathy. CARDIOVASCULAR: Regular rate and rhythm without murmurs, gallops, or rubs. RESPIRATORY: Breath sounds equal bilaterally. No accessory muscle use. GASTROINTESTINAL: Abdomen soft, non-tender, nondistended. Hypoactive bowel sounds. MUSCULOSKELETAL: No cyanosis, or edema. BACK: Nontender without obvious deformity. No CVA tenderness. 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 Now status post resection of colon/bladder with ureteral stents and colostomy. Plan to monitor in ICU until patient is more stable and patient is cleared by surgery for transfer out of ICU. Patient transfused packed red blood cells overnight. Hemoglobins levels more stable this morning. Nausea remains and antiemetics are in place. Bowel Obstruction Colon Tumor S/P colectomy with ureteral stents and colostomy Procedure End Colostomy 02/15/17 Oncology following Surgeon following GI Following Araya to be in place for two weeks PRN pain treatments CT pending for today Acute blood loss anemia GI etiology suspected Guaiac next stool Follow H&H Nausea Follow for improvement PRN anti-emetics IV Hydration Consider transfer out of ICU if this improves and if CT shows stability Leukocytosis Improving Follow CBC Clindamycin and Flagyl, Levaquin HTN Stable for now Follow BP Hypocalcemia Follow calcium trends Replace if needed Oral thrush Nystatin swish and swallow. UTI Levaquin. DVT prophylaxis Lovenox. Discharge Planning Not yet ready for transfer out of ICU Saul Velázquez MD Feb 21, 2017 09:30
--- NOTE | 2017-02-21 11:03 | HHI.PR ---
Subjective Subjective Notes Just got cleaned up; sheets changed Feeling better today TIFFANY Del Cid at bedside Objective Vitals/I&O Vital Signs Date Time Temp Pulse Resp B/P Pulse Ox O2 Delivery O2 Flow Rate FiO2 02/21/17 08:32 18 02/21/17 06:00 76 02/21/17 04:00 98.2 142/66 97 02/18/17 20:00 Room Air 02/18/17 19:40 21 Labs Laboratory Tests Test 02/20/17 02/20/17 02/20/17 02/20/17 11:20 20:23 22:41 22:52 Urine Color LIGHT-RED Urine Turbidity CLOUDY Urine pH 6.0 Urine Specific [place] 1.019 Urine Protein 100 Urine Glucose (UA) NEG Urine Ketones 150 Urine Occult Blood LARGE Urine Nitrite NEG Urine Bilirubin NEG Urine Urobilinogen LESS THAN 2.0 Urine Leukocyte Esterase LARGE Urine RBC Urine WBC Urine Bacteria OCC Microscopic Urinalysis Comment CULTURE INDICATED Blood Type A POSITIVE A POSITIVE A POSITIVE Antibody Screen NEGATIVE Blood Bank Comment Crossmatch Leukocyte-Reduced Red Blood Cells Test 02/21/17 04:21 White Blood Count 16.2 Red Blood Count 3.86 Hemoglobin 9.8 Hematocrit 30.8 Mean Corpuscular Volume 79.8 Mean Corpuscular Hemoglobin 25.4 Mean Corpuscular Hemoglobin 31.8 Concent Red Cell Distribution Width 16.7 Platelet Count 394 Mean Platelet Volume 9.3 Sodium Level 142 Potassium Level 2.9 Chloride Level 111 Carbon Dioxide Level 20.3 Anion Gap 11 Blood Urea Nitrogen 4 Creatinine 0.40 Estimat Glomerular Filtration 166 Rate Random Glucose 111 Calcium Level 7.5 Phosphorus Level 2.5 Date/Time Procedure Status Source Growth 02/20/17 11:20 Urine Culture Received Urine Clean Catch Pending 02/17/17 14:54 Urine Culture - Final Complete Urine Catheterized Urine Pseudomonas Aeruginosa Escherichia Coli Radiology Last 48 hours Impressions Abdomen/Pelvis CT 02/15/17 0026 Signed Impressions: Service Date/Time: Wednesday, February 15, 2017 01:18 - CONCLUSION: 1. Air and fluid distention of the small bowel and colon with a discrete transition in the region of the sigmoid. Distal sigmoid and rectum are normal in caliber. 2. At the transition point, there is focal restriction of the bowel lumen with increased density. Findings could represent carcinoma. Sigmoidoscopy is recommended for further evaluation. No regional adenopathy or distant metastatic disease identified. 3. Retroverted uterus. Félix Andujar MD Chest X-Ray 02/15/17 0000 Signed Impressions: Service Date/Time: Wednesday, February 15, 2017 15:40 - CONCLUSION: 1. No acute cardiopulmonary disease. Chris López MD Abdomen X-Ray 02/15/17 0000 Signed Impressions: Service Date/Time: Wednesday, February 15, 2017 08:59 - CONCLUSION: 1. Nonspecific bowel gas pattern 2. Focal prominent dilatation of the colon which appears to be secondary to a mass in the sigmoid colon suspicious for colon cancer as noted on the recent CT scan of the abdomen and pelvis.. 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 Attending Statement patient seen at bedside doing well but slow moving needs to ambulate ostomy care Attestation The exam, history, and the medical decision-making described in the above note were completed with the assistance of the mid-level provider. I reviewed and agree with the findings presented. I attest that I had a [id number] encounter with the patient on the same day, and personally performed and documented my assessment and findings in the medical record. Nikki Light Feb 21, 2017 11:03 Ean Martines MD Mar 01, 2017 00:56
[2017-02-21] MEDS: ENOXAPARIN SODIUM 40 MG/0.4 ML SYRINGE SQ SCH (14:42)
[2017-02-21] MEDS ORDERED: PROCHLORPERAZINE INJ 10 MG/2 ML VIAL IV PUSH PRN (15:30)
--- NOTE | 2017-02-21 15:36 | HHI.GIFU ---
Subjective Remarks Resting in bed. Had significant nausea this morning. Better this afternoon- was able to tolerate the clear liquids for lunch. + Stool, colostomy bag and wound vac was recently changed. 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 Objective Vitals I&O Vital Signs Date Time Temp Pulse Resp B/P Pulse Ox O2 Delivery O2 Flow Rate FiO2 02/21/17 14:00 18 02/21/17 12:00 98.1 82 12 156/77 95 02/21/17 12:00 82 02/21/17 10:00 82 02/21/17 08:32 18 02/21/17 08:00 98.3 80 13 145/67 98 02/21/17 08:00 80 02/21/17 06:00 76 02/21/17 06:00 13 02/21/17 04:00 74 02/21/17 04:00 98.2 76 13 142/66 97 02/21/17 03:21 98.2 72 12 162/69 99 02/21/17 02:00 72 02/21/17 00:48 97.9 74 13 136/63 98 02/21/17 00:00 97.9 74 13 136/63 98 02/21/17 00:00 74 02/20/17 22:00 82 02/20/17 21:00 124/55 02/20/17 20:00 82 02/20/17 20:00 98.2 82 17 97 02/20/17 18:00 77 02/20/17 16:00 98.1 78 17 135/60 98 02/20/17 16:00 68 02/20/17 15:43 16 I/O 02/20/17 02/20/17 02/20/17 02/21/17 02/21/17 02/21/17 07:00 15:00 23:00 07:00 15:00 23:00 Intake Total 912 ml 1513 ml 1556 ml 1105 ml 240 ml Output Total 850 ml 1705 ml 775 ml 825 ml 120 ml Balance 62 ml -192 ml 781 ml 280 ml 120 ml Intake Oral 120 ml 130 ml 360 ml 120 ml 240 ml IV Total 792 ml 1383 ml 1196 ml 985 ml Output Urine Total 500 ml 1070 ml 550 ml 800 ml Stool Total 350 ml 485 ml 225 ml 25 ml 120 ml Emesis 150 ml Laboratory Laboratory Tests Test 02/20/17 02/20/17 02/20/17 02/21/17 20:23 22:41 22:52 04:21 Blood Type A POSITIVE A POSITIVE A POSITIVE Antibody Screen NEGATIVE Blood Bank Comment Crossmatch Leukocyte-Reduced Red Blood Cells White Blood Count 16.2 Red Blood Count 3.86 Hemoglobin 9.8 Hematocrit 30.8 Mean Corpuscular Volume 79.8 Mean Corpuscular Hemoglobin 25.4 Mean Corpuscular Hemoglobin 31.8 Concent Red Cell Distribution Width 16.7 Platelet Count 394 Mean Platelet Volume 9.3 Sodium Level 142 Potassium Level 2.9 Chloride Level 111 Carbon Dioxide Level 20.3 Anion Gap 11 Blood Urea Nitrogen 4 Creatinine 0.40 Estimat Glomerular Filtration 166 Rate Random Glucose 111 Calcium Level 7.5 Phosphorus Level 2.5 Date/Time Procedure Status Source Growth 02/21/17 14:00 Stool Occult Blood (EF) - Final Complete Stool Stool HEMOCCULT NEGATIVE 02/20/17 11:20 Urine Culture - Preliminary Resulted Urine Clean Catch <10,000 CFU/ML GRAM NEGATIVE CARMEN 02/17/17 14:54 Urine Culture - Final Complete Urine Catheterized Urine Pseudomonas Aeruginosa Escherichia Coli Imaging Last Impressions Abdomen/Pelvis CT 02/20/17 0000 Signed Impressions: Service Date/Time: Monday, February 20, 2017 16:57 - CONCLUSION: 1. Postsurgical features of bowel resection with left lower quadrant colostomy. Mild prominence of portions of the colon, likely residual. Remainder of the colon is decompressed which accentuates the colonic wall. Mild diffuse colonic wall prominence slightly more than expected for degree of decompression. This may reflect resolving or developing colitis. 2. No evidence for bowel obstruction, infarction or perforation. No drainable fluid collections. 3. Mildly distended gallbladder with subtle pericholecystic fluid. No significant gallbladder wall thickening by CT. The findings are nonspecific but can be seen with very early acute cholecystitis. HIDA scan may be performed to evaluate for cystic duct patency if there is clinical concern. 4. Small bilateral pleural effusions. 5. Interval placement of bilateral double-J ureteral stents. The right ureteral stent has migrated slightly into the bladder with the proximal pigtail located in the proximal ureter. No significant hydronephrosis. Noel Kelly MD Chest X-Ray 02/15/17 0000 Signed Impressions: Service Date/Time: Wednesday, February 15, 2017 15:40 - CONCLUSION: 1. No acute cardiopulmonary disease. Chris López MD Abdomen X-Ray 02/15/17 0000 Signed Impressions: Service Date/Time: Wednesday, February 15, 2017 08:59 - CONCLUSION: 1. Nonspecific bowel gas pattern 2. Focal prominent dilatation of the colon which appears to be secondary to a mass in the sigmoid colon suspicious for colon cancer as noted on the recent CT scan of the abdomen and pelvis.. Avery North MD Physical Exam HEENT: Normocephalic; atraumatic; no jaundice CHEST: CTA CARDIAC: RRR. ABDOMEN: Soft, nondistended. Diffuse tenderness. Wound vac d/i. Colostomy left side without stool- nurse states was just changed. EXTREMITIES: No clubbing, cyanosis, or edema. SKIN: Rosacea. 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 Assessment and Plan Plan ASSESSMENT: - Obstructive sigmoid cancer. Sudden onset of constipation, nausea/vomiting/ abdominal pain Saturday. CT scan of the abdomen and pelvis (02/15/17) disease revealed 1. Air and fluid distention of the small bowel and colon with a discrete transition in the region of the sigmoid. Distal sigmoid and rectum are normal in caliber. 2. At the transition point, there is focal restriction of the bowel lumen with increased density. Findings could represent carcinoma. Sigmoidoscopy is recommended for further evaluation. No regional adenopathy or distant metastatic disease identified. 3. Retroverted uterus. No known history of diverticulosis, diverticulitis. is following and has recommended endoscopic evaluation with sigmoidoscopy/colonoscopy. No decreased appetite/weight loss until Saturday. No melena/rectal bleeding. Never had complete colonoscopy. Had sigmoidoscopy about 6 years ago for hemorrhoids. No family hx of esophageal, gastric, or colorectal cancer. S/P Sigmoidoscopy (02/20/17)----> Tumor located at 18-20cm from anal verge. Unable to get scope to pass through. Multiple biopsies taken. Rectum is normal, no other polypoid lesions. Pathology invasive moderately differentiated adenocarcinoma arising in an adenomatous polyp. S/P Exploratory laparotomy, resection of sigmiod with en bloc cystectomy and partial colon sidewall resection, placement of bilateral ureter stents, primary bladder repair, primary colon repair, Hayes's procedure with end colostomy (02/15/17). Pathology colon sigmoid mass with invasive moderately differentiated adenocarcinoma, peritoneum leiomyoma. Stage III cancer. Plan is to keep mchugh for at least 2 weeks, PET scan as outpatient, and likely FOLFOX chemo as outpatient. - Abdominal pain with n/v secondary to above. 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 Tolerated clear liquids, antiemetics. - Leukocytosis, mild. 16.2 - HTN per attending. PLAN: - Diet per GS - IVF - Zofran/Phenergan prn - Monitor labs - GS following - Oncology following - Supportive care - Pt seen and examined by Dr. Nam and myself and this note is written on his behalf Kusum Villalobos Feb 21, 2017 15:36
[2017-02-21] MEDS: LEVOFLOXACIN 750 MG PREMIX INJ 150 ML IV SCH (16:38)
[2017-02-22] VITALS (12 sets, daily range): BP systolic 125–144; BP diastolic 59–67; PULSE 72–84; RESP 13–19; TEMP 98–98.4; O2SAT 96–100
[2017-02-22] MEDS: ACETAMINOPHEN 1000 MG/100 ML VIAL IV SCH ×4 (00:17→18:43)
[2017-02-22] MEDS: PROMETHAZINE INJ 25 MG/ML VIAL IM PRN ×4 (03:13→21:52)
[2017-02-22] MEDS: metroNIDAZOLE 500 MG INJ 100 ML IV SCH ×3 (03:13→18:43)
[2017-02-22] MEDS: CLINDAMYCIN INJ 600 MG in SODIUM CHLORIDE 0.9% INJ 100 ML IV SCH ×3 (03:59→22:44)
[2017-02-22] MEDS: METOPROLOL TARTRATE 5 MG/5 ML VIAL IV PUSH SCH ×4 (03:59→22:00)
[2017-02-22] MEDS: SODIUM CHLOR 0.9% 1000 ML INJ 1,000 ML IV SCH ×3 (06:01→22:46)
[2017-02-22] MEDS: PCA - TOTAL MG DILAUDID DELIVERED PER SHIFT SCH (06:01)
[2017-02-22 06:52] LABS: HEMATOCRIT 29.5 % (35.0-46.0); MEAN CELL VOLUME 78.6 FL (80.0-100.0); MEAN CORPUSCULAR HEMOGLOBIN 25.7 PG (27.0-34.0); MEAN CORPUSCULAR HGB CONC 32.7 % (32.0-36.0); PLATELET COUNT 408 TH/MM3 (150-450); RED BLOOD COUNT 3.76 MIL/MM3 (4.00-5.30); RED CELL DISTRIBUTION WIDTH 16.8 % (11.6-17.2); REVIEW FLAG FINAL; WHITE BLOOD COUNT 15.7 TH/MM3 (4.0-11.0)
[2017-02-22 07:13] LABS: BICARBONATE 22.9 MEQ/L (21.0-32.0)
[2017-02-22 07:23] LABS: POTASSIUM 2.8 MEQ/L (3.5-5.1)
[2017-02-22] MEDS: HYDROmorphone HCL PCA 6 MG/30 ML IV SCH (07:28)
[2017-02-22] MEDS: POTASSIUM CHLOR 20 MEQ PREMIX 100 ML IV SCH ×3 (08:57→23:16)
[2017-02-22] MEDS: SODIUM CHLORIDE 0.9% FLUSH 10 ML FLUSH IV FLUSH SCH ×2 (08:57→22:44)
[2017-02-22] MEDS: NYSTATIN SUSP 500,000 U/5 ML CUP SWISH-SWAL SCH ×4 (08:57→22:44)
--- NOTE | 2017-02-22 09:08 | PD.ONC.PN ---
Subjective Subjective Remarks Afebrile overnight. Very nauseated overnight. Feeling a bit better now. Patient's BUREAU DIRECTOR to be switched to morphine in an effort to improve nausea. Still having significant pain in abdomen. Objective Data Date Time Temp Pulse Resp B/P Pulse Ox O2 Delivery O2 Flow Rate FiO2 02/22/17 08:00 98.0 75 15 142/64 97 02/22/17 08:00 75 02/22/17 07:58 13 02/22/17 07:28 15 02/22/17 06:01 15 02/22/17 06:00 81 02/22/17 04:00 79 17 143/67 96 02/22/17 04:00 79 02/22/17 02:00 77 02/22/17 00:00 81 14 144/67 97 02/22/17 00:00 81 02/21/17 22:07 22 02/21/17 22:00 86 02/21/17 20:00 98.0 82 14 143/66 97 02/21/17 20:00 82 02/21/17 18:00 79 02/21/17 16:00 98.0 76 17 150/70 99 02/21/17 16:00 76 02/21/17 14:00 96 02/21/17 14:00 18 02/21/17 12:00 98.1 82 12 156/77 95 02/21/17 12:00 82 02/21/17 10:00 82 02/22/17 02/22/17 02/22/17 07:00 15:00 23:00 Intake Total 1052 ml Output Total 1495 ml Balance -443 ml Result Diagram: 02/22/17 0540 02/22/17 0540 Laboratory Results Laboratory Tests Test 02/22/17 05:40 White Blood Count 15.7 TH/MM3 Red Blood Count 3.76 MIL/MM3 Hemoglobin 9.7 GM/DL Hematocrit 29.5 % Mean Corpuscular Volume 78.6 FL Mean Corpuscular Hemoglobin 25.7 PG Mean Corpuscular Hemoglobin 32.7 % Concent Red Cell Distribution Width 16.8 % Platelet Count 408 TH/MM3 Mean Platelet Volume 9.5 FL Sodium Level 142 MEQ/L Potassium Level 2.8 MEQ/L Chloride Level 107 MEQ/L Carbon Dioxide Level 22.9 MEQ/L Anion Gap 12 MEQ/L Blood Urea Nitrogen 2 MG/DL Creatinine 0.43 MG/DL Estimat Glomerular Filtration 153 ML/MIN Rate Random Glucose 105 MG/DL Calcium Level 7.5 MG/DL Culture Results Microbiology Date/Time Procedure Status Source Growth 02/20/17 11:20 Urine Culture - Preliminary Resulted Urine Clean Catch <10,000 CFU/ML GRAM NEGATIVE CARMEN 02/21/17 14:00 Stool Occult Blood (FE) - Final Complete Stool Stool HEMOCCULT NEGATIVE Administered Medications Medications (Trade) Dose Ordered Sig/Jose E Route PRN Reason Start Time Stop Time Status Last Admin Dose Admin Sodium Chloride (NS 1000 ml Inj) 1,000 ml @ 125 mls/hr Q8H IV 02/15/17 02:49 02/22/17 06:01 Ondansetron HCl (Zofran Inj) 4 mg Q4H PRN IVP NAUSEA OR VOMITING 02/15/17 11:00 02/20/17 09:19 Sodium Chloride (NS Flush) 2 ml BID IV FLUSH 02/15/17 23:00 02/22/17 08:57 Hydromorphone HCl (Dilaudid BUREAU DIRECTOR Inj) 6 mg UNSCH IV 02/16/17 01:15 02/22/17 07:28 BUREAU DIRECTOR Dosage Infused (Pha) 1 Q8HR .XX 02/16/17 06:00 02/22/17 06:01 Benzocaine/ Menthol 1 lozenge 1 lozenge UNSCH PRN BUCCAL SORE THROAT 02/16/17 16:30 02/16/17 17:29 Metronidazole 100 ml @ 100 mls/hr Q8H IV 02/17/17 11:00 02/22/17 03:13 Clindamycin Phosphate 600 mg/ Sodium Chloride 104 ml @ 208 mls/hr Q8H IV 02/17/17 12:00 02/22/17 03:59 Levofloxacin/ Dextrose (Levaquin 750 Mg Premix Inj) 150 ml @ 100 mls/hr Q24H IV 02/17/17 16:00 02/21/17 16:38 Metoprolol Tartrate (Lopressor Inj) 5 mg Q6H IV PUSH 02/18/17 16:00 02/20/17 21:02 Nystatin (Mycostatin Liq) 5 ml QID SWISH-SWAL 02/18/17 13:00 02/22/17 08:57 Enoxaparin Sodium (Lovenox Inj) 40 mg Q24H SQ 02/18/17 14:00 02/21/17 14:42 Promethazine HCl (Phenergan Inj) 25 mg Q4H PRN IM nausea/vomiting 02/20/17 09:45 02/22/17 08:57 Acetaminophen 1000 mg 1,000 mg Q6H IV 02/21/17 13:00 02/22/17 07:26 Potassium Chloride (KCl 20 Meq Premix Inj) 100 ml @ 50 mls/hr Q2H IV 02/22/17 08:00 02/22/17 11:59 02/22/17 08:57 Objective Remarks GENERAL: Middle aged female supine in bed. SKIN: Warm and dry. HEAD: Normocephalic. EYES: No injection or drainage. NECK: Supple, trachea midline. CARDIOVASCULAR: Regular rate and rhythm RESPIRATORY: Breath sounds equal bilaterally. No accessory muscle use. GASTROINTESTINAL: Abdomen soft, bandages c/d/i, stoma site clean. tender to palpation. EXTREMITIES: No cyanosis NEUROLOGICAL: awake and alert, normal speech. moving all extremities. Assessment/Plan Problem List: (1) Mass of colon Status: Acute Plan: 02/20: plan for follow up in clinic once discharged --Obstructing large sigmoid mass most consistent with cancer. --Status post sigmoid colectomy with end colostomy. --CT ab/pelvis: no LAD or liver mets (2) Nausea Status: Acute Plan: --scheduled zofran 4mg IV q 6 --breakthrough Phenergan --likely d/t recent surgery, opiates, antibiotics, multiple factors. 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 h/o Hypertension Attending Statement c/o nausea and abd pain. Liquid stool in colostomy bag. Nausea due to narcotics. will folow. Daniela Mohan Feb 22, 2017 09:08 Demetria Parada MD Feb 22, 2017 10:42
--- NOTE | 2017-02-22 09:21 | HHI.PR ---
Subjective Remarks Hemoglobin stable overnight. Potassium did fall and replacement is occurring this morning. Patient still complains of nausea. We discussed possible etiology of nausea being narcotic. Objective Vital Signs Date Time Temp Pulse Resp B/P Pulse Ox O2 Delivery O2 Flow Rate FiO2 02/22/17 08:00 98.0 75 15 142/64 97 02/22/17 08:00 75 02/22/17 07:58 13 02/22/17 07:28 15 02/22/17 06:01 15 02/22/17 06:00 81 02/22/17 04:00 79 17 143/67 96 02/22/17 04:00 79 02/22/17 02:00 77 02/22/17 00:00 81 14 144/67 97 02/22/17 00:00 81 02/21/17 22:07 22 02/21/17 22:00 86 02/21/17 20:00 98.0 82 14 143/66 97 02/21/17 20:00 82 02/21/17 18:00 79 02/21/17 16:00 98.0 76 17 150/70 99 02/21/17 16:00 76 02/21/17 14:00 96 02/21/17 14:00 18 02/21/17 12:00 98.1 82 12 156/77 95 02/21/17 12:00 82 02/21/17 10:00 82 I/O 02/21/17 02/21/17 02/21/17 02/22/17 02/22/17 02/22/17 07:00 15:00 23:00 07:00 15:00 23:00 Intake Total 1105 ml 1784 ml 1332 ml 1052 ml Output Total 825 ml 1160 ml 850 ml 1495 ml Balance 280 ml 624 ml 482 ml -443 ml Intake Oral 120 ml 480 ml 0 ml 0 ml IV Total 985 ml 1304 ml 1332 ml 1052 ml Output Urine Total 800 ml 1000 ml 750 ml 1400 ml Stool Total 25 ml 160 ml 50 ml 45 ml Emesis 50 ml 50 ml Result Diagram: 02/22/17 0540 02/22/17 0540 Procedures With Diagnosis of 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 HEAD: Normocephalic. EYES: No scleral icterus. No injection or drainage. NECK: Supple, trachea midline. No JVD or lymphadenopathy. CARDIOVASCULAR: Regular rate and rhythm without murmurs, gallops, or rubs. RESPIRATORY: Breath sounds equal bilaterally. No accessory muscle use. GASTROINTESTINAL: Abdomen soft, non-tender, nondistended. Normal bowel sounds. MUSCULOSKELETAL: No cyanosis, or edema. BACK: Nontender without obvious deformity. No CVA tenderness. 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 Now status post resection of colon/bladder with ureteral stents and colostomy. No need for transfusion overnight. Potassium replacement necessary this morning. Nausea remains. Dilaudid TOUCH UP CARVER change to morphine TOUCH UP CARVER for potential narcotic induced nausea from Dilaudid. Bowel Obstruction Colon Tumor S/P colectomy with ureteral stents and colostomy Procedure End Colostomy 02/15/17 Oncology following Surgeon following GI Following Araya to be in place for two weeks PRN pain treatments CT pending for today Acute blood loss anemia GI etiology suspected Guaiac next stool Follow H&H Nausea Follow for improvement PRN anti-emetics IV Hydration Consider transfer out of ICU if this improves and if CT shows stability Leukocytosis Improving Follow CBC Clindamycin and Flagyl, Levaquin HTN Stable for now Follow BP Hypocalcemia Follow calcium trends Replace if needed Oral thrush Nystatin swish and swallow. UTI Levaquin. DVT prophylaxis Lovenox. Discharge Planning Not yet ready for transfer out of ICU Saul Velázquez MD Feb 22, 2017 9:21 am
[2017-02-22] MEDS ORDERED: NALOXONE HCL 0.4 MG/ML AMP IV PRN (09:30)
[2017-02-22] MEDS: MORPHINE SULFATE 30 MG/30 ML PCA IV SCH (09:55)
[2017-02-22] MEDS: ONDANSETRON HCL 4 MG/2 ML VIAL IVP SCH ×2 (12:00→17:02)
[2017-02-22] MEDS: ENOXAPARIN SODIUM 40 MG/0.4 ML SYRINGE SQ SCH (13:44)
[2017-02-22] MEDS: PCA - TOTAL MG MORPHINE DELIVERED PER SHIFT SCH ×2 (14:00→22:00)
[2017-02-22] MEDS: METOCLOPRAMIDE HCL 10 MG/2 ML VIAL IV PUSH SCH ×2 (15:38→22:46)
[2017-02-22] MEDS: LEVOFLOXACIN 750 MG PREMIX INJ 150 ML IV SCH (15:39)
--- NOTE | 2017-02-22 17:20 | HHI.PR ---
Subjective Subjective Notes Resting in bed Feels better today; was able to wash her hair Objective Vitals/I&O Vital Signs Date Time Temp Pulse Resp B/P Pulse Ox O2 Delivery O2 Flow Rate FiO2 02/22/17 16:00 75 02/22/17 16:00 98.0 19 138/62 99 02/18/17 20:00 Room Air 02/18/17 19:40 21 Labs Laboratory Tests Test 02/22/17 05:40 White Blood Count 15.7 Red Blood Count 3.76 Hemoglobin 9.7 Hematocrit 29.5 Mean Corpuscular Volume 78.6 Mean Corpuscular Hemoglobin 25.7 Mean Corpuscular Hemoglobin 32.7 Concent Red Cell Distribution Width 16.8 Platelet Count 408 Mean Platelet Volume 9.5 Sodium Level 142 Potassium Level 2.8 Chloride Level 107 Carbon Dioxide Level 22.9 Anion Gap 12 Blood Urea Nitrogen 2 Creatinine 0.43 Estimat Glomerular Filtration 153 Rate Random Glucose 105 Calcium Level 7.5 Date/Time Procedure Status Source Growth 02/21/17 14:00 Stool Occult Blood (FE) - Final Complete Stool Stool HEMOCCULT NEGATIVE 02/20/17 11:20 Urine Culture - Final Complete Urine Clean Catch <10,000 CFU/ML GRAM NEGATIVE CARMEN Radiology Last 48 hours Impressions Abdomen/Pelvis CT 02/15/17 0026 Signed Impressions: Service Date/Time: Wednesday, February 15, 2017 01:18 - CONCLUSION: 1. Air and fluid distention of the small bowel and colon with a discrete transition in the region of the sigmoid. Distal sigmoid and rectum are normal in caliber. 2. At the transition point, there is focal restriction of the bowel lumen with increased density. Findings could represent carcinoma. Sigmoidoscopy is recommended for further evaluation. No regional adenopathy or distant metastatic disease identified. 3. Retroverted uterus. Félix Andujar MD Chest X-Ray 02/15/17 0000 Signed Impressions: Service Date/Time: Wednesday, February 15, 2017 15:40 - CONCLUSION: 1. No acute cardiopulmonary disease. Chris López MD Abdomen X-Ray 02/15/17 0000 Signed Impressions: Service Date/Time: Wednesday, February 15, 2017 08:59 - CONCLUSION: 1. Nonspecific bowel gas pattern 2. Focal prominent dilatation of the colon which appears to be secondary to a mass in the sigmoid colon suspicious for colon cancer as noted on the recent CT scan of the abdomen and pelvis.. 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 Nikki Light Feb 22, 2017 17:20
[2017-02-23 00:19] VITALS: BP 138/63; PULSE 90; RESP 18; TEMP 98.5; O2SAT 96
[2017-02-23] MEDS: ONDANSETRON HCL 4 MG/2 ML VIAL IVP SCH ×5 (00:53→23:52)
[2017-02-23] MEDS: POTASSIUM CHLOR 20 MEQ PREMIX 100 ML IV SCH ×3 (00:54→17:08)
[2017-02-23] MEDS: ACETAMINOPHEN 1000 MG/100 ML VIAL IV SCH ×5 (00:58→23:52)
[2017-02-23 04:21] VITALS: BP 131/80; PULSE 88; RESP 18; TEMP 99.2; O2SAT 97
[2017-02-23] MEDS: CLINDAMYCIN INJ 600 MG in SODIUM CHLORIDE 0.9% INJ 100 ML IV SCH (05:58)
[2017-02-23] MEDS: PCA - TOTAL MG MORPHINE DELIVERED PER SHIFT SCH ×3 (05:58→21:11)
[2017-02-23] MEDS: METOCLOPRAMIDE HCL 10 MG/2 ML VIAL IV PUSH SCH ×3 (06:00→22:04)
[2017-02-23] MEDS: metroNIDAZOLE 500 MG INJ 100 ML IV SCH ×3 (06:00→21:10)
[2017-02-23] MEDS: SODIUM CHLOR 0.9% 1000 ML INJ 1,000 ML IV SCH ×2 (06:01→15:16)
[2017-02-23 08:00] VITALS: BP 134/68; PULSE 90; RESP 16; TEMP 99.5; O2SAT 97
[2017-02-23 08:05] LABS: HEMATOCRIT 29.4 % (35.0-46.0); MEAN CELL VOLUME 80.4 FL (80.0-100.0); MEAN CORPUSCULAR HEMOGLOBIN 25.6 PG (27.0-34.0); MEAN CORPUSCULAR HGB CONC 31.9 % (32.0-36.0); PLATELET COUNT 453 TH/MM3 (150-450); RED BLOOD COUNT 3.66 MIL/MM3 (4.00-5.30); RED CELL DISTRIBUTION WIDTH 16.6 % (11.6-17.2); REVIEW FLAG FINAL; WHITE BLOOD COUNT 14.3 TH/MM3 (4.0-11.0)
[2017-02-23 08:27] LABS: BICARBONATE 24.9 MEQ/L (21.0-32.0); POTASSIUM 3.2 MEQ/L (3.5-5.1)
[2017-02-23] MEDS: SODIUM CHLORIDE 0.9% FLUSH 10 ML FLUSH IV FLUSH SCH ×2 (08:45→21:00)
[2017-02-23] MEDS: NYSTATIN SUSP 500,000 U/5 ML CUP SWISH-SWAL SCH ×4 (08:45→21:11)
[2017-02-23] MEDS: NITROFURANTOIN MONOHYD MACROCR 100 MG CAP PO SCH ×2 (08:53→18:44)
[2017-02-23] MEDS: LACTOBACILLUS ACIDOPHILUS TAB PO SCH ×3 (08:53→18:44)
[2017-02-23 09:04] LABS: CALCIUM-PROTEIN CORRECTED 8.4 MG/DL (8.5-10.1)
[2017-02-23] MEDS ORDERED: POTASSIUM CHLORIDE 10 MEQ CONTROLLED RELEASE TAB PO ONE (11:30)
[2017-02-23 12:00] VITALS: BP 122/65; PULSE 93; RESP 17; TEMP 98.8; O2SAT 95
[2017-02-23] MEDS: SCOPOLAMINE 1.5 MG PATCH T-DERMAL SCH (13:00)
--- NOTE | 2017-02-23 13:04 | HHI.PR ---
Subjective Subjective Notes Not much appetite on full liquids; would like to try solid foods. Not much pain; inquired about findings during procedure Objective Vitals/I&O Vital Signs Date Time Temp Pulse Resp B/P Pulse Ox O2 Delivery O2 Flow Rate FiO2 02/23/17 12:00 98.8 93 17 122/65 95 Labs Laboratory Tests Test 02/22/17 02/23/17 20:14 06:43 Potassium Level 2.8 3.2 White Blood Count 14.3 Red Blood Count 3.66 Hemoglobin 9.4 Hematocrit 29.4 Mean Corpuscular Volume 80.4 Mean Corpuscular Hemoglobin 25.6 Mean Corpuscular Hemoglobin 31.9 Concent Red Cell Distribution Width 16.6 Platelet Count 453 Mean Platelet Volume 8.5 Sodium Level 141 Chloride Level 106 Carbon Dioxide Level 24.9 Anion Gap 10 Blood Urea Nitrogen 2 Creatinine 0.41 Estimat Glomerular Filtration 162 Rate Random Glucose 107 Calcium Level 7.3 Protein Corrected Calcium 8.4 Total Protein 5.1 Date/Time Procedure Status Source Growth 02/21/17 14:00 Stool Occult Blood (FE) - Final Complete Stool Stool HEMOCCULT NEGATIVE 02/20/17 11:20 Urine Culture - Final Complete Urine Clean Catch <10,000 CFU/ML GRAM NEGATIVE [facility] Radiology Last 48 hours Impressions Abdomen/Pelvis CT 02/15/17 0026 Signed Impressions: Service Date/Time: Wednesday, February 15, 2017 01:18 - CONCLUSION: 1. Air and fluid distention of the small bowel and colon with a discrete transition in the region of the sigmoid. Distal sigmoid and rectum are normal in caliber. 2. At the transition point, there is focal restriction of the bowel lumen with increased density. Findings could represent carcinoma. Sigmoidoscopy is recommended for further evaluation. No regional adenopathy or distant metastatic disease identified. 3. Retroverted uterus. Félix Andujar MD Chest X-Ray 02/15/17 0000 Signed Impressions: Service Date/Time: Wednesday, February 15, 2017 15:40 - CONCLUSION: 1. No acute cardiopulmonary disease. Chris López MD Abdomen X-Ray 02/15/17 0000 Signed Impressions: Service Date/Time: Wednesday, February 15, 2017 08:59 - CONCLUSION: 1. Nonspecific bowel gas pattern 2. Focal prominent dilatation of the colon which appears to be secondary to a mass in the sigmoid colon suspicious for colon cancer as noted on the recent CT scan of the abdomen and pelvis.. Avery North MD Lungs: Clear Abdomen: Non-distended, Non-tender Narrative Exam Incision with Provena dressing in place; some purulent drainage present in tubing No erythema on skin Colostomy with substantial output in bag A/P Problem List: (1) Small bowel obstruction (2) HTN (hypertension) (3) Bowel obstruction (4) Mass of colon (5) Nausea Assessment and Plan Assessment and Plan 56 year old female POD8 ex-lap; resection of sigmoid hemicolectomy en block with bladder and partial colon side wall;placement of ureteral stens with primary bladder repair; primary colon repair; Krueger's procedure with end colostomy Nausea better -Added Reglan -Advance to regular diet -Continue IS -OOB and mobilize; needs to OOB -Medical Oncology following -Continue Lovenox -SKAGGS MUST REMAIN IN PLACE FOR 2 WEEKS!!!! Problem Qualifiers (1) Bowel obstruction: Qualified Code: K56.69 - Other specified intestinal obstruction Jakob Son MD Feb 23, 2017 13:04
--- NOTE | 2017-02-23 13:26 | HHI.PR ---
Subjective Remarks Nausea improved with change to morphine. Some nausea remains. She has no drop in her hemoglobin. Potassium level is low but not as low as prior days. Objective Vital Signs Date Time Temp Pulse Resp B/P Pulse Ox O2 Delivery O2 Flow Rate FiO2 02/23/17 12:00 98.8 93 17 122/65 95 02/23/17 08:00 99.5 90 16 134/68 97 02/23/17 05:58 18 02/23/17 04:21 99.2 88 18 131/80 97 02/23/17 00:19 98.5 90 18 138/63 96 02/22/17 22:00 22 02/22/17 20:55 98.4 81 17 130/59 96 02/22/17 20:00 81 02/22/17 20:00 98.2 81 19 132/64 99 02/22/17 18:00 76 02/22/17 16:00 75 02/22/17 16:00 98.0 74 19 138/62 99 02/22/17 14:00 84 02/22/17 14:00 18 I/O 02/22/17 02/22/17 02/22/17 02/23/17 02/23/17 02/23/17 06:59 14:59 22:59 06:59 14:59 22:59 Intake Total 1052 ml 1334 ml 1580 ml 280 ml Output Total 1495 ml 1050 ml 1000 ml 2300 ml Balance -443 ml 284 ml 580 ml -2020 ml Intake Oral 0 ml 400 ml 280 ml 280 ml IV Total 1052 ml 934 ml 1300 ml Output Urine Total 1400 ml 850 ml 1000 ml 2000 ml Stool Total 45 ml 200 ml 0 ml 300 ml Emesis 50 ml Drainage Total 0 ml Result Diagram: 02/23/17 0643 02/23/17 0643 Procedures With Diagnosis of 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 HEAD: Normocephalic. EYES: No scleral icterus. No injection or drainage. NECK: Supple, trachea midline. No JVD or lymphadenopathy. CARDIOVASCULAR: Regular rate and rhythm without murmurs, gallops, or rubs. RESPIRATORY: Breath sounds equal bilaterally. No accessory muscle use. GASTROINTESTINAL: Abdomen soft, non-tender, nondistended. Normal bowel sounds. MUSCULOSKELETAL: No cyanosis, or edema. BACK: Nontender without obvious deformity. No CVA tenderness. 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 Now status post resection of colon/bladder with ureteral stents and colostomy. Hypokalemia present this morning and replacements provided. We will wean IV hydration and monitor potassium levels as a treatment. She has better by mouth intake with decrease in nausea after changed from Dilaudid to morphine. Scopolamine patch renewed as a treatment for her nausea as she says this works best. Bowel Obstruction Colon Tumor S/P colectomy with ureteral stents and colostomy Procedure End Colostomy 02/15/17 Oncology following Surgeon following GI Following Araya to be in place for two weeks PRN pain treatments CT pending for today Acute blood loss anemia GI etiology suspected Guaiac next stool Follow H&H Nausea Follow for improvement PRN anti-emetics IV Hydration Leukocytosis Improving Follow CBC Clindamycin and Flagyl, Levaquin HTN Stable for now Follow BP Hypocalcemia Follow calcium trends Replace if needed Oral thrush Nystatin swish and swallow. UTI Levaquin. DVT prophylaxis Lovenox. Discharge Planning Not yet ready for transfer out of ICU Saul Velázquez MD Feb 23, 2017 13:26
[2017-02-23] MEDS ORDERED: POTASSIUM CHLORIDE 20 MEQ CONTROLLED RELEASE TAB PO ONE (13:30)
[2017-02-23] MEDS ORDERED: POTASSIUM CHLOR 20 MEQ PREMIX 100 ML IV SCH (14:00)
[2017-02-23] MEDS: ENOXAPARIN SODIUM 40 MG/0.4 ML SYRINGE SQ SCH (15:14)
[2017-02-23 16:00] VITALS: BP 124/58; PULSE 97; RESP 18; TEMP 98.9; O2SAT 96
[2017-02-23] MEDS: LEVOFLOXACIN 750 MG PREMIX INJ 150 ML IV SCH (17:09)
[2017-02-23 17:21] LABS: BACTERIA, URINE RARE /hpf; BLOOD, URINE MOD (NEG); GLUCOSE,URINE NEG (NEG); HYALINE CAST, URINE 3 /lpf (RARE); KETONE, URINE NEG (NEG); MUCUS URINE FEW /lpf (OCC); NITRITE,URINE NEG (NEG); PH, URINE 6.5 (5.0-8.5); URINE COLOR YELLOW (YELLW/STRAW)
[2017-02-23 17:23] LABS: COMMENT (UR) CATH-CULTURE IND; CULTURE IF INDICATED CATH CULTURE IND
[2017-02-23] MEDS: PROMETHAZINE INJ 25 MG/ML VIAL IM PRN (19:29)
[2017-02-23 20:00] VITALS: BP 132/60; PULSE 79; RESP 19; TEMP 98.8; O2SAT 95
[2017-02-23] MEDS: MORPHINE SULFATE 30 MG/30 ML PCA IV SCH (22:11)
[2017-02-24 00:04] VITALS: BP 135/72; PULSE 82; RESP 19; TEMP 98.7; O2SAT 96
[2017-02-24 04:00] VITALS: BP 137/62; PULSE 88; RESP 18; TEMP 96.6; O2SAT 97
[2017-02-24] MEDS: SODIUM CHLOR 0.9% 1000 ML INJ 1,000 ML IV SCH ×2 (04:02→17:31)
[2017-02-24] MEDS: PCA - TOTAL MG MORPHINE DELIVERED PER SHIFT SCH ×3 (04:03→20:58)
[2017-02-24] MEDS: metroNIDAZOLE 500 MG INJ 100 ML IV SCH ×3 (04:03→17:40)
[2017-02-24] MEDS: ONDANSETRON HCL 4 MG/2 ML VIAL IVP SCH ×4 (04:07→22:49)
[2017-02-24] MEDS: METOCLOPRAMIDE HCL 10 MG/2 ML VIAL IV PUSH SCH ×3 (04:08→20:57)
[2017-02-24 06:08] LABS: BICARBONATE 28.2 MEQ/L (21.0-32.0)
[2017-02-24 06:20] LABS: CALCIUM-PROTEIN CORRECTED 8.3 MG/DL (8.5-10.1)
[2017-02-24] MEDS: ACETAMINOPHEN 1000 MG/100 ML VIAL IV SCH ×3 (07:30→18:57)
[2017-02-24 08:00] VITALS: BP 145/65; PULSE 88; RESP 18; TEMP 96.8; O2SAT 96
[2017-02-24] MEDS: LACTOBACILLUS ACIDOPHILUS TAB PO SCH ×3 (08:32→17:29)
[2017-02-24] MEDS: POTASSIUM CHLOR 20 MEQ PREMIX 100 ML IV SCH ×2 (08:32→12:15)
[2017-02-24] MEDS: NITROFURANTOIN MONOHYD MACROCR 100 MG CAP PO SCH ×2 (08:32→17:31)
[2017-02-24] MEDS: SODIUM CHLORIDE 0.9% FLUSH 10 ML FLUSH IV FLUSH SCH ×2 (08:32→21:04)
[2017-02-24] MEDS: NYSTATIN SUSP 500,000 U/5 ML CUP SWISH-SWAL SCH ×4 (08:33→20:57)
[2017-02-24 12:00] VITALS: BP 120/61; PULSE 86; RESP 18; TEMP 98; O2SAT 96
[2017-02-24] MEDS: ENOXAPARIN SODIUM 40 MG/0.4 ML SYRINGE SQ SCH (13:46)
--- NOTE | 2017-02-24 15:08 | HHI.PR ---
Subjective Remarks Improved appetite. Patient tolerating full liquid. She requests upgraded to soft diet. Potassium low this morning and replacement is provided. Downward trend in leukocytosis. Objective Vital Signs Date Time Temp Pulse Resp B/P Pulse Ox O2 Delivery O2 Flow Rate FiO2 02/24/17 12:00 98.0 86 18 120/61 96 02/24/17 08:32 16 02/24/17 08:00 96.8 88 18 145/65 96 02/24/17 04:03 18 02/24/17 04:00 96.6 88 18 137/62 97 02/24/17 00:04 98.7 82 19 135/72 96 02/23/17 22:11 18 02/23/17 21:11 18 02/23/17 20:00 98.8 79 19 132/60 95 02/23/17 16:00 98.9 97 18 124/58 96 I/O 02/23/17 02/23/17 02/23/17 02/24/17 02/24/17 02/24/17 07:00 15:00 23:00 07:00 15:00 23:00 Intake Total 280 ml 875 ml 814 ml 877 ml Output Total 2300 ml 500 ml 2600 ml Balance -2020 ml 875 ml 314 ml -1723 ml Intake Oral 280 ml 60 ml 120 ml IV Total 875 ml 754 ml 757 ml Output Urine Total 2000 ml 400 ml 2500 ml Stool Total 300 ml 100 ml 100 ml Result Diagram: 02/23/17 0643 02/24/17 0535 Procedures With Diagnosis of 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 HEAD: Normocephalic. EYES: No scleral icterus. No injection or drainage. NECK: Supple, trachea midline. No JVD or lymphadenopathy. CARDIOVASCULAR: Regular rate and rhythm without murmurs, gallops, or rubs. RESPIRATORY: Breath sounds equal bilaterally. No accessory muscle use. GASTROINTESTINAL: Abdomen soft, non-tender, nondistended. Normal bowel sounds. MUSCULOSKELETAL: No cyanosis, or edema. BACK: Nontender without obvious deformity. No CVA tenderness. 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 Now status post resection of colon/bladder with ureteral stents and colostomy. Hypokalemia present this morning and replacement provided. Degree of hypokalemia is less than compared to prior days. Hypocalcemia is present but should improve with increase in diet. Patient requests increase in diet and is upgraded from a full liquid to soft diet at this time. Nausea is now minimized. Bowel Obstruction Colon Tumor S/P colectomy with ureteral stents and colostomy Procedure End Colostomy 02/15/17 Oncology following Surgeon following GI Following Araya to be in place for two weeks PRN pain treatments CT pending for today Acute blood loss anemia GI etiology suspected Guaiac next stool Follow H&H Nausea Follow for improvement PRN anti-emetics IV Hydration Leukocytosis Improving Follow CBC Clindamycin and Flagyl, Levaquin HTN Stable for now Follow BP Hypocalcemia Follow calcium trends Replace if needed Oral thrush Nystatin swish and swallow. UTI Levaquin. DVT prophylaxis Lovenox. Discharge Planning Not yet ready for transfer out of ICU Saul Velázquez MD Feb 24, 2017 15:08
[2017-02-24 16:00] VITALS: BP 117/54; PULSE 90; RESP 20; TEMP 98.1; O2SAT 96
--- NOTE | 2017-02-24 17:07 | HHI.PR ---
Subjective Subjective Notes DAILY PROGRESS NOTE FOR SURGICAL ATTENDING, DR. ZANE MCCAULEY Patient says he feels better Less nausea Objective Vitals/I&O Vital Signs Date Time Temp Pulse Resp B/P Pulse Ox O2 Delivery O2 Flow Rate FiO2 02/24/17 16:00 98.1 90 20 117/54 96 Labs Laboratory Tests Test 02/24/17 05:35 Sodium Level 140 Potassium Level 3.0 Chloride Level 105 Carbon Dioxide Level 28.2 Anion Gap 7 Blood Urea Nitrogen 3 Creatinine 0.45 Estimat Glomerular Filtration 145 Rate Random Glucose 116 Calcium Level 7.3 Protein Corrected Calcium 8.3 Total Protein 5.2 Date/Time Procedure Status Source Growth 02/23/17 15:30 Urine Culture - Preliminary Resulted Urine Clean Catch NO GROWTH IN 24 HOURS. 02/21/17 14:00 Stool Occult Blood (FE) - Final Complete Stool Stool HEMOCCULT NEGATIVE 02/20/17 11:20 Urine Culture - Final Complete Urine Clean Catch <10,000 CFU/ML GRAM NEGATIVE [facility] Radiology Last Impressions Abdomen/Pelvis CT 02/20/17 0000 Signed Impressions: Service Date/Time: Monday, February 20, 2017 16:57 - CONCLUSION: 1. Postsurgical features of bowel resection with left lower quadrant colostomy. Mild prominence of portions of the colon, likely residual. Remainder of the colon is decompressed which accentuates the colonic wall. Mild diffuse colonic wall prominence slightly more than expected for degree of decompression. This may reflect resolving or developing colitis. 2. No evidence for bowel obstruction, infarction or perforation. No drainable fluid collections. 3. Mildly distended gallbladder with subtle pericholecystic fluid. No significant gallbladder wall thickening by CT. The findings are nonspecific but can be seen with very early acute cholecystitis. HIDA scan may be performed to evaluate for cystic duct patency if there is clinical concern. 4. Small bilateral pleural effusions. 5. Interval placement of bilateral double-J ureteral stents. The right ureteral stent has migrated slightly into the bladder with the proximal pigtail located in the proximal ureter. No significant hydronephrosis. Noel Kelly MD Chest X-Ray 02/15/17 0000 Signed Impressions: Service Date/Time: Wednesday, February 15, 2017 15:40 - CONCLUSION: 1. No acute cardiopulmonary disease. Chris López MD Abdomen X-Ray 02/15/17 0000 Signed Impressions: Service Date/Time: Wednesday, February 15, 2017 08:59 - CONCLUSION: 1. Nonspecific bowel gas pattern 2. Focal prominent dilatation of the colon which appears to be secondary to a mass in the sigmoid colon suspicious for colon cancer as noted on the recent CT scan of the abdomen and pelvis.. Avery North MD Cardiovascular: Regular Lungs: Clear Abdomen: Post-op tenderness Narrative Exam ostomy functional A/P Problem List: (1) Mass of colon (2) Bowel obstruction (3) Small bowel obstruction (4) HTN (hypertension) (5) Nausea Assessment and Plan 56 year old female POD8 ex-lap; resection of sigmoid hemicolectomy en block with bladder and partial colon side wall;placement of ureteral stens with primary bladder repair; primary colon repair; Krueger's procedure with end colostomy Nausea better after stopping Dilaudid -Advance to regular diet -Continue IS -OOB and mobilize; needs to OOB -Medical Oncology following -Continue Lovenox -SKAGGS MUST REMAIN IN PLACE FOR 2 WEEKS!!!! Problem Qualifiers (1) Bowel obstruction: Qualified Code: K56.69 - Other specified intestinal obstruction (2) HTN (hypertension): Qualified Code: I10 - Essential hypertension Zane Mccauley MD Feb 24, 2017 17:07
[2017-02-24] MEDS: LEVOFLOXACIN 750 MG PREMIX INJ 150 ML IV SCH (17:30)
[2017-02-24 20:00] VITALS: BP 123/56; PULSE 84; RESP 20; TEMP 98.9; O2SAT 96
[2017-02-24] MEDS: PROMETHAZINE INJ 25 MG/ML VIAL IM PRN (22:49)
[2017-02-25] VITALS: BP 131/63; PULSE 88; RESP 21; TEMP 97.3; O2SAT 96
[2017-02-25] MEDS: ACETAMINOPHEN 1000 MG/100 ML VIAL IV SCH ×4 (00:48→17:40)
[2017-02-25] MEDS: SODIUM CHLOR 0.9% 1000 ML INJ 1,000 ML IV SCH ×3 (03:33→22:41)
[2017-02-25] MEDS: metroNIDAZOLE 500 MG INJ 100 ML IV SCH ×3 (03:33→17:39)
[2017-02-25] MEDS: ONDANSETRON HCL 4 MG/2 ML VIAL IVP SCH ×3 (05:15→16:23)
[2017-02-25] MEDS: METOCLOPRAMIDE HCL 10 MG/2 ML VIAL IV PUSH SCH ×3 (05:15→20:10)
[2017-02-25] MEDS: PCA - TOTAL MG MORPHINE DELIVERED PER SHIFT SCH ×3 (05:16→22:00)
[2017-02-25] MEDS: MORPHINE SULFATE 30 MG/30 ML PCA IV SCH ×2 (07:41→19:54)
[2017-02-25] MEDS: LACTOBACILLUS ACIDOPHILUS TAB PO SCH ×3 (07:45→16:24)
[2017-02-25] MEDS: SODIUM CHLORIDE 0.9% FLUSH 10 ML FLUSH IV FLUSH SCH ×2 (07:45→21:00)
[2017-02-25] MEDS: NITROFURANTOIN MONOHYD MACROCR 100 MG CAP PO SCH ×2 (07:45→16:24)
[2017-02-25] MEDS: NYSTATIN SUSP 500,000 U/5 ML CUP SWISH-SWAL SCH ×4 (07:45→20:09)
[2017-02-25 08:00] VITALS: BP 129/59; PULSE 82; RESP 17; TEMP 98.5; O2SAT 94
--- NOTE | 2017-02-25 11:35 | PD.ONC.PN ---
Subjective Subjective Remarks Afebrile overnight. Patient seen at 9AM. About to take sponge bath. Resting comfortably. States nausea significantly improved, as well as pain. Objective Data Date Time Temp Pulse Resp B/P Pulse Ox O2 Delivery O2 Flow Rate FiO2 02/25/17 08:00 98.5 82 17 129/59 94 02/25/17 05:16 19 02/25/17 00:00 97.3 88 21 131/63 96 02/24/17 20:58 22 02/24/17 20:00 98.9 84 20 123/56 96 02/24/17 16:00 98.1 90 20 117/54 96 02/24/17 14:14 16 02/24/17 14:00 18 02/24/17 12:00 98.0 86 18 120/61 96 02/25/17 02/25/17 02/25/17 07:00 15:00 23:00 Intake Total 940 ml Output Total 2900 ml Balance -1960 ml Result Diagram: 02/23/17 0643 02/24/17 0535 Culture Results Microbiology Date/Time Procedure Status Source Growth 02/23/17 15:30 Urine Culture - Preliminary Resulted Urine Clean Catch NO GROWTH IN 24 HOURS. Administered Medications Medications (Trade) Dose Ordered Sig/Jose E Route PRN Reason Start Time Stop Time Status Last Admin Dose Admin Sodium Chloride (NS 1000 ml Inj) 1,000 ml @ 83 mls/hr Q12H3M IV 02/15/17 02:49 02/25/17 03:33 Sodium Chloride (NS Flush) 2 ml BID IV FLUSH 02/15/17 23:00 02/24/17 21:04 Benzocaine/ Menthol 1 lozenge 1 lozenge UNSCH PRN BUCCAL SORE THROAT 02/16/17 16:30 02/16/17 17:29 Metronidazole 100 ml @ 100 mls/hr Q8H IV 02/17/17 11:00 02/25/17 03:33 Levofloxacin/ Dextrose (Levaquin 750 Mg Premix Inj) 150 ml @ 100 mls/hr Q24H IV 02/17/17 16:00 02/24/17 17:30 Nystatin (Mycostatin Liq) 5 ml QID SWISH-SWAL 02/18/17 13:00 02/25/17 07:45 Enoxaparin Sodium (Lovenox Inj) 40 mg Q24H SQ 02/18/17 14:00 02/24/17 13:46 Promethazine HCl (Phenergan Inj) 25 mg Q4H PRN IM nausea/vomiting 02/20/17 09:45 02/24/17 22:49 Acetaminophen (Ofirmev Inj) 1,000 mg Q6H IV 02/21/17 13:00 02/25/17 05:16 Ondansetron HCl (Zofran Inj) 4 mg Q6HR IVP 02/22/17 12:00 02/25/17 05:15 Morphine Sulfate (Morphine 1 Mg/ ml FURNACE LOADER) 30 mg UNSCH IV 02/22/17 09:30 02/25/17 07:41 FURNACE LOADER Dosage Infused (Pha) 1 Q8HR .XX 02/22/17 14:00 02/25/17 05:16 Metoclopramide HCl (Reglan Inj) 10 mg Q8HR IV PUSH 02/22/17 14:45 02/25/17 05:15 Nitrofurantoin Macrocrystals (Macrobid) 100 mg BIDPC PO 02/23/17 09:00 02/25/17 07:45 Lactobacillus Acidophilus (Lactinex) 1 tab TID PO 02/23/17 09:00 02/25/17 07:45 Scopolamine (Transderm-Scop 1.5 Mg Patch.72 Hr) 1 patch Q3D T-DERMAL 02/23/17 13:00 02/23/17 13:00 Objective Remarks GENERAL: Middle aged female upright in bed SKIN: Warm and dry. HEAD: Normocephalic. EYES: No injection or drainage. NECK: Supple, trachea midline. CARDIOVASCULAR: Regular rate and rhythm RESPIRATORY: Breath sounds equal bilaterally. No accessory muscle use. GASTROINTESTINAL: Abdomen soft, mildly tender. stoma site clean. bandages c/d/i EXTREMITIES: No cyanosis NEUROLOGICAL: aox3. normal speech. moving all extremities. Assessment/Plan Problem List: (1) Mass of colon Status: Acute Plan: 02/21: will arrange follow up in clinic in 2 weeks and plan for chemotherapy 4 weeks post surgery --Obstructing large sigmoid mass most consistent with cancer. --Status post sigmoid colectomy with end colostomy. --CT ab/pelvis: no LAD or liver mets (2) Nausea Status: Acute Plan: improving --scheduled zofran 4mg IV q 6 --breakthrough Phenergan --likely d/t recent surgery, opiates, antibiotics, multiple factors. 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 h/o Hypertension Attending Statement Nausea has almost resolved since the FURNACE LOADER change to morphine Abdominal pain is also under control Recommend transition to oral narcotic from the FURNACE LOADER pump Chemotherapy As outpatient We will follow Daniela Mohan Feb 25, 2017 11:35 Demetria Parada MD Feb 25, 2017 22:49
[2017-02-25 12:00] VITALS: BP 127/59; PULSE 88; RESP 18; TEMP 98.6; O2SAT 96
[2017-02-25] MEDS: ENOXAPARIN SODIUM 40 MG/0.4 ML SYRINGE SQ SCH (13:53)
--- NOTE | 2017-02-25 14:29 | HHI.PR ---
Subjective Subjective Notes Resting in bed Feels the best she has felt since admission Objective Vitals/I&O Vital Signs Date Time Temp Pulse Resp B/P Pulse Ox O2 Delivery O2 Flow Rate FiO2 02/25/17 12:00 98.6 88 18 127/59 96 Labs Date/Time Procedure Status Source Growth 02/23/17 15:30 Urine Culture - Final Complete Urine Clean Catch NO GROWTH IN 48 HOURS. 02/21/17 14:00 Stool Occult Blood (FE) - Final Complete Stool Stool HEMOCCULT NEGATIVE Radiology Last Impressions Abdomen/Pelvis CT 02/20/17 0000 Signed Impressions: Service Date/Time: Monday, February 20, 2017 16:57 - CONCLUSION: 1. Postsurgical features of bowel resection with left lower quadrant colostomy. Mild prominence of portions of the colon, likely residual. Remainder of the colon is decompressed which accentuates the colonic wall. Mild diffuse colonic wall prominence slightly more than expected for degree of decompression. This may reflect resolving or developing colitis. 2. No evidence for bowel obstruction, infarction or perforation. No drainable fluid collections. 3. Mildly distended gallbladder with subtle pericholecystic fluid. No significant gallbladder wall thickening by CT. The findings are nonspecific but can be seen with very early acute cholecystitis. HIDA scan may be performed to evaluate for cystic duct patency if there is clinical concern. 4. Small bilateral pleural effusions. 5. Interval placement of bilateral double-J ureteral stents. The right ureteral stent has migrated slightly into the bladder with the proximal pigtail located in the proximal ureter. No significant hydronephrosis. Noel Kelly MD Chest X-Ray 02/15/17 0000 Signed Impressions: Service Date/Time: Wednesday, February 15, 2017 15:40 - CONCLUSION: 1. No acute cardiopulmonary disease. Chris López MD Abdomen X-Ray 02/15/17 0000 Signed Impressions: Service Date/Time: Wednesday, February 15, 2017 08:59 - CONCLUSION: 1. Nonspecific bowel gas pattern 2. Focal prominent dilatation of the colon which appears to be secondary to a mass in the sigmoid colon suspicious for colon cancer as noted on the recent CT scan of the abdomen and pelvis.. Avery North MD Cardiovascular: Regular Lungs: Clear Abdomen: Other (Prevena dressing in place with large amount of drainage in canister; abdomen soft; minimally tender ) Extremities: Other (moderate amount of generalized edema ) Narrative Exam [place] in place---yellow; sediment A/P Problem List: (1) Mass of colon (2) Bowel obstruction (3) Small bowel obstruction (4) HTN (hypertension) (5) Nausea Assessment and Plan 56 year old female POD10 ex-lap; resection of sigmoid hemicolectomy en block with bladder and partial colon side wall;placement of ureteral stens with primary bladder repair; primary colon repair; Krueger's procedure with end colostomy -Labs pending ---will review -Zofran/Phenergan for nausea -Reglan -IV Tylenol for pain -Continue [employer] -Tolerating regular diet -Continue IS -OOB and mobilize; needs to OOB to the chair -Medical Oncology following -Continue Lovenox -Colostomy teaching -SKAGGS MUST REMAIN IN PLACE FOR 2 WEEKS!!!! Problem Qualifiers (1) Bowel obstruction: Qualified Code: K56.69 - Other specified intestinal obstruction (2) HTN (hypertension): Qualified Code: I10 - Essential hypertension Nikki Light Feb 25, 2017 14:29
[2017-02-25 16:00] VITALS: BP 115/59; PULSE 85; RESP 17; TEMP 98.7; O2SAT 92
[2017-02-25] MEDS: LEVOFLOXACIN 750 MG PREMIX INJ 150 ML IV SCH (16:31)
--- NOTE | 2017-02-25 16:47 | HHI.PR ---
Subjective Remarks By mouth intake is improved. Some nausea is present but patient has not had any episodes of vomiting. She is out of the bed to the chair today. Plan for chemotherapy would not be so after further healing occurs so was not likely to start washing her as an inpatient. Objective Vital Signs Date Time Temp Pulse Resp B/P Pulse Ox O2 Delivery O2 Flow Rate FiO2 02/25/17 16:00 98.7 85 17 115/59 92 02/25/17 12:00 98.6 88 18 127/59 96 02/25/17 08:00 98.5 82 17 129/59 94 02/25/17 05:16 19 02/25/17 00:00 97.3 88 21 131/63 96 02/24/17 20:58 22 02/24/17 20:00 98.9 84 20 123/56 96 I/O 02/24/17 02/24/17 02/24/17 02/25/17 02/25/17 02/25/17 07:00 15:00 23:00 07:00 15:00 23:00 Intake Total 877 ml 1693 ml 940 ml 940 ml 818 ml Output Total 2600 ml 2300 ml 600 ml 2900 ml 1675 ml Balance -1723 ml -607 ml 340 ml -1960 ml -857 ml Intake Oral 120 ml 360 ml 240 ml 240 ml 120 ml IV Total 757 ml 1333 ml 700 ml 700 ml 698 ml Output Urine Total 2500 ml 2300 ml 600 ml 2900 ml 1675 ml Stool Total 100 ml Drainage Total 0 ml 0 ml # Bowel Movements 0 Result Diagram: 02/23/17 0643 02/24/17 0535 Procedures With Diagnosis of 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 HEAD: Normocephalic. EYES: No scleral icterus. No injection or drainage. NECK: Supple, trachea midline. No JVD or lymphadenopathy. CARDIOVASCULAR: Regular rate and rhythm without murmurs, gallops, or rubs. RESPIRATORY: Breath sounds equal bilaterally. No accessory muscle use. GASTROINTESTINAL: Abdomen soft, non-tender, nondistended. Normal bowel sounds. MUSCULOSKELETAL: No cyanosis, or edema. BACK: Nontender without obvious deformity. No CVA tenderness. 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 Now status post resection of colon/bladder with ureteral stents and colostomy. Potassium replacement as needed. Tolerating diet. Follow potassium levels. Continue motor activities as tolerated. Bowel Obstruction Colon Tumor S/P colectomy with ureteral stents and colostomy Procedure End Colostomy 02/15/17 Oncology following Surgeon following GI Following Araya to be in place for two weeks PRN pain treatments CT pending for today Acute blood loss anemia GI etiology suspected Guaiac next stool Follow H&H Nausea Follow for improvement PRN anti-emetics IV Hydration Leukocytosis Improving Follow CBC Clindamycin and Flagyl, Levaquin HTN Stable for now Follow BP Hypocalcemia Follow calcium trends Replace if needed Oral thrush Nystatin swish and swallow. UTI Levaquin. DVT prophylaxis Lovenox. Discharge Planning Not yet ready for transfer out of ICU Saul Velázquez MD Feb 25, 2017 16:47
[2017-02-25 18:45] LABS: AUTOMATED NEUTROPHIL # 10.5 TH/MM3 (1.8-7.7); BASOPHIL # 0.1 TH/MM3 (0-0.2); EOSINOPHIL # 0.4 TH/MM3 (0-0.4); EOSINOPHIL % 2.8 % (0.0-4.0); HEMATOCRIT 29.2 % (35.0-46.0); HEMO FLAGS DIFF FINAL; LYMPH % 13.9 % (9.0-44.0); MEAN CELL VOLUME 79.8 FL (80.0-100.0); MEAN CORPUSCULAR HEMOGLOBIN 26.3 PG (27.0-34.0); MEAN CORPUSCULAR HGB CONC 32.9 % (32.0-36.0); MONO % 7.4 % (0.0-8.0); NEUT % 74.9 % (16.0-70.0); PLATELET COUNT 515 TH/MM3 (150-450); RED BLOOD COUNT 3.66 MIL/MM3 (4.00-5.30); RED CELL DISTRIBUTION WIDTH 16.7 % (11.6-17.2); WHITE BLOOD COUNT 14.1 TH/MM3 (4.0-11.0)
[2017-02-25 19:07] LABS: ANION GAP 7 MEQ/L (5-15); AST (GOT) 31 U/L (15-37); BICARBONATE 30.3 MEQ/L (21.0-32.0); BLOOD UREA NITROGEN 5 MG/DL (7-18); CHLORIDE 101 MEQ/L (98-107); GLOMERULAR FILTRATION RATE 95 ML/MIN (>89); POTASSIUM 3.3 MEQ/L (3.5-5.1); SODIUM (NA) 138 MEQ/L (136-145)
[2017-02-25 19:15] LABS: ALKALINE PHOSPHATASE 110 U/L (45-117); ALT (GPT) 29 U/L (10-53); TOTAL BILIRUBIN ADULT 0.1 MG/DL (0.2-1.0)
[2017-02-25] MEDS ORDERED: POTASSIUM CHLORIDE 10 MEQ CONTROLLED RELEASE TAB PO ONE (19:30)
[2017-02-25 20:00] VITALS: BP_SYST 118; BP_SYST 139; BP_DIAS 58; BP_DIAS 67; PULSE 105; PULSE 96; RESP 20; RESP 22; TEMP 98.1; TEMP 98.4; O2SAT 97; O2SAT 98
[2017-02-25 22:00] VITALS: PULSE 92
[2017-02-26] VITALS: BP 124/57; PULSE 94; RESP 20; TEMP 99.4; O2SAT 93
[2017-02-26] MEDS: ONDANSETRON HCL 4 MG/2 ML VIAL IVP SCH ×4 (00:10→16:58)
[2017-02-26] MEDS: ACETAMINOPHEN 1000 MG/100 ML VIAL IV SCH ×4 (00:11→21:45)
[2017-02-26] MEDS: metroNIDAZOLE 500 MG INJ 100 ML IV SCH ×3 (02:35→17:57)
[2017-02-26 04:00] VITALS: BP 135/63; PULSE 77; RESP 18; TEMP 96.3; O2SAT 96
[2017-02-26] MEDS: METOCLOPRAMIDE HCL 10 MG/2 ML VIAL IV PUSH SCH ×3 (05:29→21:48)
[2017-02-26] MEDS: PCA - TOTAL MG MORPHINE DELIVERED PER SHIFT SCH ×3 (06:00→22:00)
[2017-02-26 07:05] LABS: AUTOMATED NEUTROPHIL # 8.8 TH/MM3 (1.8-7.7); BASOPHIL # 0.1 TH/MM3 (0-0.2); BASOPHIL % 0.7 % (0.0-2.0); EOSINOPHIL # 0.4 TH/MM3 (0-0.4); EOSINOPHIL % 3.4 % (0.0-4.0); HEMATOCRIT 28.1 % (35.0-46.0); HEMO FLAGS DIFF FINAL; LYMPH % 13.9 % (9.0-44.0); LYMPHOCYTE # 1.7 TH/MM3 (1.0-4.8); MEAN CELL VOLUME 79.6 FL (80.0-100.0); MEAN CORPUSCULAR HEMOGLOBIN 26.5 PG (27.0-34.0); MEAN CORPUSCULAR HGB CONC 33.3 % (32.0-36.0); MONO % 8.9 % (0.0-8.0); NEUT % 73.1 % (16.0-70.0); PLATELET COUNT 525 TH/MM3 (150-450); RED BLOOD COUNT 3.53 MIL/MM3 (4.00-5.30); RED CELL DISTRIBUTION WIDTH 16.7 % (11.6-17.2)
[2017-02-26 07:24] LABS: ANION GAP 7 MEQ/L (5-15); AST (GOT) 24 U/L (15-37); BICARBONATE 28.7 MEQ/L (21.0-32.0); BLOOD UREA NITROGEN 4 MG/DL (7-18); CHLORIDE 102 MEQ/L (98-107); GLOMERULAR FILTRATION RATE 120 ML/MIN (>89); POTASSIUM 3.4 MEQ/L (3.5-5.1); SODIUM (NA) 138 MEQ/L (136-145)
[2017-02-26 07:26] LABS: ALT (GPT) 31 U/L (10-53)
[2017-02-26 07:27] LABS: ALKALINE PHOSPHATASE 107 U/L (45-117); TOTAL BILIRUBIN ADULT 0.3 MG/DL (0.2-1.0)
[2017-02-26] MEDS: SODIUM CHLORIDE 0.9% FLUSH 10 ML FLUSH IV FLUSH SCH ×2 (07:58→21:00)
[2017-02-26] MEDS: LACTOBACILLUS ACIDOPHILUS TAB PO SCH ×3 (07:58→16:58)
[2017-02-26] MEDS: NITROFURANTOIN MONOHYD MACROCR 100 MG CAP PO SCH ×2 (07:58→16:59)
[2017-02-26] MEDS: NYSTATIN SUSP 500,000 U/5 ML CUP SWISH-SWAL SCH ×4 (07:58→21:47)
[2017-02-26 08:00] VITALS: BP 136/63; PULSE 89; RESP 16; TEMP 97.5; O2SAT 97
[2017-02-26] MEDS ORDERED: POTASSIUM CHLORIDE 10 MEQ CONTROLLED RELEASE TAB PO ONE (08:15)
[2017-02-26] MEDS: POTASSIUM CHLORIDE 20 MEQ CONTROLLED RELEASE TAB PO SCH ×2 (09:23→21:46)
--- NOTE | 2017-02-26 10:06 | HHI.PR ---
Subjective Remarks Tolerating diet . Some nausea is present with potassium intake. Continued improvement in white blood cell count. Hypokalemia remains intermittent problem. Hemoglobin levels are stable. Calcium levels are improving spontaneously. We discussed cessation of IV fluids today which helped with her electrolyte disturbance Objective Vital Signs Date Time Temp Pulse Resp B/P Pulse Ox O2 Delivery O2 Flow Rate FiO2 02/26/17 08:00 97.5 89 16 136/63 97 02/26/17 06:00 18 02/26/17 04:00 96.3 77 18 135/63 96 02/26/17 00:00 99.4 94 20 124/57 93 02/25/17 22:00 92 02/25/17 22:00 16 02/25/17 20:00 98.1 105 22 139/67 98 02/25/17 20:00 98.4 96 20 118/58 97 02/25/17 19:59 16 02/25/17 19:54 16 02/25/17 16:00 98.7 85 17 115/59 92 02/25/17 12:00 98.6 88 18 127/59 96 I/O 02/25/17 02/25/17 02/25/17 02/26/17 02/26/17 02/26/17 07:00 15:00 23:00 07:00 15:00 23:00 Intake Total 940 ml 818 ml 622 ml 795 ml Output Total 2900 ml 1675 ml 1200 ml Balance -1960 ml -857 ml -578 ml 795 ml Intake Oral 240 ml 120 ml IV Total 700 ml 698 ml 622 ml 795 ml Output Urine Total 2900 ml 1675 ml 1200 ml Drainage Total 0 ml # Bowel Movements 0 Result Diagram: 02/26/1737 02/26/17636 Procedures With Diagnosis of 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 HEAD: Normocephalic. EYES: No scleral icterus. No injection or drainage. NECK: Supple, trachea midline. No JVD or lymphadenopathy. CARDIOVASCULAR: Regular rate and rhythm without murmurs, gallops, or rubs. RESPIRATORY: Breath sounds equal bilaterally. No accessory muscle use. GASTROINTESTINAL: Abdomen soft, non-tender, nondistended. Normal bowel sounds. MUSCULOSKELETAL: No cyanosis, or edema. BACK: Nontender without obvious deformity. No CVA tenderness. 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 Status post resection of colon/bladder with ureteral stents and colostomy. Twice a day potassium supplementation initiated. IV hydration stop. Monitor calcium levels and potassium levels. Continue to follow cytosis. Continue to monitor hemoglobin. CBC and BMP ordered for a.m. Bowel Obstruction Colon Tumor S/P colectomy with ureteral stents and colostomy Procedure End Colostomy 02/15/17 Oncology following Surgeon following GI Following Araya to be in place for two weeks PRN pain treatments CT pending for today Acute blood loss anemia GI etiology suspected Guaiac next stool Follow H&H Nausea Follow for improvement PRN anti-emetics IV Hydration Leukocytosis Improving Follow CBC Clindamycin and Flagyl, Levaquin HTN Stable for now Follow BP Hypocalcemia Follow calcium trends Replace if needed Oral thrush Nystatin swish and swallow. UTI Levaquin. DVT prophylaxis Lovenox. Discharge Planning Not yet ready for transfer out of ICU Saul Velázquez MD Feb 26, 2017 10:06 am
[2017-02-26 12:00] VITALS: BP 109/53; PULSE 93; RESP 16; TEMP 97.7; O2SAT 94
[2017-02-26] MEDS: SCOPOLAMINE 1.5 MG PATCH T-DERMAL SCH (12:22)
[2017-02-26] MEDS: REMOVE OLD SCOPOLAMINE PATCH T-DERMAL SCH (12:23)
[2017-02-26] MEDS: ENOXAPARIN SODIUM 40 MG/0.4 ML SYRINGE SQ SCH (12:24)
[2017-02-26 16:00] VITALS: BP 126/60; PULSE 80; RESP 16; TEMP 96.6; O2SAT 97
[2017-02-26] MEDS: LEVOFLOXACIN 750 MG PREMIX INJ 150 ML IV SCH (16:42)
--- NOTE | 2017-02-26 17:44 | HHI.PR ---
Subjective Subjective Notes Resting in bed Was OOB twice yesterday for several hours Pain better Objective Vitals/I&O Vital Signs Date Time Temp Pulse Resp B/P Pulse Ox O2 Delivery O2 Flow Rate FiO2 02/26/17 16:00 96.6 80 16 126/60 97 Labs Laboratory Tests Test 02/25/17 02/26/17 17:50 06:37 White Blood Count 14.1 12.0 Red Blood Count 3.66 3.53 Hemoglobin 9.6 9.4 Hematocrit 29.2 28.1 Mean Corpuscular Volume 79.8 79.6 Mean Corpuscular Hemoglobin 26.3 26.5 Mean Corpuscular Hemoglobin 32.9 33.3 Concent Red Cell Distribution Width 16.7 16.7 Platelet Count 515 525 Mean Platelet Volume 9.4 8.8 Neutrophils (%) (Auto) 74.9 73.1 Lymphocytes (%) (Auto) 13.9 13.9 Monocytes (%) (Auto) 7.4 8.9 Eosinophils (%) (Auto) 2.8 3.4 Basophils (%) (Auto) 1.0 0.7 Neutrophils # (Auto) 10.5 8.8 Lymphocytes # (Auto) 2.0 1.7 Monocytes # (Auto) 1.0 1.1 Eosinophils # (Auto) 0.4 0.4 Basophils # (Auto) 0.1 0.1 CBC Comment DIFF FINAL DIFF FINAL Differential Comment Sodium Level 138 138 Potassium Level 3.3 3.4 Chloride Level 101 102 Carbon Dioxide Level 30.3 28.7 Anion Gap 7 7 Blood Urea Nitrogen 5 4 Creatinine 0.65 0.53 Estimat Glomerular Filtration 95 120 Rate Random Glucose 105 109 Calcium Level 7.6 7.8 Total Bilirubin 0.1 0.3 Aspartate Amino Transf 31 24 (AST/SGOT) Alanine Aminotransferase 29 31 (ALT/SGPT) Alkaline Phosphatase 110 107 Total Protein 6.1 5.8 Albumin 1.9 1.8 Date/Time Procedure Status Source Growth 02/23/17 15:30 Urine Culture - Final Complete Urine Clean Catch NO GROWTH IN 48 HOURS. Radiology Last Impressions Abdomen/Pelvis CT 02/20/17 0000 Signed Impressions: Service Date/Time: Monday, February 20, 2017 16:57 - CONCLUSION: 1. Postsurgical features of bowel resection with left lower quadrant colostomy. Mild prominence of portions of the colon, likely residual. Remainder of the colon is decompressed which accentuates the colonic wall. Mild diffuse colonic wall prominence slightly more than expected for degree of decompression. This may reflect resolving or developing colitis. 2. No evidence for bowel obstruction, infarction or perforation. No drainable fluid collections. 3. Mildly distended gallbladder with subtle pericholecystic fluid. No significant gallbladder wall thickening by CT. The findings are nonspecific but can be seen with very early acute cholecystitis. HIDA scan may be performed to evaluate for cystic duct patency if there is clinical concern. 4. Small bilateral pleural effusions. 5. Interval placement of bilateral double-J ureteral stents. The right ureteral stent has migrated slightly into the bladder with the proximal pigtail located in the proximal ureter. No significant hydronephrosis. Noel Kelly MD Chest X-Ray 02/15/17 0000 Signed Impressions: Service Date/Time: Wednesday, February 15, 2017 15:40 - CONCLUSION: 1. No acute cardiopulmonary disease. Chris López MD Abdomen X-Ray 02/15/17 0000 Signed Impressions: Service Date/Time: Wednesday, February 15, 2017 08:59 - CONCLUSION: 1. Nonspecific bowel gas pattern 2. Focal prominent dilatation of the colon which appears to be secondary to a mass in the sigmoid colon suspicious for colon cancer as noted on the recent CT scan of the abdomen and pelvis.. Avery North MD Cardiovascular: Regular Lungs: Clear Abdomen: Other (midline incision--Prevena dressing removed; decreased drainage ; removed two sunita and packed with saline soaked gauze; no other areas of drainage noted. Tender to palpation. 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 Problem Qualifiers (1) Bowel obstruction: Qualified Code: K56.69 - Other specified intestinal obstruction (2) HTN (hypertension): Qualified Code: I10 - Essential hypertension Nikki Light Feb 26, 2017 17:44
[2017-02-26] MEDS: PROMETHAZINE INJ 25 MG/ML VIAL IM PRN (18:39)
[2017-02-26 20:19] VITALS: BP 118/70; PULSE 82; RESP 17; TEMP 99.4; O2SAT 96
[2017-02-27] VITALS (7 sets, daily range): BP systolic 121–155; BP diastolic 58–71; PULSE 81–100; RESP 16–20; TEMP 97.8–99; O2SAT 95–97
[2017-02-27] MEDS: ONDANSETRON HCL 4 MG/2 ML VIAL IVP SCH ×4 (00:11→18:00)
[2017-02-27] MEDS: ACETAMINOPHEN 1000 MG/100 ML VIAL IV SCH ×4 (02:24→18:49)
[2017-02-27] MEDS: metroNIDAZOLE 500 MG INJ 100 ML IV SCH ×3 (03:51→18:50)
[2017-02-27] MEDS: PCA - TOTAL MG MORPHINE DELIVERED PER SHIFT SCH ×3 (06:00→21:39)
[2017-02-27] MEDS: METOCLOPRAMIDE HCL 10 MG/2 ML VIAL IV PUSH SCH ×3 (06:20→21:38)
[2017-02-27 07:26] LABS: HEMATOCRIT 29.3 % (35.0-46.0); MEAN CELL VOLUME 80.3 FL (80.0-100.0); MEAN CORPUSCULAR HEMOGLOBIN 26.2 PG (27.0-34.0); MEAN CORPUSCULAR HGB CONC 32.6 % (32.0-36.0); PLATELET COUNT 608 TH/MM3 (150-450); RED BLOOD COUNT 3.65 MIL/MM3 (4.00-5.30); RED CELL DISTRIBUTION WIDTH 17.4 % (11.6-17.2); REVIEW FLAG FINAL; WHITE BLOOD COUNT 12.2 TH/MM3 (4.0-11.0)
[2017-02-27 07:29] LABS: BICARBONATE 26.8 MEQ/L (21.0-32.0); POTASSIUM 3.8 MEQ/L (3.5-5.1)
[2017-02-27] MEDS: SODIUM CHLORIDE 0.9% FLUSH 10 ML FLUSH IV FLUSH SCH ×2 (09:00→21:38)
[2017-02-27] MEDS: NITROFURANTOIN MONOHYD MACROCR 100 MG CAP PO SCH ×2 (10:53→18:50)
[2017-02-27] MEDS: POTASSIUM CHLORIDE 20 MEQ CONTROLLED RELEASE TAB PO SCH ×2 (10:53→21:38)
[2017-02-27] MEDS: NYSTATIN SUSP 500,000 U/5 ML CUP SWISH-SWAL SCH ×4 (10:53→22:34)
[2017-02-27] MEDS: LACTOBACILLUS ACIDOPHILUS TAB PO SCH ×3 (10:53→18:50)
--- NOTE | 2017-02-27 12:51 | HHI.PR ---
Subjective Subjective Notes Resting in bed Was out of bed to the chair this morning Little nausea overnight; none today Objective Vitals/I&O Vital Signs Date Time Temp Pulse Resp B/P Pulse Ox O2 Delivery O2 Flow Rate FiO2 02/27/17 08:00 98.7 89 18 129/58 96 Labs Laboratory Tests Test 02/27/17 06:00 White Blood Count 12.2 Red Blood Count 3.65 Hemoglobin 9.6 Hematocrit 29.3 Mean Corpuscular Volume 80.3 Mean Corpuscular Hemoglobin 26.2 Mean Corpuscular Hemoglobin 32.6 Concent Red Cell Distribution Width 17.4 Platelet Count 608 Mean Platelet Volume 8.8 Sodium Level 135 Potassium Level 3.8 Chloride Level 101 Carbon Dioxide Level 26.8 Anion Gap 7 Blood Urea Nitrogen 5 Creatinine 0.54 Estimat Glomerular Filtration 118 Rate Random Glucose 120 Calcium Level 8.3 Date/Time Procedure Status Source Growth 02/23/17 15:30 Urine Culture - Final Complete Urine Clean Catch NO GROWTH IN 48 HOURS. Radiology Last Impressions Abdomen/Pelvis CT 02/20/17 0000 Signed Impressions: Service Date/Time: Monday, February 20, 2017 16:57 - CONCLUSION: 1. Postsurgical features of bowel resection with left lower quadrant colostomy. Mild prominence of portions of the colon, likely residual. Remainder of the colon is decompressed which accentuates the colonic wall. Mild diffuse colonic wall prominence slightly more than expected for degree of decompression. This may reflect resolving or developing colitis. 2. No evidence for bowel obstruction, infarction or perforation. No drainable fluid collections. 3. Mildly distended gallbladder with subtle pericholecystic fluid. No significant gallbladder wall thickening by CT. The findings are nonspecific but can be seen with very early acute cholecystitis. HIDA scan may be performed to evaluate for cystic duct patency if there is clinical concern. 4. Small bilateral pleural effusions. 5. Interval placement of bilateral double-J ureteral stents. The right ureteral stent has migrated slightly into the bladder with the proximal pigtail located in the proximal ureter. No significant hydronephrosis. Noel Kelly MD Chest X-Ray 02/15/17 0000 Signed Impressions: Service Date/Time: Wednesday, February 15, 2017 15:40 - CONCLUSION: 1. No acute cardiopulmonary disease. Chris López MD Abdomen X-Ray 02/15/17 0000 Signed Impressions: Service Date/Time: Wednesday, February 15, 2017 08:59 - CONCLUSION: 1. Nonspecific bowel gas pattern 2. Focal prominent dilatation of the colon which appears to be secondary to a mass in the sigmoid colon suspicious for colon cancer as noted on the recent CT scan of the abdomen and pelvis.. Avery North MD Cardiovascular: Regular Lungs: Clear Abdomen: Other (midline incision; stapled; area opened with packing in place; colostomy in place with stool; abdomen soft; mildly tender to palpation) Extremities: SCD's on, Other (mild generalized edema ) Narrative Exam Araya in place---yellow; sediment A/P Problem List: (1) Mass of colon (2) Bowel obstruction (3) Small bowel obstruction (4) HTN (hypertension) (5) Nausea Assessment and Plan 56 year old female POD12 ex-lap; resection of sigmoid hemicolectomy en block with bladder and partial colon side wall;placement of ureteral stens with primary bladder repair; primary colon repair; Krueger's procedure with end colostomy -Continue to monitor WBC -Zofran/Phenergan for nausea -Reglan -IV Tylenol for pain -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
--- NOTE | 2017-02-27 13:17 | HHI.PR ---
Subjective Remarks Mild nausea with potassium which does not seem to be a problem when she takes it with food. Leukocytosis is stable. Hemoglobin levels are stable. With supplementation potassium levels have normalized. Improved ambulation through time. Objective Vital Signs Date Time Temp Pulse Resp B/P Pulse Ox O2 Delivery O2 Flow Rate FiO2 02/27/17 12:00 98.3 90 20 124/58 96 02/27/17 08:00 98.7 89 18 129/58 96 02/27/17 04:33 97.8 82 17 155/71 95 02/27/17 00:18 98.9 81 17 125/59 97 02/26/17 22:00 16 02/26/17 20:19 99.4 82 17 118/70 96 02/26/17 16:00 96.6 80 16 126/60 97 02/26/17 14:00 16 I/O 02/26/17 02/26/17 02/26/17 02/27/17 02/27/17 02/27/17 06:59 14:59 22:59 06:59 14:59 22:59 Intake Total 795 ml 1040 ml 240 ml 974 ml Output Total 3500 ml 2000 ml 2000 ml Balance 795 ml -2460 ml -1760 ml -1026 ml Intake Oral 240 ml 240 ml 180 ml IV Total 795 ml 800 ml 794 ml Output Urine Total 3500 ml 1800 ml 2000 ml Stool Total 200 ml # Bowel Movements 0 Result Diagram: 02/27/17 0600 02/27/17 0600 Procedures With Diagnosis of 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 HEAD: Normocephalic. EYES: No scleral icterus. No injection or drainage. NECK: Supple, trachea midline. No JVD or lymphadenopathy. CARDIOVASCULAR: Regular rate and rhythm without murmurs, gallops, or rubs. RESPIRATORY: Breath sounds equal bilaterally. No accessory muscle use. GASTROINTESTINAL: Abdomen soft, non-tender, nondistended. Normal bowel sounds. MUSCULOSKELETAL: No cyanosis, or edema. BACK: Nontender without obvious deformity. No CVA tenderness. 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 Status post resection of colon/bladder with ureteral stents and colostomy. Twice a day potassium supplementation continued. Potassium levels have stabilized as far. Does potassium levels with food. Continue to monitor CBC and BMP, labs ordered for a.m. Bowel Obstruction Colon Tumor S/P colectomy with ureteral stents and colostomy Procedure End Colostomy 02/15/17 Oncology following Surgeon following GI Following Araya to be in place for two weeks PRN pain treatments CT pending for today Acute blood loss anemia GI etiology suspected Guaiac next stool Follow H&H Nausea Follow for improvement PRN anti-emetics IV Hydration Leukocytosis Improving Follow CBC Clindamycin and Flagyl, Levaquin HTN Stable for now Follow BP Hypocalcemia Follow calcium trends Replace if needed Oral thrush Nystatin swish and swallow. UTI Levaquin. DVT prophylaxis Lovenox. Discharge Planning Not yet ready for transfer out of ICU Saul Velázquez MD Feb 27, 2017 13:17
[2017-02-27] MEDS: ENOXAPARIN SODIUM 40 MG/0.4 ML SYRINGE SQ SCH (13:50)
[2017-02-27] MEDS: LEVOFLOXACIN 750 MG PREMIX INJ 150 ML IV SCH (16:00)
[2017-02-28 00:01] VITALS: BP 136/62; PULSE 87; RESP 17; TEMP 98.6; O2SAT 96
[2017-02-28] MEDS: ONDANSETRON HCL 4 MG/2 ML VIAL IVP SCH ×5 (00:18→23:42)
[2017-02-28] MEDS: ACETAMINOPHEN 1000 MG/100 ML VIAL IV SCH ×2 (00:19→06:13)
[2017-02-28] MEDS: metroNIDAZOLE 500 MG INJ 100 ML IV SCH ×3 (03:29→17:20)
[2017-02-28 04:35] VITALS: BP 130/59; PULSE 86; RESP 18; TEMP 96.2; O2SAT 97
[2017-02-28] MEDS: PCA - TOTAL MG MORPHINE DELIVERED PER SHIFT SCH (06:00)
[2017-02-28] MEDS: METOCLOPRAMIDE HCL 10 MG/2 ML VIAL IV PUSH SCH ×3 (06:13→22:11)
[2017-02-28 08:00] VITALS: BP 131/62; PULSE 83; RESP 20; TEMP 97.9; O2SAT 97
[2017-02-28 08:18] LABS: MEAN CELL VOLUME 79.4 FL (80.0-100.0); MEAN CORPUSCULAR HEMOGLOBIN 26.1 PG (27.0-34.0); MEAN CORPUSCULAR HGB CONC 32.9 % (32.0-36.0); PLATELET COUNT 644 TH/MM3 (150-450); RED BLOOD COUNT 3.65 MIL/MM3 (4.00-5.30); RED CELL DISTRIBUTION WIDTH 17.7 % (11.6-17.2); REVIEW FLAG FINAL; WHITE BLOOD COUNT 11.1 TH/MM3 (4.0-11.0)
[2017-02-28 08:44] LABS: BICARBONATE 26.6 MEQ/L (21.0-32.0); POTASSIUM 4.1 MEQ/L (3.5-5.1)
[2017-02-28] MEDS: SODIUM CHLORIDE 0.9% FLUSH 10 ML FLUSH IV FLUSH SCH ×2 (09:00→22:11)
--- NOTE | 2017-02-28 09:23 | HHI.FF ---
Face to Face Verification Diagnosis: (1) Bowel obstruction (2) Mass of colon Physical Therapy Order: Evaluate and Treat, Improve ambulation, Strength and gait training Instructions: No restrictions Home Health Nursing Order: Wound care and dressing changes Nursing assessment with vital signs Instructions: Continued colostomy care and teaching (patient and family) Midline incision: saline soaked 2x2 into open area; cover with dry 4x4 and ABD; secure with paper tape; twice daily (once by RN and once by family) I have seen patient Leidy Restrepo on 02/28/17. My clinical findings support the need for the requested home health care services because: Limited ability to care for self High risk of falls I certify that my clinical findings support that this patient is homebound because: Post-op weakness Nikki Light Feb 28, 2017 09:23
--- NOTE | 2017-02-28 09:36 | HHI.PR ---
Subjective Remarks Improving ambulation. White blood cell count is declining at 11.1. Hemoglobin stable at 9.5. Potassium level is stable at 4.1. Objective Vital Signs Date Time Temp Pulse Resp B/P Pulse Ox O2 Delivery O2 Flow Rate FiO2 02/28/17 08:00 97.9 83 20 131/62 97 02/28/17 06:00 20 02/28/17 04:35 96.2 86 18 130/59 97 02/28/17 00:01 98.6 87 17 136/62 96 02/27/17 21:39 18 02/27/17 20:11 97.9 89 17 121/60 96 02/27/17 20:00 100 02/27/17 19:20 18 02/27/17 16:00 98.8 88 17 128/60 96 02/27/17 14:00 18 02/27/17 12:00 98.3 90 20 124/58 96 I/O 02/27/17 02/27/17 02/27/17 02/28/17 02/28/17 02/28/17 07:00 15:00 23:00 07:00 15:00 23:00 Intake Total 974 ml 480 ml 1033 ml 847 ml Output Total 2000 ml 800 ml 1850 ml 1850 ml Balance -1026 ml -320 ml -817 ml -1003 ml Intake Oral 180 ml 480 ml 280 ml 380 ml IV Total 794 ml 753 ml 467 ml Output Urine Total 2000 ml 800 ml 1800 ml 1800 ml Stool Total 50 ml 50 ml Result Diagram: 02/28/1772402/28/1725 Procedures With Diagnosis of 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 HEAD: Normocephalic. EYES: No scleral icterus. No injection or drainage. NECK: Supple, trachea midline. No JVD or lymphadenopathy. CARDIOVASCULAR: Regular rate and rhythm without murmurs, gallops, or rubs. RESPIRATORY: Breath sounds equal bilaterally. No accessory muscle use. GASTROINTESTINAL: Abdomen soft, non-tender, nondistended. Normal bowel sounds. MUSCULOSKELETAL: No cyanosis, or edema. BACK: Nontender without obvious deformity. No CVA tenderness. 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 Status post resection of colon/bladder with ureteral stents and colostomy. Doing well today. Ambulating well. Follow CBC and BMP in a.m. to check potassium level, hemoglobin level, and white blood cell count. Bowel Obstruction Colon Tumor S/P colectomy with ureteral stents and colostomy Procedure End Colostomy 02/15/17 Oncology following Surgeon following GI Following Araya to be in place for two weeks PRN pain treatments CT pending for today Acute blood loss anemia GI etiology suspected Guaiac next stool Follow H&H Nausea Follow for improvement PRN anti-emetics IV Hydration Leukocytosis Improving Follow CBC Clindamycin and Flagyl, Levaquin HTN Stable for now Follow BP Hypocalcemia Follow calcium trends Replace if needed Oral thrush Nystatin swish and swallow. UTI Levaquin. DVT prophylaxis Lovenox. Discharge Planning Not yet ready for transfer out of ICU Saul Velázquez MD Feb 28, 2017 09:36
[2017-02-28] MEDS ORDERED: MORPHINE SULFATE 4 MG/ML INJ IV PUSH PRN (09:45)
[2017-02-28] MEDS: NYSTATIN SUSP 500,000 U/5 ML CUP SWISH-SWAL SCH ×4 (09:53→22:11)
[2017-02-28] MEDS: LACTOBACILLUS ACIDOPHILUS TAB PO SCH ×3 (09:53→17:20)
[2017-02-28] MEDS: NITROFURANTOIN MONOHYD MACROCR 100 MG CAP PO SCH ×2 (09:53→17:20)
[2017-02-28] MEDS: POTASSIUM CHLORIDE 20 MEQ CONTROLLED RELEASE TAB PO SCH ×2 (09:53→22:11)
[2017-02-28 12:00] VITALS: BP 130/63; PULSE 84; RESP 18; TEMP 99.4; O2SAT 96
[2017-02-28] MEDS: ENOXAPARIN SODIUM 40 MG/0.4 ML SYRINGE SQ SCH (13:15)
[2017-02-28] MEDS: LEVOFLOXACIN 750 MG PREMIX INJ 150 ML IV SCH (15:26)
[2017-02-28] MEDS: oxyCODONE/ACETAMINOPHEN 5 MG/325 MG TAB PO PRN ×3 (15:26→22:48)
[2017-02-28 16:57] VITALS: BP 123/59; PULSE 95; RESP 18; TEMP 99.6; O2SAT 97
[2017-02-28 20:00] VITALS: BP 125/56; PULSE 95; RESP 19; TEMP 97; O2SAT 96
--- NOTE | 2017-02-28 21:30 | HHI.PR ---
Subjective Subjective Notes Still weak but getting out of bed more Objective Vitals/I&O Vital Signs Date Time Temp Pulse Resp B/P Pulse Ox O2 Delivery O2 Flow Rate FiO2 02/28/17 16:57 99.6 95 18 123/59 97 Labs Laboratory Tests Test 02/28/17 07:25 White Blood Count 11.1 Red Blood Count 3.65 Hemoglobin 9.5 Hematocrit 29.0 Mean Corpuscular Volume 79.4 Mean Corpuscular Hemoglobin 26.1 Mean Corpuscular Hemoglobin 32.9 Concent Red Cell Distribution Width 17.7 Platelet Count 644 Mean Platelet Volume 8.7 Sodium Level 137 Potassium Level 4.1 Chloride Level 103 Carbon Dioxide Level 26.6 Anion Gap 7 Blood Urea Nitrogen 6 Creatinine 0.55 Estimat Glomerular Filtration 115 Rate Random Glucose 123 Calcium Level 8.3 Radiology Last Impressions Abdomen/Pelvis CT 02/20/17 0000 Signed Impressions: Service Date/Time: Monday, February 20, 2017 16:57 - CONCLUSION: 1. Postsurgical features of bowel resection with left lower quadrant colostomy. Mild prominence of portions of the colon, likely residual. Remainder of the colon is decompressed which accentuates the colonic wall. Mild diffuse colonic wall prominence slightly more than expected for degree of decompression. This may reflect resolving or developing colitis. 2. No evidence for bowel obstruction, infarction or perforation. No drainable fluid collections. 3. Mildly distended gallbladder with subtle pericholecystic fluid. No significant gallbladder wall thickening by CT. The findings are nonspecific but can be seen with very early acute cholecystitis. HIDA scan may be performed to evaluate for cystic duct patency if there is clinical concern. 4. Small bilateral pleural effusions. 5. Interval placement of bilateral double-J ureteral stents. The right ureteral stent has migrated slightly into the bladder with the proximal pigtail located in the proximal ureter. No significant hydronephrosis. Noel Kelly MD Chest X-Ray 02/15/17 0000 Signed Impressions: Service Date/Time: Wednesday, February 15, 2017 15:40 - CONCLUSION: 1. No acute cardiopulmonary disease. Chris López MD Abdomen X-Ray 02/15/17 0000 Signed Impressions: Service Date/Time: Wednesday, February 15, 2017 08:59 - CONCLUSION: 1. Nonspecific bowel gas pattern 2. Focal prominent dilatation of the colon which appears to be secondary to a mass in the sigmoid colon suspicious for colon cancer as noted on the recent CT scan of the abdomen and pelvis.. Avery North MD Cardiovascular: Regular Lungs: Clear Abdomen: Other (midline incision with sunita; minimal drainage; open area packing removed---minimal drainage; abd tender; soft; colostomy with pink stoma ; stool in appliance ) Extremities: No edema Narrative Exam Araya in place---yellow; sediment A/P Problem List: (1) Mass of colon (2) Bowel obstruction (3) Small bowel obstruction (4) HTN (hypertension) (5) Nausea Assessment and Plan 56 year old female POD13 ex-lap; resection of sigmoid hemicolectomy en block with bladder and partial colon side wall;placement of ureteral stens with primary bladder repair; primary colon repair; Krueger's procedure with end colostomy -Continue to monitor WBC -Zofran/Phenergan for nausea -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
[2017-03-01] VITALS: BP 125/55; PULSE 91; RESP 20; TEMP 98.6; O2SAT 97
[2017-03-01] MEDS: oxyCODONE/ACETAMINOPHEN 5 MG/325 MG TAB PO PRN ×4 (03:23→14:04)
[2017-03-01] MEDS: metroNIDAZOLE 500 MG INJ 100 ML IV SCH ×2 (03:30→09:25)
[2017-03-01 05:16] LABS: HEMATOCRIT 30.8 % (35.0-46.0); MEAN CELL VOLUME 80.7 FL (80.0-100.0); MEAN CORPUSCULAR HEMOGLOBIN 26.6 PG (27.0-34.0); MEAN CORPUSCULAR HGB CONC 32.9 % (32.0-36.0); PLATELET COUNT 675 TH/MM3 (150-450); RED BLOOD COUNT 3.82 MIL/MM3 (4.00-5.30); RED CELL DISTRIBUTION WIDTH 17.6 % (11.6-17.2); REVIEW FLAG FINAL; WHITE BLOOD COUNT 11.3 TH/MM3 (4.0-11.0)
[2017-03-01 05:30] LABS: BICARBONATE 28.1 MEQ/L (21.0-32.0); POTASSIUM 4.2 MEQ/L (3.5-5.1)
[2017-03-01] MEDS: METOCLOPRAMIDE HCL 10 MG/2 ML VIAL IV PUSH SCH ×2 (05:36→13:25)
[2017-03-01] MEDS: ONDANSETRON HCL 4 MG/2 ML VIAL IVP SCH ×2 (05:36→12:00)
[2017-03-01 08:00] VITALS: BP 126/60; PULSE 88; RESP 18; TEMP 95.8; O2SAT 96
[2017-03-01] MEDS: SODIUM CHLORIDE 0.9% FLUSH 10 ML FLUSH IV FLUSH SCH (09:00)
[2017-03-01] MEDS: NITROFURANTOIN MONOHYD MACROCR 100 MG CAP PO SCH (09:24)
[2017-03-01] MEDS: LACTOBACILLUS ACIDOPHILUS TAB PO SCH ×2 (09:24→13:24)
[2017-03-01] MEDS: NYSTATIN SUSP 500,000 U/5 ML CUP SWISH-SWAL SCH ×2 (09:24→13:24)
[2017-03-01] MEDS ORDERED: ABDOMINAL BINDE1 MI1 (10:03)
[2017-03-01] MEDS ORDERED: COMMODE BEDSIDE1 MI1 (10:03)
[2017-03-01] MEDS ORDERED: WALKER/ADULT/FO1 MIS (10:03)
[2017-03-01] MEDS ORDERED: POTA20TA5 PO (10:05)
[2017-03-01] MEDS ORDERED: OXYC1TAB63 PO (10:05)
[2017-03-01] MEDS ORDERED: PROM25TA10 PO (10:05)
[2017-03-01] MEDS ORDERED: ZOFR4TAB PO (10:05)
[2017-03-01] MEDS ORDERED: WHEEMIS3 (10:32)
[2017-03-01] MEDS ORDERED: METR-1 PO (11:25)
[2017-03-01] MEDS ORDERED: SCOP1PAT2 T-DERMAL (11:25)
[2017-03-01] MEDS ORDERED: LEVA750T9 PO (11:25)
[2017-03-01] MEDS ORDERED: PERC5TAB12 PO (11:40)
[2017-03-01 12:00] VITALS: BP 131/58; PULSE 88; RESP 20; TEMP 96.4; O2SAT 95
--- NOTE | 2017-03-01 12:16 | HHI.PR ---
Subjective Subjective Notes Sitting on the side of the better Pain controlled Feels comfortable going home Objective Vitals/I&O Vital Signs Date Time Temp Pulse Resp B/P Pulse Ox O2 Delivery O2 Flow Rate FiO2 03/01/17 08:00 95.8 88 18 126/60 96 Labs Laboratory Tests Test 03/01/17 03:45 White Blood Count 11.3 Red Blood Count 3.82 Hemoglobin 10.1 Hematocrit 30.8 Mean Corpuscular Volume 80.7 Mean Corpuscular Hemoglobin 26.6 Mean Corpuscular Hemoglobin 32.9 Concent Red Cell Distribution Width 17.6 Platelet Count 675 Mean Platelet Volume 9.3 Sodium Level 137 Potassium Level 4.2 Chloride Level 101 Carbon Dioxide Level 28.1 Anion Gap 8 Blood Urea Nitrogen 11 Creatinine 0.65 Estimat Glomerular Filtration 95 Rate Random Glucose 122 Calcium Level 8.6 Radiology Last Impressions Abdomen/Pelvis CT 02/20/17 0000 Signed Impressions: Service Date/Time: Monday, February 20, 2017 16:57 - CONCLUSION: 1. Postsurgical features of bowel resection with left lower quadrant colostomy. Mild prominence of portions of the colon, likely residual. Remainder of the colon is decompressed which accentuates the colonic wall. Mild diffuse colonic wall prominence slightly more than expected for degree of decompression. This may reflect resolving or developing colitis. 2. No evidence for bowel obstruction, infarction or perforation. No drainable fluid collections. 3. Mildly distended gallbladder with subtle pericholecystic fluid. No significant gallbladder wall thickening by CT. The findings are nonspecific but can be seen with very early acute cholecystitis. HIDA scan may be performed to evaluate for cystic duct patency if there is clinical concern. 4. Small bilateral pleural effusions. 5. Interval placement of bilateral double-J ureteral stents. The right ureteral stent has migrated slightly into the bladder with the proximal pigtail located in the proximal ureter. No significant hydronephrosis. Noel Kelly MD Chest X-Ray 02/15/17 0000 Signed Impressions: Service Date/Time: Wednesday, February 15, 2017 15:40 - CONCLUSION: 1. No acute cardiopulmonary disease. Chris López MD Abdomen X-Ray 02/15/17 0000 Signed Impressions: Service Date/Time: Wednesday, February 15, 2017 08:59 - CONCLUSION: 1. Nonspecific bowel gas pattern 2. Focal prominent dilatation of the colon which appears to be secondary to a mass in the sigmoid colon suspicious for colon cancer as noted on the recent CT scan of the abdomen and pelvis.. Avery North MD Cardiovascular: Regular Lungs: Clear Abdomen: Other (midline incision with minimal drainage; sunita in place; colostomy with pink stoma; stool in appliance ) Extremities: No edema Narrative Exam Araya removed; + void post removal A/P Problem List: (1) Mass of colon (2) Bowel obstruction (3) Small bowel obstruction (4) HTN (hypertension) (5) Nausea Assessment and Plan 56 year old female POD14 ex-lap; resection of sigmoid hemicolectomy en block with bladder and partial colon side wall;placement of ureteral stens with primary bladder repair; primary colon repair; Krueger's procedure with end colostomy -Zofran/Phenergan/scop patch for nausea -Percocet for pain control -Regular diet -Continue IS -Colostomy teaching - clear for DC -RX on chart -Follow up with Dr. Martines SaturdayMarch 05 at 1130am Problem Qualifiers (1) Bowel obstruction: Qualified Code: K56.69 - Other specified intestinal obstruction (2) HTN (hypertension): Qualified Code: I10 - Essential hypertension Nikki Light Mar 01, 2017 12:15
[2017-03-01] MEDS: REMOVE OLD SCOPOLAMINE PATCH T-DERMAL SCH (13:00)
[2017-03-01] MEDS ORDERED: NYST1000 SWISH-SWAL (13:05)
[2017-03-01] MEDS: SCOPOLAMINE 1.5 MG PATCH T-DERMAL SCH (13:24)
[2017-03-01] MEDS: ENOXAPARIN SODIUM 40 MG/0.4 ML SYRINGE SQ SCH ×2 (13:24→14:00)
--- NOTE | 2017-03-01 14:29 | HHI.DS ---
Discharge Summary Admission Date Feb 15, 2017 at 02:53 Discharge Date: Mar 01, 2017 Admitting Diagnosis Bowel obstruction (1) Small bowel obstruction ICD Code: K56.69 (2) HTN (hypertension) ICD Code: I10 (3) Leukocytosis ICD Code: D72.829 Procedures Exploratory laparotomy. Colon mass removal with colectomy and colostomy. Partially bladder revision secondary to extension of mass and bladder. Brief History - From Admission Written by KATIE Espinal acting as scribe for [Braxton] on 02/15/17 at 04: 19. 56 y/o female with a history of HTN came to the ED with complaints of epigastric pain since Saturday, that continues to worsen with associated nausea and vomiting 2-3 times a day. She has not been able to eat since Saturday She has been able to have a small BM and pass gas. She has been having fevers and chills , but did not take a temperature. Denies any chest pain, or sob. Last Sigmoscopy was 8 years ago in which just showed hemorrhoids. She is currently here visiting from [place]. CBC/BMP: 03/01/17 0345 03/01/17 0345 Significant Findings Laboratory Tests Test 02/27/17 02/28/17 03/01/17 06:00 07:25 03:45 White Blood Count 12.2 TH/MM3 11.1 TH/MM3 11.3 TH/MM3 (4.0-11.0) (4.0-11.0) (4.0-11.0) Red Blood Count 3.65 MIL/MM3 3.65 MIL/MM3 3.82 MIL/MM3 (4.00-5.30) (4.00-5.30) (4.00-5.30) Hemoglobin 9.6 GM/DL 9.5 GM/DL 10.1 GM/DL (11.6-15.3) (11.6-15.3) (11.6-15.3) Hematocrit 29.3 % 29.0 % 30.8 % (35.0-46.0) (35.0-46.0) (35.0-46.0) Mean Corpuscular Hemoglobin 26.2 PG 26.1 PG 26.6 PG (27.0-34.0) (27.0-34.0) (27.0-34.0) Red Cell Distribution Width 17.4 % 17.7 % 17.6 % (11.6-17.2) (11.6-17.2) (11.6-17.2) Platelet Count 608 TH/MM3 644 TH/MM3 675 TH/MM3 (150-450) (150-450) (150-450) Sodium Level 135 MEQ/L (136-145) Blood Urea Nitrogen 5 MG/DL (7-18) 6 MG/DL (7-18) Random Glucose 120 MG/DL 123 MG/DL 122 MG/DL (74-106) (74-106) (74-106) Calcium Level 8.3 MG/DL 8.3 MG/DL (8.5-10.1) (8.5-10.1) Mean Corpuscular Volume 79.4 FL (80.0-100.0) Hospital Course Mrs. Restrepo is a [id number] female. She was admitted secondary to a bowel obstruction. 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 She had resection of the mass and needed resection of part of her bladder secondary to this. Plan for chemotherapy in approximately 4 weeks. Colostomy is present. She has been recovering slowly but regularly through time and at this point is ambulatory with a walker. She has been cleared for surgery for discharge to home. Patient wishes to discharge home. [employer] insurance does not provide her home health PT but she thinks she'll feel to work with outpatient PT. 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 Blood counts have been stable. Patient is stable for discharge to home. Discharge home today. Pt Condition on Discharge: Stable Discharge Disposition: Discharge Home Discharge Time: > 30 minutes Discharge Instructions DIET: Follow Instructions for: As Tolerated, No Restrictions Activities you can perform: Regular-No Restrictions Follow up Referrals: Oncology - 4 Weeks PCP Follow-up - 1 Week Surgical - 1 Week Surgical - 03/05/17 with Ean Martines MD Follow up appointment SaturdayMarch 05 at 11:30am New Medications: Abdominal Binder/Elastic (Abdominal Binder/Elastic) 1 Mis Mis 1 EA .ROUTE DIRECTED #1 EA Commode Bedside (Commode Bedside) 1 Mis Mis 1 EA .ROUTE DIRECTED #1 Ref 0 EA Levofloxacin (Levaquin) 750 Mg Tablet 750 MG PO DAILY Infection Days 5 TAB Metronidazole (Flagyl) 500 Mg Tab 500 MG PO TID Infection Days 5 Ref 0 TAB Ondansetron (Zofran) 4 Mg Tab 4 MG PO Q6HR PRN NAUSEA OR VOMITING #90 Ref 0 TAB Promethazine (Phenergan) 25 Mg Tablet 25 MG PO Q6H PRN NAUSEA OR VOMITING #90 Ref 0 TAB Walker/Adult/Folding (Walker/Adult/Folding) 1 Mis Mis 1 EA .ROUTE DIRECTED #1 Ref 0 EA Wheelchair (Wheelchair) 1 Mis Mis 1 EA .ROUTE DIRECTED Weakness #1 Ref 0 EA Nystatin Liq (Nystatin Liq) 100,000 unit/ml Susp 5 ML SWISH-SWAL QID thrush Days 10 UNIT Potassium Chloride Microencaps (Potassium Chloride Microencaps) 20 Meq Tab 20 MEQ PO DAILY Hypokalemia #5 TAB Scopolamine (Transderm-Scop) 1 Mg/3 Days Dis 1 PATCH T-DERMAL Q3D Nausea #5 PATCH Continued Medications: Benazepril (Benazepril) 10 Mg Tab 10 MG PO DAILY Blood Pressure Management #30 Ref 0 TAB Oxycodone-Acetaminophen (Percocet) 5-325 mg Tab 1-2 TAB PO Q4H PRN PAIN Ref 0 TAB Saul Velázquez MD Mar 01, 2017 14:29
[2017-03-02] MEDS ORDERED: POTASSIUM CHLORIDE 20 MEQ CONTROLLED RELEASE TAB PO SCH (09:00)
== END 2017-03-01 16:15 | disposition home or self-care (01) | DRG 330 ==
LOC: NEPE 21:44 → NEDA 02-15 02:53 → N06B 02-15 03:48 → N03B 02-15 19:51 → N03A 02-15 23:51 → N07B 02-22 20:47
PROVIDERS: ADMIT Hospitalist; ATTEND Hospitalist
PROC: 0TBB0ZZ Excision of Bladder, Open Approach (ICD-10-PCS; 2017-02-15)
PROC: 0D1L0Z4 Bypass Transverse Colon to Cutaneous, Open Approach (ICD-10-PCS; 2017-02-15)
PROC: 0DBE0ZZ Excision of Large Intestine, Open Approach (ICD-10-PCS; 2017-02-15)
PROC: 0T780DZ Dilation of Bilateral Ureters with Intraluminal Device, Open Approach (ICD-10-PCS; 2017-02-15)
PROC: 0DBN8ZX Excision of Sigmoid Colon, Via Natural or Artificial Opening Endoscopic, Diagnostic (ICD-10-PCS; 2017-02-15)
PROC: 0DTN0ZZ Resection of Sigmoid Colon, Open Approach (ICD-10-PCS; principal; 2017-02-15 13:05)
PROC: 30233N1 Transfusion of Nonautologous Red Blood Cells into Peripheral Vein, Percutaneous Approach (ICD-10-PCS; 2017-02-21)
DX: C18.7 Malignant neoplasm of sigmoid colon (principal); K56.60 Unspecified intestinal obstruction; B37.0 Candidal stomatitis; E83.51 Hypocalcemia; E66.9 Obesity, unspecified; N39.0 Urinary tract infection, site not specified; D62 Acute posthemorrhagic anemia; C77.2 Secondary and unspecified malignant neoplasm of intra-abdominal lymph nodes; I10 Essential (primary) hypertension; N85.4 Malposition of uterus; E87.6 Hypokalemia; Z68.32 Body mass index [BMI] 32.0-32.9, adult
CPT/HCPCS: 36430; 71010; 74000; 74177; 76937; 80048; 80053; 80076; 81001; 82272; 82378; 83605; 83690; 83735; 84100; 84132; 84133; 84155; 84484; 84703; 85007; 85025; 85027; 85610; 85730; 86301; 86850; 86900; 86901; 86920; 87077; 87086; 87186; 87641; 88305; 88307; 88309; 93005; 94150; 96361; 96374; 96375; C1769; C2617; J0131; J0610; J1170; J1650; J1956; J2250; J2270; J2405; J2550; J2765; J3010; J3480; J7030; J7040; J7050; J7120; P9016; Q9967